=== PATIENT | female | born 1955 | race Caucasian/White ===

== ENCOUNTER 2021-02-09 13:36 | Outpatient (REF) | payer MEDICARE, SELFPAY ==
[2021-02-09 14:06] LABS: Blood Urea Nitrogen 21 mg/dL (9-16); Estimated Glomerular Filt Rate 45
== END 2021-02-09 13:37 | disposition home or self-care (01) ==
LOC: HO.LNP 13:36
PROVIDERS: Visit Provider Internal Medicine
DX: R79.9 Abnormal finding of blood chemistry, unspecified (principal)
CPT/HCPCS: 82565; 84520

== ENCOUNTER 2021-06-23 09:00 | Outpatient (REF) | payer MEDICARE, SELFPAY ==
--- NOTE | ~2021-06-23 | MM_ITS ---
EXAMINATION: MM SCREENING DIGITAL BREAST TOMOSYNTHESIS, BILATERAL CLINICAL INFORMATION: Screening. Asymptomatic. The lifetime risk of breast cancer based on the Tyrer-Cuzick Model is 2.8%. COMPARISON: Mammography: August 08, 2013 TECHNIQUE: Digital breast tomosynthesis is performed in both the craniocaudal and mediolateral oblique views along with computer-aided detection (CAD). Synthesized 2D images are generated from the tomosynthesis. FINDINGS: The breasts are almost entirely fatty (ACR BI-RADS breast composition Category a). There are no significant masses, abnormal calcifications, or other abnormalities. MM/MM tomosynthesis screening BI IMPRESSION: There are no significant changes from prior study. ASSESSMENT: BI-RADS 1: Negative RECOMMENDATION: Routine annual mammography screening. This patient's information was entered into a reminder system with a target due date for their next mammogram.
--- NOTE | ~2021-06-23 | MM_ITS ---
EXAMINATION: BONE DENSITOMETRY CLINICAL INDICATION: Screening for osteoporosis. COMPARISON: None (current study represents initial baseline exam). TECHNIQUE: Using a Web and Rank DXA System (software version: 13.1) manufactured by [employer], dual-energy x-ray absorptiometry was performed of the lumbar spine and left hip. The images are of good technical quality. Summary results are attached. FINDINGS: AP SPINE L1-L4: BMD 1.116 g/cm2, Z-score 0.9, T-score -0.5, normal. LEFT FEMUR, NECK: BMD 0.739 g/cm2, Z-score -0.7, T-score -2.2, osteopenia. LEFT FEMUR, TOTAL: BMD 0.819 g/cm2, Z-score -0.3, T-score -1.5, osteopenia. IDENTIFIED RISK FACTORS: Osteoporosis, tobacco use (current smoker). Early menopause, secondary osteoporosis, thiazide. HISTORY OF FRACTURE: None listed. MEDICATIONS: Vitamin D. MM/XR DEXA axial skeleton IMPRESSION: 1. DIAGNOSIS: Osteopenia based on the lowest T-score value of -2.2 in the femoral neck applying World Health Organization criteria. 2. 10-YEAR FRACTURE RISK PREDICTION, FRAX: Major osteoporotic fracture (clinical spine, forearm, hip or shoulder) 12.6%. Hip fracture 3.7%. 3. Treatment Recommendations: NOF guidelines recommend consideration for treatment in postmenopausal women and men age 50 and older presenting with the following: -A hip or vertebral (clinical or morphometric) fracture. -T-score less than or equal to -2.5 at the femoral neck or spine after appropriate evaluation to exclude secondary causes. -Low bone mass at the hip or spine and a 10-year fracture probability by FRAX of greater than or equal to 3% for hip fracture or greater than or equal to 20% for major osteoporotic fracture based on the [place] adapted WHO algorithm. 4. Other Recommendations: All treatment decisions require clinical judgment and consideration of individual patient factors, including patient preferences, comorbidities, previous drug use, risk factors not captured in the FRAX model (e.g. frailty, falls, vitamin D deficiency, increased bone turnover, interval significant decline in bone density) and possible under or overestimation of fracture risk by FRAX. Additional medical evaluation for secondary cause of low bone mineral density may be appropriate. FUTURE SCAN RECOMMENDATION: People with diagnosed cases of osteoporosis or at high risk for fracture should have regular bone mineral density tests. For patients eligible for Medicare, routine testing is allowed once every 2 years. The testing frequency can be increased to one year for patients who have rapidly progressing disease, those who are receiving or discontinuing medical therapy to restore bone mass, or have additional risk factors.
== END 2021-06-23 09:01 | disposition home or self-care (01) ==
LOC: HO.MAMMO 09:00
PROVIDERS: Visit Provider Internal Medicine
DX: Z12.31 Encounter for screening mammogram for malignant neoplasm of breast (principal); Z13.820 Encounter for screening for osteoporosis; N95.8 Other specified menopausal and perimenopausal disorders; M85.80 Other specified disorders of bone density and structure, unspecified site; F17.200 Nicotine dependence, unspecified, uncomplicated; Z78.0 Asymptomatic menopausal state; Z79.899 Other long term (current) drug therapy
CPT/HCPCS: 77063; 77067; 77080

== ENCOUNTER 2021-08-04 10:20 | Outpatient (REF) | payer MEDICARE, SELFPAY ==
[2021-08-04 10:24] LABS: MANUAL DIFF FLAG NO
[2021-08-04 11:20] LABS: Basophils Absolute Auto 0.1 X10*3/uL (0.0-0.2); Eosinophils Absolute Auto 0.6 X10*3/uL (0.0-0.4); Eosinophils Percent Auto 6.9 % (0-4); Hematocrit 33.1 % (37-47); Hemoglobin 11.2 g/dl (12.0-16.0); Imm Gran Abs Auto 0.01 X10*3/uL (0.00-0.03); Imm Gran Pct Auto 0.1 % (0.0-0.4); Lymphocytes Absolute Auto 2.8 X10*3/uL (1.2-4.9); Lymphocytes Percent Auto 31.7 % (20-40); Mean Corpuscular HGB Conc 33.8 g/dl (31.0-35.0); Mean Corpuscular Hemoglobin 31.4 pg (27.0-33.0); Mean Corpuscular Volume 92.7 fL (80-98); Mean Platelet Volume 10.3 fL (9.4-12.3); Monocytes Absolute Auto 0.6 X10*3/uL (0.1-1.2); Neutrophils Absolute Auto 4.6 X10*3/uL (2.0-8.3); Neutrophils Percent Auto 53.3 % (45-73); Platelet Count 301 X10*3/uL (160-400); Red Blood Count 3.57 X10*6/uL (4.20-5.50); Red Cell Distribution Width 12.6 % (11.0-16.0); White Blood Count 8.7 X10*3/uL (4.8-10.8)
[2021-08-04 11:57] LABS: Alanine Aminotransferase 20 U/L (0-31); Albumin Level 4.4 g/dL (3.5-5.0); Alkaline Phosphatase 69 U/L (39-117); Anion Gap 11 (12-20); Aspartate Amino Transferase 18 U/L (5-31); Bilirubin Total 0.5 mg/dL (0.0-1.0); Blood Urea Nitrogen 23 mg/dL (9-16); Calcium 9.8 mg/dL (8.4-10.2); Carbon Dioxide 25 mmol/L (22-29); Chloride 106 mmol/L (96-108); Cholesterol 175 mg/dL; Estimated Glomerular Filt Rate 46; Glucose Fasting 99 mg/dL (60-99); HDL Cholesterol 42 mg/dL; LDL Cholesterol Calculated 105 mg/dl; Sodium 138 mmol/L (135-145); Total Protein 7.4 g/dL (6.5-8.0); Triglycerides 144 mg/dL
[2021-08-04 12:22] LABS: Vitamin D 25-OH Total 40.1 ng/mL (>30)
[2021-08-04 12:42] LABS: Appearance Urine CLEAR; Color Urine YELLOW; Glucose Urine UA NEG (NEG); Leukocyte Esterase Urine NEG (NEG); Nitrite Urine NEG (NEG); Urine Blood TRACE (NEG); Urine Ketones NEG (NEG); Urine Protein NEG (NEG-TRACE)
[2021-08-04 12:45] LABS: Reflex LDLD? No
[2021-08-04 13:03] LABS: RBC Urine 0-2 /HPF (0); Squamous Epithelial Cell Urine TRACE /LPF; WBC Urine 0 /HPF (0-4)
== END 2021-08-04 10:21 | disposition home or self-care (01) ==
LOC: HO.LNP 10:20
PROVIDERS: Visit Provider Internal Medicine
DX: I10 Essential (primary) hypertension (principal); D64.9 Anemia, unspecified; R79.9 Abnormal finding of blood chemistry, unspecified; E78.00 Pure hypercholesterolemia, unspecified
CPT/HCPCS: 80053; 80061; 81001; 81003; 82306; 85025

== ENCOUNTER 2024-03-16 14:43 | Outpatient (REF) | payer MEDICARE, SELFPAY | END 2024-03-16 14:44 | disposition home or self-care (01) | LOC: HO.MAMMO 14:43 | PROVIDERS: PCP Physician Assistant Medical; Visit Provider Physician Assistant Medical | DX: Z12.31 Encounter for screening mammogram for malignant neoplasm of breast (principal) | CPT/HCPCS: 77063; 77067 ==

== ENCOUNTER → 2024-03-16 14:45 | Outpatient (BNV) | payer MEDICARE, SELFPAY | PROVIDERS: PCP Physician Assistant Medical; Visit Provider Radiology Diagnostic Radiology | DX: Z12.31 Encounter for screening mammogram for malignant neoplasm of breast (principal) | CPT/HCPCS: 77063; 77067 ==

== ENCOUNTER 2024-05-29 10:03 | Outpatient (AMB) | payer MEDICARE, SELFPAY ==
--- NOTE | 2024-05-29 10:09 | MHC.PC.OV ---
Vital Signs 05/29/24 10:18 05/29/24 10:21 Height 5 ft 0.43 in Weight 172 lb BMI 33.1 BP 168/80 H 156/76 H Blood Pressure Location Lt brachial Lt brachial Position Sitting Sitting Respiration 14 Pulse 66 Pulse Source Pulse Oximeter Temp 98.2 F Temp Source Oral Pulse Oximetry (%) 98 Oxygen Delivery Method Room Air Intake Visit Reasons: [facility] from [facility] Allergies iodine Allergy (Intermediate, Verified 05/28/24 14:04) Rash sulfadiazine Allergy (Intermediate, Verified 05/28/24 14:04) Rash rosuvastatin Adverse Reaction (Mild, Verified 05/28/24 14:04) Nausea doxazosin Allergy (Unknown, Uncoded 05/28/24 14:04) Unknown zetia Allergy (Unknown, Uncoded 05/28/24 14:04) Unknown amlodipine Adverse Reaction (Mild, Uncoded 05/28/24 14:04) Abdominal Pain chlorthalidone Adverse Reaction (Mild, Uncoded 05/28/24 14:04) Abdominal Pain Tobacco use date assessed: 05/29/24 Fall risk assessment: No Falls in past year Last assessed Fall Risk: 05/29/24 Dental Screening Dental Screen Date: 05/29/24 Did you have a dental visit in the last 12 months?: Yes Did you have a dental problem in the last 6 months where you did not have access to dental care?: No Was dental information given to patient?: No HPI HPI Comments History of Present Illness Details This is a 69-year-old female with a past medical history of severe aortoiliac occlusive disease, renovascular hypertension, episode of kidney failure, iron deficiency anemia, aortic stenosis, coronary artery stenosis, IBS and GERD presenting to transfer from my practice at [facility] primary care. She underwent aortic endarterectomy and aortobifemoral bypass with reimplantation of her left renal artery 04/06/2023. Her postoperative course was complicated by an infected seroma of her thoracoabdominal incision which was evacuated on 04/29/2023. She is followed by Dr. Jenkins. She is followed by Dr. Lund. She had a negative nuclear stress test prior to her surgery last year. She did not tolerate rosuvastatin and atorvastatin. She takes 40 mg of simvastatin. We discussed starting a PCSK9 inhibitor, but she deferred it due to the cost. It was 400 dollars despite insurance coverage. She continues on oral iron supplementation for anemia. She is followed by Dr. Martinez for hypertension and CKD stage IIIA. Since increasing hydralazine to 25 mg 3 times a day her blood pressure is much better. She has a component of office hypertension. This is well documented. She brought a list of recent home readings: 05/29/2024 125/60, 103/53 05/26/2024 128/53, 142/65 05/17/2024 129/62, 140/68 05/07/2024 154/72, 126/63 04/24/2024 112/57, 138/64, 137/59 04/20/2024 139/65 04/13/2024 137/63 04/09/2024 135/58 She endorses worsening arthritis in her hands and knees. She takes Tylenol. It is not very helpful. She does not want to take prescription pain medications, and she can not take NSAIDs. She admits to dietary indiscretion. She eats a lot of sweets. She has ice cream every night. She wants to lose weight. ROS: Constitutional: No unexplained weight loss, fever, chills, fatigue or night sweats. Respiratory: No shortness of breath Cardiovascular: No chest pain Gastrointestinal: No abdominal pain, nausea, vomiting or diarrhea. Neurologic: No headache, dizziness, syncope Constitutional: Alert, in no distress. Head: Normocephalic. Neck: Supple, Full range of motion. No lymphadenopathy Respiratory: Clear to auscultation. Cardiovascular: S1 S2 regular. + systolic murmur. Neurologic: No focal neurological deficits. Extremities: Warm and well perfused. 1+ bilateral ankle edema. Psychiatric: Normal mood and affect [facility] Medical History (Updated 05/29/24 @ 14:05 by JACOB Alex) Obesity with serious comorbidity Bilateral knee pain Bilateral hand pain History of acute renal failure IBS (irritable bowel syndrome) Aortic stenosis IDALMIS (iron deficiency anemia) Hyperlipidemia LDL goal <70 History of Helicobacter pylori infection CKD stage 3a, GFR 45-59 ml/min GERD (gastroesophageal reflux disease) Carotid artery stenosis Renovascular hypertension PAD (peripheral artery disease) Acute blood loss anemia Abdominal aortic aneurysm (AAA) Surgical History (Updated 05/28/24 @ 13:54 by JACOB Alex) H/O vascular surgery H/O section H/O sinus surgery History of appendectomy History of cholecystectomy Family History (Updated 05/29/24 @ 10:18 by Marie Jim CMA) Mother Cancer Heart disease Hyperlipidemia Hypertension Father Hypertension TIA (transient ischemic attack) Sister Heart disease Hypertension Maternal Grandmother Diabetes mellitus Maternal Grandfather Diabetes mellitus Paternal Grandmother Diabetes mellitus Paternal Grandfather Diabetes mellitus Social History (Updated 05/29/24 @ 10:17 by Marie Jim CMA) Housing: [facility] Patient Tobacco Use Status: Former Tobacco user Tobacco use type: Cigarette Cigarette Packs Per Day: 0.5 Years Smoked: 30 e-Cigarette/Vaping Use: Never Used Second Hand Smoke Exposure: No service: No Current occupational status: retired Cognitive needs: No Hearing needs: No Vision needs: No Questionnaire PHQ-9 Over the last 2 weeks, how often have you been bothered by any of the following problems? 1. Little interest or pleasure in doing things: not at all 2. Feeling down, depressed, or hopeless: not at all 3. Trouble falling or staying asleep, or sleeping too much: not at all 4. Feeling tired or having little energy: not at all 5. Poor appetite or overeating: not at all 6. Feeling bad about yourself - or that you are a failure or have let yourself or your family down: not at all 7. Trouble concentrating on things, such as reading the newspaper or watching television: not at all 8. Moving or speaking so slowly that other people could have noticed. Or the opposite - being so fidgety or restless that you have been moving around a lot more than usual: not at all 9. Thoughts that you would be better off or of hurting yourself in some way: not at all Total score: 0 Depression Screening Interpretation: Negative Depression Screening Done: Yes 29268 - PHQ-9 Billing: Yes Source: Developed by Drs. Kane Carreon, Stephanie Shea, Jarrett Glover and colleagues, with an educational laurel from [employer]. Thrive Questionnaire Date Thrive assessed: 05/29/24 I am a: Patient What is your living situation today?: I have a steady place to live Within the past 12 months, did the food you bought not last and you didn't have the money to get more?: Never true Within the past 12 months, did you worry whether your food would run out before you got money to buy more?: Never true Do you have trouble paying for medicines?: No Do you have trouble getting transportation to medical appointments?: No Do you have trouble paying your heating and electricity bill?: No Do you have trouble taking care of your child, family member or friend?: No Do you have trouble with day-to-day activities such as bathing, preparing meals, shopping, managing finances, etc.?: No Are you currently unemployed and looking for a job?: No Are you interested in more education?: No Please select the resources that you would like help with: None Currently or been in a relationship where the following occur: No concerns reported THRIVE Score: 0 AUDIT C Alcohol Use Questionnaire (AUDIT-C) 1. How often do you have a drink containing alcohol?: Never 3. How often do you have six or more drinks on one occasion?: Never Total Score: 0 SAPPHIRE-7 AMB Questionnaire SAPPHIRE-7 Date SAPPHIRE - 7 assessed: 05/29/24 Feeling nervous, anxious, or on edge: 0 = Not at all Not being able to stop or control worryin = Not at all Worrying too much about different things: 0 = Not at all Trouble relaxin = Not at all Being so restless that it is hard to sit still: 0 = Not at all Becoming easily annoyed or irritable: 0 = Not at all Feeling afraid as if something awful might happen: 0 = Not at all Total SAPPHIRE-7 score (0-4 normal; 5-9 mild; 10-14 moderate; 15-21 severe): 0 Source: Developed by Drs. Kane Carreon, Stephanie Shea, Jarrett Glover and colleagues, with an educational laurel from [employer]. SAPPHIRE-7 Assessment Billing SAPPHIRE-7 Assessment Tool: SAPPHIRE-7 Assessment 88949 Physical exam (Primary Care) Vital Signs: Last Vital Signs Temp 98.2 F 05/29/24 10:18 Pulse 66 05/29/24 10:18 Resp 14 05/29/24 10:18 BP 156/76 H 05/29/24 10:21 Pulse Ox 98 05/29/24 10:18 Oxygen Delivery Method Room Air 05/29/24 10:18 BMI result Body Mass Index 33.1 Tobacco/Smoking Status: Tobacco use Status Tobacco use date assessed 05/29/24 05/29/24 10:25 Patient Tobacco Use Status Former Tobacco user 05/29/24 10:25 Tobacco use type Cigarette 05/29/24 10:25 e-Cigarette/Vaping Use Never Used 05/29/24 10:25 PHQ-9: PHQ-9 Score PHQ-9: Total score 0 05/29/24 11:01 Depression Screening Interpretation: Negative Thrive Assessment: Date of Thrive Assessment Date Thrive assessed 05/29/24 05/29/24 11:01 Currently or been in a relationship where the following occur: No concerns reported Assessment and Plan Assessment & Plan (1) Bilateral hand pain: Code(s): M79.641 - Pain in right hand; M79.642 - Pain in left hand Plan: Continue Tylenol as needed up to 3000 mg in a day. Ordered x-rays. To consider referral to hand surgeon or PT. (2) Bilateral knee pain: Code(s): M25.561 - Pain in right knee; M25.562 - Pain in left knee Qualifiers: Chronicity: chronic Qualified Code(s): M25.561 - Pain in right knee; M25.562 - Pain in left knee; G89.29 - Other chronic pain Plan: Ordered x-rays. She can use lidocaine patches and Tylenol. To consider referral to PT and Orthopedics. (3) Obesity with serious comorbidity: Code(s): E66.9 - Obesity, unspecified Qualifiers: Obesity type: due to excess calories Obesity classification: adult class 1 (BMI 30 - 34.9) Body mass index: BMI 33.0-33.9 Qualified Code(s): E66.09 - Other obesity due to excess calories; Z68.33 - Body mass index [BMI] 33.0-33.9, adult Plan: Lifestyle modifications reviewed with the patient. Refer to dietitian. (4) PAD (peripheral artery disease): Code(s): I73.9 - Peripheral vascular disease, unspecified Plan: Followed closely by vascular surgery. Continue modification of risk factors. Former smoker. Patient did not tolerate atorvastatin, rosuvastatin. Currently on simvastatin with LDL not at goal. Repatha covered by insurance, but her co-pay was very high. Given number to contact manufacture to see if she can obtain a discount. (5) Renovascular hypertension: Code(s): I15.0 - Renovascular hypertension Plan: Interval improvement. Continue hydralazine 25 mg 3 times daily. We discussed adding back a low-dose of hydrochlorothiazide. 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 (6) CKD stage 3a, GFR 45-59 ml/min: Code(s): N18.31 - Chronic kidney disease, stage 3a Plan: Follow up with Nephrology as planned. Continue avoidance of nephrotoxic medications. (7) Hyperlipidemia LDL goal <70: Code(s): E78.5 - Hyperlipidemia, unspecified Plan: See notes above regarding PAD. Continue statin at this time. Orders: Orders XR hand RT 2V Today M25.561 - Pain in right knee, M25.562 - Pain in left knee, M79.641 - Pain in right hand, M79.642 - Pain in left hand Complete Blood Count no Diff Today D50.9 - Iron deficiency anemia, unspecified, E66.09 - Other obesity due to excess calories, E78.5 - Hyperlipidemia, unspecified, I15.0 - Renovascular hypertension, N18.31 - Chronic kidney disease, stage 3a, Z68.33 - Body mass index [BMI] 33.0-33.9, adult TSH reflex Free T4 Today D50.9 - Iron deficiency anemia, unspecified, E66.09 - Other obesity due to excess calories, E66.9 - Obesity, unspecified, E78.5 - Hyperlipidemia, unspecified, I15.0 - Renovascular hypertension, N18.31 - Chronic kidney disease, stage 3a, Z68.33 - Body mass index [BMI] 33.0-33.9, adult IRON PROFILE Today D50.9 - Iron deficiency anemia, unspecified, E66.09 - Other obesity due to excess calories, E78.5 - Hyperlipidemia, unspecified, I15.0 - Renovascular hypertension, N18.31 - Chronic kidney disease, stage 3a, Z68.33 - Body mass index [BMI] 33.0-33.9, adult XR hand LT 2V Today M25.561 - Pain in right knee, M25.562 - Pain in left knee, M79.641 - Pain in right hand, M79.642 - Pain in left hand XR knee LT 2V Today M25.561 - Pain in right knee, M25.562 - Pain in left knee, M79.641 - Pain in right hand, M79.642 - Pain in left hand XR knee RT 2V Today M25.561 - Pain in right knee, M25.562 - Pain in left knee, M79.641 - Pain in right hand, M79.642 - Pain in left hand Lipid Panel Today D50.9 - Iron deficiency anemia, unspecified, E66.09 - Other obesity due to excess calories, E78.5 - Hyperlipidemia, unspecified, I15.0 - Renovascular hypertension, N18.31 - Chronic kidney disease, stage 3a, Z68.33 - Body mass index [BMI] 33.0-33.9, adult Comprehensive Met. 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 Nutrition Referral E66.9 - Obesity, unspecified, E78.5 - Hyperlipidemia, unspecified, I73.9 - Peripheral vascular disease, unspecified Coding Level of Care Code Est Pt Level 4 (74302) Complex EM visit Add On G2211 Diagnoses Bilateral hand pain M79.641; M79.642 Chronic pain of both knees M25.561; M25.562; G89.29 Chronicity: chronic Class 1 obesity due to excess calories with serious comorbidity and body mass index (BMI) of 33.0 to 33.9 in adult E66.09; Z68.33 Obesity type: due to excess calories Obesity classification: adult class 1 (BMI 30 - 34.9) Body mass index: BMI 33.0-33.9 PAD (peripheral artery disease) I73.9 Renovascular hypertension I15.0 CKD stage 3a, GFR 45-59 ml/min N18.31 Hyperlipidemia LDL goal <70 E78.5 Additional Codes SAPPHIRE-7 Assessment Billing - SAPPHIRE-7 Assessment Tool: SAPPHIRE-7 Assessment 14695 ([id number])
[2024-05-29 10:18] VITALS: BP 168/80; PULSE 66; RESP 14; TEMP 36.8; O2SAT 98; BMI 33.1
[2024-05-29 10:21] VITALS: BP 156/76
== END 2024-05-29 11:02 | disposition home or self-care (01) ==
PROVIDERS: PCP Physician Assistant Medical; Visit Provider Physician Assistant Medical
DX: M79.641 Pain in right hand (principal); I73.9 Peripheral vascular disease, unspecified; N18.31 Chronic kidney disease, stage 3a; M79.642 Pain in left hand; M25.561 Pain in right knee; M25.562 Pain in left knee; G89.29 Other chronic pain; E66.09 Other obesity due to excess calories; Z68.33 Body mass index [BMI] 33.0-33.9, adult; I15.0 Renovascular hypertension; E78.5 Hyperlipidemia, unspecified
CPT/HCPCS: 99214; G2211

== ENCOUNTER 2024-06-18 09:22 | Outpatient (AMB) | payer MEDICARE, SELFPAY ==
[2024-06-18 09:40] VITALS: BMI 33.2
--- NOTE | 2024-06-18 09:40 | A.OFFVIS_ITS ---
VS Expanded 06/18/24 09:40 06/21/24 11:07 Height 5 ft 0.4 in 5 ft 4 in Weight 172 lb 2.896 oz 172 lb BMI 33.2 29.5 Intake Visit Reasons: Hyperlipidemia, Obesity/CONFIRMED Allergies iodine Allergy (Intermediate, Verified 05/28/24 14:04) Rash sulfadiazine Allergy (Intermediate, Verified 05/28/24 14:04) Rash rosuvastatin Adverse Reaction (Mild, Verified 05/28/24 14:04) Nausea doxazosin Allergy (Unknown, Uncoded 05/28/24 14:04) Unknown zetia Allergy (Unknown, Uncoded 05/28/24 14:04) Unknown amlodipine Adverse Reaction (Mild, Uncoded 05/28/24 14:04) Abdominal Pain chlorthalidone Adverse Reaction (Mild, Uncoded 05/28/24 14:04) Abdominal Pain Nutrition Presentation Details: Pt presents for MNT for PAD, hyperlipidemia, obesity. Pt was referred by PCP, Terese Bolanos Pt reports working on meal planning, typical meal intake: B: 3/4 cup of oatmeal and fat free milk/water and nuts, tea /2 tsp sugar l: 1/2 sand on oatbread with turkey or chicken /marcos, cranberry sauce, coffee /sugar/creamer flavored dinner: chicken, rice/green beans, ice cream cone physical activity: walking 10 + min daily activities etoh: denies smoking: denies BS Monitoring Most Recent Diabetes Results: 2 Cholesterol 175 mg/dL 08/04/21 HDL Cholesterol 42 mg/dL 08/04/21 Triglycerides 144 mg/dL 08/04/21 Creatinine 1.18 mg/dL (0.5-1.4) 08/04/21 Blood Urea Nitrogen 23 mg/dL (9-16) H 08/04/21 Sodium 138 mmol/L (135-145) 08/04/21 Potassium 4.0 mmol/L (3.3-5.1) 08/04/21 Chloride 106 mmol/L (96-108) 08/04/21 Carbon Dioxide 25 mmol/L (22-29) 08/04/21 Calcium 9.8 mg/dL (8.4-10.2) 08/04/21 AST 18 U/L (5-31) 08/04/21 ALT 20 U/L (0-31) 08/04/21 Total Protein 7.4 g/dL (6.5-8.0) 08/04/21 Albumin 4.4 g/dL (3.5-5.0) 08/04/21 QVG-Kyhdytu-Ef.Jenifer Equation Height: 5 ft 4 in Weight: 172 lb Resting Metabolic Rate: 1290.00 Calculated Activity Level: Mild Activity Calories Needed to Maintain Weight: 1773.75 Diagnosis Nutrition problem #1: food nutri know defi As related to (etiology) #1: diagnosis As evidenced by (sign/symptom) #1: knowledge deficit of diet [facility] Medical History (Updated 06/21/24 @ 12:11 by Ju Khan, RD, LDN) Obesity with serious comorbidity Bilateral knee pain Bilateral hand pain History of acute renal failure IBS (irritable bowel syndrome) Aortic stenosis IDALMIS (iron deficiency anemia) Hyperlipidemia LDL goal <70 History of Helicobacter pylori infection CKD stage 3a, GFR 45-59 ml/min GERD (gastroesophageal reflux disease) Carotid artery stenosis Renovascular hypertension PAD (peripheral artery disease) Acute blood loss anemia Abdominal aortic aneurysm (AAA) Surgical History (Updated 05/28/24 @ 13:54 by JACOB Alex) H/O vascular surgery H/O section H/O sinus surgery History of appendectomy History of cholecystectomy Family History (Updated 05/29/24 @ 10:18 by Marie Jim CMA) Mother Cancer Heart disease Hyperlipidemia Hypertension Father Hypertension TIA (transient ischemic attack) Sister Heart disease Hypertension Maternal Grandmother Diabetes mellitus Maternal Grandfather Diabetes mellitus Paternal Grandmother Diabetes mellitus Paternal Grandfather Diabetes mellitus Social History (Updated 05/29/24 @ 10:17 by Marie Jim CMA) Housing: Condominium Patient Tobacco Use Status: Former Tobacco user Tobacco use type: Cigarette Cigarette Packs Per Day: 0.5 Years Smoked: 30 e-Cigarette/Vaping Use: Never Used Second Hand Smoke Exposure: No service: No Current occupational status: retired Cognitive needs: No Hearing needs: No Vision needs: No Assessment & Plan Assessment & Plan (1) Hyperlipidemia LDL goal <70: Comment: Pt also with PAD, obesity Code(s): E78.5 - Hyperlipidemia, unspecified Category: Medical Plan: Wt: 78 Kg ( 06/20 ) Est kcal needs as per MSJ: 1800 (40% carb, 30% protein/fat) Est fluid needs as per 25-30 ml/d: 2300 Est prot per day as per 1 g/kg bw: 78 Recommend fiber intake : 8-10 g per day and gradually increase to 25-28 g per day for women and 35-38 g for men or as tolerated Recommend sodium intake per day : less than 2000 mg Educated patient on: ( R = reviewed V = verbalizes understanding N/R = needs review N/A = not applicable * Food sources of carbohydrate, adequate serving sizes and its role in various health conditions: R V N/R * Differences between complex carbohydrates a simple carbohydrates, role of fiber in diet: R V N/R * Lean protein sources of foods: R * Differences between types of fats and role in diet (mono on saturated fat fatty acids, saturated fatty acids, trans fats): R * Food sources of sodium in salt and healthy modifications for heart health in kidney health: R V R/V * Vitamins and minerals: R V N/R * Healthy plate method concept: R * Physical activity: Benefits a precaution: R V N/R Patient Instructions: Include food sources of omega 3 (nuts/seeds/fish/avocado) Have a yogurt or glucerna shake or apple/peanut butter as bedtime snack ,replacing pastries Coding Level of Care Code Nutr Indiv Intake (98167) Diagnoses Hyperlipidemia LDL goal <70 E78.5 Time Spent (min) 30
[2024-06-21 11:07] VITALS: BMI 29.5
== END 2024-06-18 10:16 | disposition home or self-care (01) ==
PROVIDERS: PCP Physician Assistant Medical; Visit Provider Dietitian, Registered
DX: E78.5 Hyperlipidemia, unspecified (principal)

== ENCOUNTER → 2024-06-18 09:22 | Outpatient (BNVA) | payer MEDICARE, SELFPAY | PROVIDERS: PCP Physician Assistant Medical; Visit Provider Dietitian, Registered | DX: E78.5 Hyperlipidemia, unspecified (principal); E66.9 Obesity, unspecified; N18.31 Chronic kidney disease, stage 3a; Z71.3 Dietary counseling and surveillance; Z68.33 Body mass index [BMI] 33.0-33.9, adult | CPT/HCPCS: 97802 ==

== ENCOUNTER 2024-08-02 10:50 | Outpatient (AMB) | payer MEDICARE, SELFPAY ==
--- NOTE | 2024-08-02 11:01 | A.OFFVIS_ITS ---
VS Expanded 08/02/24 11:01 Height 5 ft 4 in Weight 174 lb 9.698 oz BMI 30.0 Intake Visit Reasons: Hyperlipidemia, Obesity/LVM Allergies iodine Allergy (Intermediate, Verified 05/28/24 14:04) Rash sulfadiazine Allergy (Intermediate, Verified 05/28/24 14:04) Rash rosuvastatin Adverse Reaction (Mild, Verified 05/28/24 14:04) Nausea doxazosin Allergy (Unknown, Uncoded 05/28/24 14:04) Unknown zetia Allergy (Unknown, Uncoded 05/28/24 14:04) Unknown amlodipine Adverse Reaction (Mild, Uncoded 05/28/24 14:04) Abdominal Pain chlorthalidone Adverse Reaction (Mild, Uncoded 05/28/24 14:04) Abdominal Pain Nutrition Presentation Details: Pt presents for MNT f/u for hyperlipidemia BS Monitoring Most Recent Diabetes Results: Cholesterol 175 mg/dL 08/04/21 HDL Cholesterol 42 mg/dL 08/04/21 Triglycerides 144 mg/dL 08/04/21 Creatinine 1.18 mg/dL (0.5-1.4) 08/04/21 Blood Urea Nitrogen 23 mg/dL (9-16) H 08/04/21 Sodium 138 mmol/L (135-145) 08/04/21 Potassium 4.0 mmol/L (3.3-5.1) 08/04/21 Chloride 106 mmol/L (96-108) 08/04/21 Carbon Dioxide 25 mmol/L (22-29) 08/04/21 Calcium 9.8 mg/dL (8.4-10.2) 08/04/21 AST 18 U/L (5-31) 08/04/21 ALT 20 U/L (0-31) 08/04/21 Total Protein 7.4 g/dL (6.5-8.0) 08/04/21 Albumin 4.4 g/dL (3.5-5.0) 08/04/21 [facility] Medical History (Updated 06/21/24 @ 12:11 by Ju Khan, RD, LDN) Obesity with serious comorbidity Bilateral knee pain Bilateral hand pain History of acute renal failure IBS (irritable bowel syndrome) Aortic stenosis IDALMIS (iron deficiency anemia) Hyperlipidemia LDL goal <70 History of Helicobacter pylori infection CKD stage 3a, GFR 45-59 ml/min GERD (gastroesophageal reflux disease) Carotid artery stenosis Renovascular hypertension PAD (peripheral artery disease) Acute blood loss anemia Abdominal aortic aneurysm (AAA) Surgical History (Updated 05/28/24 @ 13:54 by JACOB Alex) H/O vascular surgery H/O section H/O sinus surgery History of appendectomy History of cholecystectomy Family History (Updated 05/29/24 @ 10:18 by Marie Jim CMA) Mother Cancer Heart disease Hyperlipidemia Hypertension Father Hypertension TIA (transient ischemic attack) Sister Heart disease Hypertension Maternal Grandmother Diabetes mellitus Maternal Grandfather Diabetes mellitus Paternal Grandmother Diabetes mellitus Paternal Grandfather Diabetes mellitus Social History (Updated 05/29/24 @ 10:17 by Marie Jim CMA) Housing: Condominium Patient Tobacco Use Status: Former Tobacco user Tobacco use type: Cigarette Cigarette Packs Per Day: 0.5 Years Smoked: 30 e-Cigarette/Vaping Use: Never Used Second Hand Smoke Exposure: No service: No Current occupational status: retired Cognitive needs: No Hearing needs: No Vision needs: No Assessment & Plan Assessment & Plan (1) Hyperlipidemia LDL goal <70: Comment: Pt also with PAD, obesity Code(s): E78.5 - Hyperlipidemia, unspecified Category: Medical Plan: Wt: 78 Kg ( 06/20 ), 78 kg (08/21) Est kcal needs as per MSJ: 1800 (40% carb, 30% protein/fat) Est fluid needs as per 25-30 ml/d: 2300 Est prot per day as per 1 g/kg bw: 78 Recommend fiber intake : 8-10 g per day and gradually increase to 25-28 g per day for women and 35-38 g for men or as tolerated Recommend sodium intake per day : less than 2000 mg Educated patient on: ( R = reviewed V = verbalizes understanding N/R = needs review N/A = not applicable * Food sources of carbohydrate, adequate serving sizes and its role in various health conditions: R V N/R * Differences between complex carbohydrates a simple carbohydrates, role of fiber in diet: R V N/R * Lean protein sources of foods: R * Differences between types of fats and role in diet (mono on saturated fat fatty acids, saturated fatty acids, trans fats): R * Food sources of sodium in salt and healthy modifications for heart health in kidney health: R V R/V * Vitamins and minerals: R V N/R * Healthy plate method concept: R * Physical activity: Benefits a precaution: R Patient Instructions: Modify recipes by choosing ingredients lower in fat and high in fiber - see list of options Coding Level of Care Code Nutr Indiv Subseq (65326) Diagnoses Hyperlipidemia LDL goal <70 E78.5 Time Spent (min) 25
== END 2024-08-02 11:21 | disposition home or self-care (01) ==
PROVIDERS: PCP Physician Assistant Medical; Visit Provider Dietitian, Registered
DX: E78.5 Hyperlipidemia, unspecified (principal)

== ENCOUNTER → 2024-08-02 10:50 | Outpatient (BNVA) | payer MEDICARE, SELFPAY | PROVIDERS: PCP Physician Assistant Medical; Visit Provider Dietitian, Registered | DX: E66.9 Obesity, unspecified (principal); E78.5 Hyperlipidemia, unspecified; N18.31 Chronic kidney disease, stage 3a; Z71.3 Dietary counseling and surveillance; Z68.30 Body mass index [BMI] 30.0-30.9, adult | CPT/HCPCS: 97803 ==

== ENCOUNTER 2024-08-06 10:00 | Outpatient (AMB) | payer MEDICARE, SELFPAY ==
--- NOTE | 2024-08-06 10:03 | AM.OFFWIN_ITS ---
Intake Vital Signs 08/06/24 10:13 Height 5 ft 4 in Weight 173 lb 6 oz BMI 29.8 BP 142/72 H Blood Pressure Location Lt brachial Position Sitting Respiration 15 Pulse 87 Pulse Source Pulse Oximeter Pulse Oximetry (%) 98 Oxygen Delivery Method Room Air Intake Visit Reasons: est/ uti Intake Note: patient is complaining of burning, itching and pain when urinating. patient also complaining of lower back pain Patient Tobacco Use Status: Former Tobacco user Allergies iodine Allergy (Intermediate, Verified 08/06/24 10:32) Rash sulfadiazine Allergy (Intermediate, Verified 08/06/24 10:32) Rash rosuvastatin Adverse Reaction (Mild, Verified 08/06/24 10:32) Nausea doxazosin Allergy (Unknown, Uncoded 08/06/24 10:32) Unknown zetia Allergy (Unknown, Uncoded 08/06/24 10:32) Unknown amlodipine Adverse Reaction (Mild, Uncoded 08/06/24 10:32) Abdominal Pain chlorthalidone Adverse Reaction (Mild, Uncoded 08/06/24 10:32) Abdominal Pain HPI HPI Comments History of Present Illness Details 69 y/o F with CKD 3A here today for conc karla for UTI. She reports that a few weeks ago she was having external vaginal itching which she treated with vaginal with positive relief. On Tuesday she felt like she had to urinate but could not. She felt pain in her lower abdomen and pressure in her bladder. She then developed frequency and dysuria. She liberally hydrated with water and cranberry juice and did feel some improvement in her symptoms. However her symptoms are still present today. She also continues with vaginal itch. She admits vaginal dryness without discharge. She denies any fever chills nausea vomiting Exam Awake alert oriented, no acute distress Mucous membranes moist Regular rate and rhythm, positive murmur which patient states is chronic No CVAT bilat Positive suprapubic tenderness Plan Urine dip + in the office today. Her last GFR was in the 40s. The plan will be to treat her with cephalexin twi ce per day. Liberally hydrate. We will also treat her external vaginal itch with Monistat. Return to office education provided today. This note is constructed using voice recognition software. While every effort has been made to ensure accuracy in delicatessen department manager, still errors may have been included Sometimes, these errors may affect the content or meaning of the given sentence . Total time spent caring for the patient today was 30 minutes. This includes time spent before the visit reviewing the chart, time spent during the visit, and time spent after the visit on documentation [facility] Medical History (Updated 08/06/24 @ 15:12 by Germaine Matthew [facility]) Obesity with serious comorbidity Bilateral knee pain Bilateral hand pain History of acute renal failure IBS (irritable bowel syndrome) Aortic stenosis IDALMIS (iron deficiency anemia) Hyperlipidemia LDL goal <70 History of Helicobacter pylori infection CKD stage 3a, GFR 45-59 ml/min GERD (gastroesophageal reflux disease) Carotid artery stenosis Renovascular hypertension PAD (peripheral artery disease) Acute blood loss anemia Abdominal aortic aneurysm (AAA) Surgical History (Updated 05/28/24 @ 13:54 by JACOB Alex) H/O vascular surgery H/O section H/O sinus surgery History of appendectomy History of cholecystectomy Family History (Updated 05/29/24 @ 10:18 by Marie Jim CMA) Mother Cancer Heart disease Hyperlipidemia Hypertension Father Hypertension TIA (transient ischemic attack) Sister Heart disease Hypertension Maternal Grandmother Diabetes mellitus Maternal Grandfather Diabetes mellitus Paternal Grandmother Diabetes mellitus Paternal Grandfather Diabetes mellitus Social History (Updated 05/29/24 @ 10:17 by Marie Jim CMA) [facility] Patient Tobacco Use Status: Former Tobacco user Tobacco use type: Cigarette Cigarette Packs Per Day: 0.5 Years Smoked: 30 e-Cigarette/Vaping Use: Never Used Second Hand Smoke Exposure: No service: No Current occupational status: retired Cognitive needs: No Hearing needs: No Vision needs: No Physical Exam Vital Signs: Last Vital Signs Pulse 87 08/06/24 10:13 Resp 15 08/06/24 10:13 BP 142/72 H 08/06/24 10:13 Pulse Ox 98 08/06/24 10:13 Oxygen Delivery Method Room Air 08/06/24 10:13 BMI result Body Mass Index 29.8 Results AMB Urinalysis Dipstick UR Leukocytes Small Last Edit by Keya Ortega MA on 08/06/24 14:47 UR Nitrite Positive Last Edit by Keya Ortega MA on 08/06/24 14:47 UR Urobilinogen Normal Last Edit by Keya Ortega MA on 08/06/24 14:47 UR Protein Trace Last Edit by Keya Ortega MA on 08/06/24 14:47 UR Ph 5.0 Last Edit by Keya Ortega MA on 08/06/24 14:47 UR Blood Negative Last Edit by Keya Ortega MA on 08/06/24 14:47 UR Specific [place] 1.025 Last Edit by Keya Ortega MA on 08/06/24 14:4 7 UR Ketone Negative Last Edit by Keya Ortega MA on 08/06/24 14:47 UR Bilirubin Small Last Edit by Keya Ortega MA on 08/06/24 14:47 UR Glucose Negative Last Edit by Keya Ortega MA on 08/06/24 14:47 Results Reviewed Results Reviewed: Laboratory Last Values Urine pH (Clinic) 5.0 08/06/24 14:44 Specific [place] (Clinic) 1.025 08/06/24 14:44 Ur Protein (Clinic) Trace 08/06/24 14:44 Ur Ketones (Clinic) Negative 08/06/24 14:44 Urine Blood (Clinic) Negative 08/06/24 14:44 Urine Nitrite Positive 08/06/24 14:44 Urine Bilirubin (Clinic) Small 08/06/24 14:44 Urobilinogen (Clinic) Normal 08/06/24 14:44 Leukocyte Esterase (Clinic) Small 08/06/24 14:44 Urine Glucose (Clinic) Negative 08/06/24 14:44 Assessment & Plan Assessment & Plan (1) UTI (urinary tract infection): Code(s): N39.0 - Urinary tract infection, site not specified Qualifiers: Urinary tract infection type: acute cystitis Hematuria presence: without hematuria Qualified Code(s): N30.00 - Acute cystitis without hematuria Plan: . (2) CKD stage 3a, GFR 45-59 ml/min: Code(s): N18.31 - Chronic kidney disease, stage 3a Plan: . (3) Vaginal pruritus: Code(s): N89.8 - Other specified noninflammatory disorders of vagina Plan . Orders: Orders AMB Urinalysis Dipstick Today R30.0 - Dysuria Medications: New cephalexin 500 mg PO Q12H 10 caps 0RF 5 days miconazole nitrate 2% (Monistat 7) 1 appful vaginal BEDTIME 45 grams 0RF 7 days Coding Level of Care Code Est Pt Level 4 (46407) Diagnoses Acute cystitis without hematuria N30.00 Urinary tract infection type: acute cystitis Hematuria presence: without hematuria CKD stage 3a, GFR 45-59 ml/min N18.31 Vaginal pruritus N89.8
[2024-08-06 10:13] VITALS: BP 142/72; PULSE 87; RESP 15; O2SAT 98; BMI 29.8
== END 2024-08-06 10:41 | disposition home or self-care (01) ==
PROVIDERS: PCP Physician Assistant Medical; Visit Provider Nurse Practitioner Family
DX: N30.00 Acute cystitis without hematuria (principal); N18.31 Chronic kidney disease, stage 3a; N89.8 Other specified noninflammatory disorders of vagina; R30.0 Dysuria
CPT/HCPCS: 81002; 99214

== ENCOUNTER 2024-08-08 08:04 | Outpatient (REF) | payer MEDICARE, SELFPAY ==
[2024-08-08 11:35] LABS: Hematocrit 29.7 % (37.0-47.0); Hemoglobin 9.5 g/dl (12.0-16.0); Mean Corpuscular Hemoglobin 29.6 pg (27.0-33.0); Mean Corpuscular Volume 92.5 fL (80.0-98.0); Mean Platelet Volume 9.8 fL (9.4-12.3); Platelet Count 283 X10*3/uL (160-400); Red Blood Count 3.21 X10*6/uL (4.20-5.50); Red Cell Distribution Width 13.9 % (11.0-16.0); White Blood Count 5.4 X10*3/uL (4.8-10.8)
[2024-08-08 12:15] LABS: Alanine Aminotransferase 18 U/L (0-31); Albumin Level 4.3 g/dL (3.5-5.0); Alkaline Phosphatase 71 U/L (39-117); Anion Gap 13 (12-20); Aspartate Amino Transferase 19 U/L (5-31); Bilirubin Total 0.3 mg/dL (0.0-1.0); Blood Urea Nitrogen 26 mg/dL (9-16); Calcium 9.9 mg/dL (8.4-10.2); Carbon Dioxide 23 mmol/L (22-29); Chloride 109 mmol/L (96-108); Cholesterol 163 mg/dL (<200); Estimated Glomerular Filt Rate 42; Glucose Random 86 mg/dL (60-115); HDL Cholesterol 44 mg/dL (>40); Iron 42 mcg/dL (30-160); Percent Iron Saturation 13 % (15-50); Potassium 4.8 mmol/L (3.3-5.1); Sodium 140 mmol/L (135-145); TSH reflex Free T4 2.03 uIU/mL (0.32-4.0); Total Iron Binding Capacity 319 mcg/dL (228-428); Total Protein 7.6 g/dL (6.5-8.0); Unsaturated Iron Binding 277 ug/dL
[2024-08-08 12:55] LABS: LDL Cholesterol Calculated 77 mg/dL (<100); Triglycerides 212 mg/dL (<150)
== END 2024-08-08 08:05 | disposition home or self-care (01) ==
LOC: HO.WFDLDS 08:04
PROVIDERS: Visit Provider Physician Assistant Medical
DX: E66.09 Other obesity due to excess calories (principal); Z68.33 Body mass index [BMI] 33.0-33.9, adult; D50.9 Iron deficiency anemia, unspecified; E78.5 Hyperlipidemia, unspecified; N18.31 Chronic kidney disease, stage 3a; I15.0 Renovascular hypertension; E66.9 Obesity, unspecified
CPT/HCPCS: 36415; 80053; 80061; 83540; 84443; 85027

== ENCOUNTER 2024-08-23 09:06 | Outpatient (AMB) | payer MEDICARE, SELFPAY ==
[2024-08-23 09:09] VITALS: BP 160/60; PULSE 84; RESP 12; O2SAT 98; BMI 29.7
--- NOTE | 2024-08-23 09:09 | MHC.PC.OV ---
Vital Signs 08/23/24 09:09 08/23/24 09:15 Height 5 ft 4 in Weight 173 lb BMI 29.7 BP 160/60 H 191/81 H Blood Pressure Location Lt brachial Lt brachial Position Sitting Sitting Respiration 12 Pulse 84 84 Pulse Source Pulse Oximeter Pulse Oximeter Pulse Oximetry (%) 98 Oxygen Delivery Method Room Air Intake Visit Reasons: review labs/med follow up Intake Note: Patient would like to discuss her blood pressures at home vs in the medical office. Patient's second BP today was with her own monitor. Sloop Captain Required: No Accompanied by: Self / Same As Patient Allergies iodine Allergy (Intermediate, Verified 08/23/24 09:17) Rash sulfadiazine Allergy (Intermediate, Verified 08/23/24 09:17) Rash rosuvastatin Adverse Reaction (Mild, Verified 08/23/24 09:17) Nausea doxazosin Allergy (Unknown, Uncoded 08/23/24 09:17) Unknown zetia Allergy (Unknown, Uncoded 08/23/24 09:17) Unknown amlodipine Adverse Reaction (Mild, Uncoded 08/23/24 09:17) Abdominal Pain chlorthalidone Adverse Reaction (Mild, Uncoded 08/23/24 09:17) Abdominal Pain Tobacco use date assessed: 05/29/24 Dental Screening Dental Screen Date: 05/29/24 HPI HPI Comments History of Present Illness Details This is a 69-year-old female with a past medical history of severe aortoiliac occlusive disease, renovascular hypertension, episode of kidney failure, iron deficiency anemia, aortic stenosis, coronary artery stenosis, IBS and GERD presenting for follow up. She underwent aortic endarterectomy and aortobifemoral bypass with reimplantation of her left renal artery 04/06/2023. Her postoperative course was complicated by an infected seroma of her thoracoabdominal incision which was evacuated on 04/29/2023. She is followed by Dr. Jenkins. She will see Alma Fajardo NP next week to review her ultrasounds that she will have done tomorrow. She is followed by Dr. Lund. She had a negative nuclear stress test prior to her surgery last year. She did not tolerate rosuvastatin and atorvastatin. She takes 40 mg of simvastatin. We discussed starting a PCSK9 inhibitor, but she deferred it due to the cost. It was 400 dollars despite insurance coverage. Patient saw the dietitian since our last visit. She stopped eating ice cream every night. She eats out bread now and oatmeal every morning. LDL decreased to 77 with a goal of less than 70. She continues on oral iron supplementation for anemia. H&H 02/18 10 and 32 per external labs, H&H relatively stable now at 9.5 and 29.7. Patient was referred to Heme[facility]Onc at [facility], and they told her she does not need to be seen unless she is not tolerating oral iron or it is ineffective. She is followed by Dr. Martinez for hypertension and CKD stage IIIA. She takes hydralazine to 25 mg 3 times a day her blood pressure is much better. She has a component of office hypertension. This is well documented. She brought her cuff from home today which is accurate against our cuff. She brought a list of recent home readings: This morning at 08:30 her blood pressure was 111/60. Despite elevated blood pressure in the office she has no symptoms today. 07/02/2024 125/55 07/16/2024 99/49, 115/60 07/23/2024 136/61 07/27/2024 126/64 08/04/2024 128/58 08/10/2024 139/60 08/13/2024 122/53, 150/56 08/19/2024 127/56 ROS: Constitutional: No unexplained weight loss, fever, chills, fatigue or night sweats. Respiratory: No shortness of breath Cardiovascular: No chest pain Gastrointestinal: No abdominal pain, nausea, vomiting or diarrhea. Neurologic: No headache, dizziness, syncope Constitutional: Alert, in no distress. Head: Normocephalic. Neck: Supple, Full range of motion. No lymphadenopathy Respiratory: Clear to auscultation. Cardiovascular: S1 S2 regular. + systolic murmur. Abdomen: Soft, nontender. No palpable masses. Neurologic: No focal neurological deficits. Extremities: Warm and well perfused. 1+ bilateral ankle edema. Psychiatric: Normal mood and affect [facility] Medical History (Updated 08/23/24 @ 13:54 by JACOB Alex) Obesity with serious comorbidity Bilateral knee pain Bilateral hand pain History of acute renal failure IBS (irritable bowel syndrome) Aortic stenosis IDALMIS (iron deficiency anemia) Hyperlipidemia LDL goal <70 History of Helicobacter pylori infection CKD stage 3a, GFR 45-59 ml/min GERD (gastroesophageal reflux disease) Carotid artery stenosis Renovascular hypertension PAD (peripheral artery disease) Acute blood loss anemia Abdominal aortic aneurysm (AAA) Surgical History (Updated 05/28/24 @ 13:54 by JACOB Alex) H/O vascular surgery H/O section H/O sinus surgery History of appendectomy History of cholecystectomy Family History (Updated 05/29/24 @ 10:18 by Marie Jim CMA) Mother Cancer Heart disease Hyperlipidemia Hypertension Father Hypertension TIA (transient ischemic attack) Sister Heart disease Hypertension Maternal Grandmother Diabetes mellitus Maternal Grandfather Diabetes mellitus Paternal Grandmother Diabetes mellitus Paternal Grandfather Diabetes mellitus Social History (Updated 05/29/24 @ 10:17 by Marie Jim CMA) [facility] Tobacco Use Status: Former Tobacco user Tobacco use type: Cigarette Cigarette Packs Per Day: 0.5 Years Smoked: 30 e-Cigarette/Vaping Use: Never Used Second Hand Smoke Exposure: No service: No Current occupational status: retired Cognitive needs: No Hearing needs: No Vision needs: No Questionnaire Thrive Questionnaire Date Thrive assessed: 05/29/24 SAPPHIRE-7 AMB Questionnaire SAPPHIRE-7 Date SAPPHIRE - 7 assessed: 05/29/24 Source: Developed by Drs. Kane Carreon, Stephanie Shea, Jarrett Glover and colleagues, with an educational laurel from [employer]. Physical exam (Primary Care) Vital Signs: Last Vital Signs Pulse 84 08/23/24 09:15 Resp 12 08/23/24 09:09 BP 191/81 H 08/23/24 09:15 Pulse Ox 98 08/23/24 09:09 Oxygen Delivery Method Room Air 08/23/24 09:09 BMI result Body Mass Index 29.7 Tobacco/Smoking Status: Tobacco use Status Tobacco use date assessed 05/29/24 08/23/24 09:18 Patient Tobacco Use Status Former Tobacco user 08/23/24 09:18 Tobacco use type Cigarette 08/23/24 09:18 e-Cigarette/Vaping Use Never Used 08/23/24 09:18 Thrive Assessment: Date of Thrive Assessment Date Thrive assessed 05/29/24 08/23/24 09:18 Assessment and Plan Assessment & Plan (1) PAD (peripheral artery disease): Code(s): I73.9 - Peripheral vascular disease, unspecified Plan: Followed closely by vascular surgery. Continue modification of risk factors. Former smoker. Patient did not tolerate atorvastatin, rosuvastatin. Currently on simvastatin and LDL is near goal after she implemented lifestyle modifications. Repatha covered by insurance, but her co-pay was very high. Continue simvastatin. We will repeat lipid profile prior to next appointment. (2) Renovascular hypertension: Code(s): I15.0 - Renovascular hypertension Plan: Interval improvement. Continue hydralazine 25 mg 3 times daily. We discussed adding back a low-dose of hydrochlorothiazide if home readings increase. Continue follow up with Nephrology. (3) CKD stage 3a, GFR 45-59 ml/min: Code(s): N18.31 - Chronic kidney disease, stage 3a Plan: Follow up with Nephrology as planned. Continue avoidance of nephrotoxic medications. (4) Hyperlipidemia LDL goal <70: Code(s): E78.5 - Hyperlipidemia, unspecified Plan: Congratulated patient in reduction of LDL cholesterol. Continue lifestyle modifications. We discussed her diet a bit further and some other changes she can make to help lower her cholesterol. See notes above regarding PAD. Continue statin at this time. Plan Follow up in 6 months. Orders: Orders Basic Metabolic Panel 6 Months D50.9 - Iron deficiency anemia, unspecified, E78.5 - Hyperlipidemia, unspecified, N18.31 - Chronic kidney disease, stage 3a Complete Blood Count Auto Diff 6 Months D50.9 - Iron deficiency anemia, unspecified, E78.5 - Hyperlipidemia, unspecified, N18.31 - Chronic kidney disease, stage 3a IRON PROFILE 6 Months D50.9 - Iron deficiency anemia, unspecified, E78.5 - Hyperlipidemia, unspecified, N18.31 - Chronic kidney disease, stage 3a Lipid Panel 6 Months D50.9 - Iron deficiency anemia, unspecified, E78.5 - Hyperlipidemia, unspecified, N18.31 - Chronic kidney disease, stage 3a Medications: New simvastatin 40 mg PO BEDTIME 90 tabs 3RF Changed From hydralazine 25 mg PO TID To hydralazine 25 mg PO TID 90 days 270 tabs 3RF From ferrous gluconate 324 mg PO DAILY To ferrous gluconate 324 mg PO DAILY 90 days 90 tabs 3RF Coding Level of Care Code Est Pt Level 4 (55029) Complex EM visit Add On G2211 Diagnoses PAD (peripheral artery disease) I73.9 Renovascular hypertension I15.0 CKD stage 3a, GFR 45-59 ml/min N18.31 Hyperlipidemia LDL goal <70 E78.5
[2024-08-23 09:15] VITALS: BP 191/81; PULSE 84
== END 2024-08-23 09:52 | disposition home or self-care (01) ==
PROVIDERS: PCP Physician Assistant Medical; Visit Provider Physician Assistant Medical
DX: I73.9 Peripheral vascular disease, unspecified (principal); I15.0 Renovascular hypertension; N18.31 Chronic kidney disease, stage 3a; E78.5 Hyperlipidemia, unspecified

== ENCOUNTER → 2024-08-23 09:06 | Outpatient (BNVA) | payer MEDICARE, SELFPAY | PROVIDERS: PCP Physician Assistant Medical; Visit Provider Physician Assistant Medical | DX: I73.9 Peripheral vascular disease, unspecified (principal); I15.0 Renovascular hypertension; N18.31 Chronic kidney disease, stage 3a; E78.5 Hyperlipidemia, unspecified; D50.9 Iron deficiency anemia, unspecified; Z79.899 Other long term (current) drug therapy | CPT/HCPCS: 99212 ==

== ENCOUNTER 2025-02-12 08:09 | Outpatient (REF) | payer MEDICARE, SELFPAY ==
[2025-02-12 11:20] LABS: MANUAL DIFF FLAG NO
[2025-02-12 11:28] LABS: Basophils Absolute Auto 0.1 X10*3/uL (0.0-0.2); Basophils Percent Auto 1.3 % (0-2); Eosinophils Absolute Auto 0.3 X10*3/uL (0.0-0.4); Hematocrit 26.2 % (37.0-47.0); Hemoglobin 8.1 g/dl (12.0-16.0); Imm Gran Abs Auto 0.01 X10*3/uL (0.00-0.03); Imm Gran Pct Auto 0.2 % (0.0-0.4); Lymphocytes Absolute Auto 1.4 X10*3/uL (1.2-4.9); Mean Corpuscular HGB Conc 30.9 g/dl (31.0-35.0); Mean Corpuscular Hemoglobin 27.8 pg (27.0-33.0); Mean Platelet Volume 9.8 fL (9.4-12.3); Monocytes Absolute Auto 0.5 X10*3/uL (0.1-1.2); Monocytes Percent Auto 9.3 % (2-11); Neutrophils Absolute Auto 3.1 x10*3/uL (2.0-8.3); Neutrophils Percent Auto 58.2 % (45-73); Platelet Count 268 X10*3/uL (160-400); Red Blood Count 2.91 X10*6/uL (4.20-5.50); Red Cell Distribution Width 13.9 % (11.0-16.0); White Blood Count 5.4 X10*3/uL (4.8-10.8)
[2025-02-12 11:35] LABS: Anion Gap 12 (12-20); Blood Urea Nitrogen 28 mg/dL (9-16); Calcium 9.2 mg/dL (8.4-10.2); Carbon Dioxide 23 mmol/L (22-29); Chloride 110 mmol/L (96-108); Cholesterol 158 mg/dL (<200); Estimated Glomerular Filt Rate 55; Glucose Random 89 mg/dL (60-115); HDL Cholesterol 43 mg/dL (>40); Iron 36 mcg/dL (30-160); LDL Cholesterol Calculated 84 mg/dL (<100); Percent Iron Saturation 10 % (15-50); Potassium 4.5 mmol/L (3.3-5.1); Sodium 140 mmol/L (135-145); Total Iron Binding Capacity 343 mcg/dL (228-428); Triglycerides 155 mg/dL (<150); Unsaturated Iron Binding 307 ug/dL
== END 2025-02-12 08:10 | disposition home or self-care (01) ==
LOC: HO.WFDLDS 08:09
PROVIDERS: Visit Provider Physician Assistant Medical
DX: D50.9 Iron deficiency anemia, unspecified (principal); E78.5 Hyperlipidemia, unspecified; N18.31 Chronic kidney disease, stage 3a
CPT/HCPCS: 36415; 80048; 80061; 83540; 85025

== ENCOUNTER 2025-02-18 08:54 | Outpatient (AMB) | payer MEDICARE, SELFPAY ==
--- NOTE | 2025-02-18 09:03 | A.OFFPC_ITS ---
Vital Signs 02/18/25 09:09 Height 5 ft 4 in BP 138/62 Blood Pressure Location Lt brachial Position Sitting Respiration 14 Pulse 73 Pulse Source Pulse Oximeter Pulse Oximetry (%) 100 Oxygen Delivery Method Room Air Intake Visit Reasons: med review/follow up Intake Note: Medication follow up. Battery Container Tester Required: No Allergies iodine Allergy (Intermediate, Verified 02/18/25 09:05) Rash sulfadiazine Allergy (Intermediate, Verified 02/18/25 09:05) Rash rosuvastatin Adverse Reaction (Mild, Verified 02/18/25 09:05) Nausea doxazosin Allergy (Unknown, Uncoded 02/18/25 09:05) Unknown zetia Allergy (Unknown, Uncoded 02/18/25 09:05) Unknown amlodipine Adverse Reaction (Mild, Uncoded 02/18/25 09:05) Abdominal Pain chlorthalidone Adverse Reaction (Mild, Uncoded 02/18/25 09:05) Abdominal Pain Tobacco use date assessed: 02/18/25 Fall risk assessment: No Falls in past year Last assessed Fall Risk: 02/18/25 Dental Screening Dental Screen Date: 05/29/24 HPI HPI Comments History of Present Illness Details This is a 70-year-old female with a past medical history of severe aortoiliac occlusive disease, renovascular hypertension, iron deficiency anemia, aortic stenosis, coronary artery stenosis, IBS and GERD presenting for follow up. She underwent aortic endarterectomy and aortobifemoral bypass with reimplantation of her left renal artery 04/06/2023. Her postoperative course was complicated by an infected seroma of her thoracoabdominal incision which was evacuated on 04/29/2023. She is followed by Dr. Jenkins. She has a follow up scheduled in February and has ultrasounds scheduled. They are monitoring left JUNG, but patient says there is no plan for surgical intervention at this time. She is followed by Dr. Lund. She had a negative nuclear stress test prior to her surgery. She did not tolerate rosuvastatin and atorvastatin. She takes 40 mg of simvastatin. We discussed starting a PCSK9 inhibitor, but she deferred it due to the cost. It was 400 dollars despite insurance coverage. Patient saw a dietitian recently. She stopped eating ice cream every night. She eats out bread now and oatmeal every morning. LDL is 84 with a goal of less than 70. She is having an echo in June for her fatback trimmer. She continues on oral iron supplementation for anemia, and she has been taking it every other day. RBC 2.91, hemoglobin 8.1, hematocrit 26.2 down from 3.21, 9.5 and 29.7 in 08/17/2024. Patient said she had blood work done for her mandrel press hand in November, and she recalls that her numbers were a little bit higher at that time compared to today. Denies shortness of breath, dizziness, unexplained bruising or blood loss. Patient was referred to Heme-Onc at [facility], and they told us she does not need to be seen unless she is not tolerating oral iron or it is ineffective. She is on Nexium daily which can decrease iron absorption. She is followed by Dr. Martinez for hypertension and CKD stage IIIA. She takes hydralazine to 25 mg 3 times a day her blood pressure is much better. She has a component of office hypertension. This is well documented. She brought a list of recent home readings: 12/17/2024 115/58 01/08/2025 154/67 01/18/2025 127/55 01/24/2025 127/59 01/30/2025 127/58 02/10/2025 132/52 02/18/2025 113/54 She had the flu vaccine in August, and she will request pneumonia vaccine from the pharmacy. ROS: Constitutional: No unexplained weight loss, fever, chills, fatigue or night sweats. Respiratory: No shortness of breath Cardiovascular: No chest pain Gastrointestinal: No abdominal pain, nausea, vomiting or diarrhea. Denies blood in stools. Neurologic: No headache, dizziness, syncope Constitutional: Alert, in no distress. Head: Normocephalic. Neck: Supple, Full range of motion. No lymphadenopathy Respiratory: Clear to auscultation. Cardiovascular: S1 S2 regular. III/ systolic murmur. Abdomen: Soft, nontender. No palpable masses. Neurologic: No focal neurological deficits. Extremities: Warm and well perfused. 1+ bilateral ankle edema. Psychiatric: Normal mood and affect [facility] Medical History (Updated 08/23/24 @ 13:54 by JACOB Alex) Obesity with serious comorbidity Bilateral knee pain Bilateral hand pain History of acute renal failure IBS (irritable bowel syndrome) Aortic stenosis IDALMIS (iron deficiency anemia) Hyperlipidemia LDL goal <70 History of Helicobacter pylori infection CKD stage 3a, GFR 45-59 ml/min GERD (gastroesophageal reflux disease) Carotid artery stenosis Renovascular hypertension PAD (peripheral artery disease) Acute blood loss anemia Abdominal aortic aneurysm (AAA) Surgical History (Updated 05/28/24 @ 13:54 by JACOB Alex) H/O vascular surgery H/O section H/O sinus surgery History of appendectomy History of cholecystectomy Family History (Updated 05/29/24 @ 10:18 by Marie Jim CMA) Mother Cancer Heart disease Hyperlipidemia Hypertension Father Hypertension TIA (transient ischemic attack) Sister Heart disease Hypertension Maternal Grandmother Diabetes mellitus Maternal Grandfather Diabetes mellitus Paternal Grandmother Diabetes mellitus Paternal Grandfather Diabetes mellitus Social History (Updated 05/29/24 @ 10:17 by Marie Jim CMA) [facility] Patient Tobacco Use Status: Former Tobacco user Tobacco use type: Cigarette Cigarette Packs Per Day: 0.5 Years Smoked: 30 e-Cigarette/Vaping Use: Never Used Second Hand Smoke Exposure: No service: No Current occupational status: retired Cognitive needs: No Hearing needs: No Vision needs: No Questionnaire PHQ-9 Over the last 2 weeks, how often have you been bothered by any of the following problems? 1. Little interest or pleasure in doing things: not at all 2. Feeling down, depressed, or hopeless: not at all 3. Trouble falling or staying asleep, or sleeping too much: not at all 4. Feeling tired or having little energy: not at all 5. Poor appetite or overeating: not at all 6. Feeling bad about yourself - or that you are a failure or have let yourself or your family down: not at all 7. Trouble concentrating on things, such as reading the newspaper or watching television: not at all 8. Moving or speaking so slowly that other people could have noticed. Or the opposite - being so fidgety or restless that you have been moving around a lot more than usual: not at all 9. Thoughts that you would be better off or of hurting yourself in some way: not at all Total score: 0 Depression Screening Interpretation: Negative Depression Screening Done: Yes Source: Developed by Drs. Kane Carreon, Stephanie B.WJarrett Samson and colleagues, with an educational laurel from [employer] Thrive Questionnaire Date Thrive assessed: 02/15/25 I am a: Patient What is your living situation today?: I have a steady place to live Within the past 12 months, did the food you bought not last and you didn't have the money to get more?: Never true Within the past 12 months, did you worry whether your food would run out before you got money to buy more?: Never true Do you have trouble paying for medicines?: No Do you have trouble getting transportation to medical appointments?: No Do you have trouble paying your heating and electricity bill?: No Do you have trouble taking care of your child, family member or friend?: No Do you have trouble with day-to-day activities such as bathing, preparing meals, shopping, managing finances, etc.?: No Are you currently unemployed and looking for a job?: No Are you interested in more education?: No Please select the resources that you would like help with: None Currently or been in a relationship where the following occur: No concerns reported THRIVE Score: 0 AUDIT C Alcohol Use Questionnaire (AUDIT-C) 1. How often do you have a drink containing alcohol?: Never Total Score: 0 SAPPHIRE-7 AMB Questionnaire SAPPHIRE-7 Date SAPPHIRE - 7 assessed: 05/29/24 Feeling nervous, anxious, or on edge: 0 = Not at all Not being able to stop or control worryin = Not at all Worrying too much about different things: 0 = Not at all Trouble relaxin = Not at all Being so restless that it is hard to sit still: 0 = Not at all Becoming easily annoyed or irritable: 0 = Not at all Feeling afraid as if something awful might happen: 0 = Not at all Total SAPPHIRE-7 score (0-4 normal; 5-9 mild; 10-14 moderate; 15-21 severe): 0 Source: Developed by Drs. Kane Carreon, Jarrett Daley and colleagues, with an educational laurel from [employer] Physical exam (Primary Care) Vital Signs: Last Vital Signs Pulse 73 02/18/25 09:09 Resp 14 02/18/25 09:09 BP 138/62 02/18/25 09:09 Pulse Ox 100 02/18/25 09:09 Oxygen Delivery Method Room Air 02/18/25 09:09 Tobacco/Smoking Status: Tobacco use Status Tobacco use date assessed 02/18/25 02/18/25 09:10 Patient Tobacco Use Status Former Tobacco user 02/18/25 09:04 Tobacco use type Cigarette 02/18/25 09:04 e-Cigarette/Vaping Use Never Used 02/18/25 09:04 PHQ-9: PHQ-9 Score PHQ-9: Total score 0 02/18/25 09:12 Depression Screening Interpretation: Negative Thrive Assessment: Date of Thrive Assessment Date Thrive assessed 02/15/25 02/18/25 09:04 Currently or been in a relationship where the following occur: No concerns reported Coding Level of Care Code Est Pt Level 4 (24342) Complex EM visit Add On G2211 Diagnoses PAD (peripheral artery disease) I73.9 Renovascular hypertension I15.0 GERD (gastroesophageal reflux disease) K21.9 CKD stage 3a, GFR 45-59 ml/min N18.31 Hyperlipidemia LDL goal <70 E78.5 IDALMIS (iron deficiency anemia) D50.9 Aortic stenosis I35.0 Assessment & Plan Assessment & Plan (1) PAD (peripheral artery disease): Code(s): I73.9 - Peripheral vascular disease, unspecified Category: Medical (2) Renovascular hypertension: Code(s): I15.0 - Renovascular hypertension Category: Medical (3) GERD (gastroesophageal reflux disease): Code(s): K21.9 - Gastro-esophageal reflux disease without esophagitis Category: Medical (4) CKD stage 3a, GFR 45-59 ml/min: Code(s): N18.31 - Chronic kidney disease, stage 3a Category: Medical (5) Hyperlipidemia LDL goal <70: Code(s): E78.5 - Hyperlipidemia, unspecified Category: Medical (6) IDALMIS (iron deficiency anemia): Code(s): D50.9 - Iron deficiency anemia, unspecified Category: Medical (7) Aortic stenosis: Code(s): I35.0 - Nonrheumatic aortic (valve) stenosis Category: Medical Plan The patient will continue her current medications. She has blood pressure that has been difficult to manage, but recently it has been reasonably well- controlled. Office hypertension is well documented. She is followed by Nephrology. Recent renal function tests have improved. She will continue routine follow up with Cardiology. She has an echocardiogram scheduled this summer for surveillance of aortic stenosis. She denies symptoms associated with this. Her LDL cholesterol remains above goal given peripheral arterial disease. See above notes regarding medications. At this time patient is electing to continue simvastatin 40 mg. I would like her to consider addition of Zetia. Recommended low-cholesterol diet. She has seen the dietitian. She denies symptoms associated with the anemia which is worsened. Patient and I reviewed symptoms warranting ER evaluation. Increase ferrous gluconate 324 mg to 1 pill daily. She is going to try taking it 1-2 hours after she eats and I recommended having something with vitamin-C to increase absorption. If this does not improve I will refer her back to hematology. She is on Nexium 20 mg a day which could impair iron absorption. She does have to stay on this however due to GERD. She will return for blood work in 1 month for anemia. She will schedule her routine follow up for 6 months and declined appointment in a month after labs are done. I will call her with the results. Orders: Orders Complete Blood Count Auto Diff 4 Weeks D50.9 - Iron deficiency anemia, unspecified IRON PROFILE 4 Weeks D50.9 - Iron deficiency anemia, unspecified Ferritin 4 Weeks D50.9 - Iron deficiency anemia, unspecified Vitamin B12 4 Weeks D50.9 - Iron deficiency anemia, unspecified, Z91.89 - Other specified personal risk factors, not elsewhere classified Medications: New fluticasone furoate 27.5 mcg/actuation (Flonase Sensimist) into each nostril 2 sprays intranasal DAILY 6.6 mL 5RF
[2025-02-18 09:09] VITALS: BP 138/62; PULSE 73; RESP 14; O2SAT 100
== END 2025-02-18 09:40 | disposition home or self-care (01) ==
LOC: HO.HMCFM 08:55
PROVIDERS: PCP Physician Assistant Medical; Visit Provider Physician Assistant Medical
DX: I12.9 Hypertensive chronic kidney disease with stage 1 through stage 4 chronic kidney disease, or unspecified chronic kidney disease (principal); I73.9 Peripheral vascular disease, unspecified; N18.31 Chronic kidney disease, stage 3a; K21.9 Gastro-esophageal reflux disease without esophagitis; E78.5 Hyperlipidemia, unspecified; D50.9 Iron deficiency anemia, unspecified; I35.0 Nonrheumatic aortic (valve) stenosis

== ENCOUNTER → 2025-02-18 08:54 | Outpatient (BNVA) | payer MEDICARE, SELFPAY | PROVIDERS: PCP Physician Assistant Medical; Visit Provider Physician Assistant Medical | DX: K21.9 Gastro-esophageal reflux disease without esophagitis (principal); D50.9 Iron deficiency anemia, unspecified; I15.0 Renovascular hypertension; I73.9 Peripheral vascular disease, unspecified; I35.0 Nonrheumatic aortic (valve) stenosis; N18.31 Chronic kidney disease, stage 3a; E78.5 Hyperlipidemia, unspecified; Z91.89 Other specified personal risk factors, not elsewhere classified | CPT/HCPCS: 96127; 99212 ==

== ENCOUNTER 2025-03-04 13:30 | Outpatient (AMB) | payer MEDICARE, SELFPAY ==
--- NOTE | 2025-03-04 13:38 | A.OFFPC_ITS ---
Vital Signs 03/04/25 13:46 Height 5 ft 4 in Weight 179 lb 6 oz BMI 30.8 BP 138/68 Blood Pressure Location Rt brachial Position Sitting Respiration 14 Pulse 71 Pulse Source Pulse Oximeter Temp 98.5 F Temp Source Oral Pulse Oximetry (%) 98 Oxygen Delivery Method Room Air Intake Visit Reasons: F/u [facility] /Urinary tract infection Intake Note: Anna presents in the office today for a follow up to seeing [facility] for a Urinary Tract Infection. Test came back negative for both the dip and culture. Patient is still having symptoms. Pressure prior to urinating. Does not feel as though she is finishing. Has been drinking cranberry juice regularly. Beauty Specialist Required: No Allergies iodine Allergy (Intermediate, Verified 03/04/25 13:43) Rash sulfadiazine Allergy (Intermediate, Verified 03/04/25 13:43) Rash rosuvastatin Adverse Reaction (Mild, Verified 03/04/25 13:43) Nausea doxazosin Allergy (Unknown, Uncoded 03/04/25 13:43) Unknown zetia Allergy (Unknown, Uncoded 03/04/25 13:43) Unknown amlodipine Adverse Reaction (Mild, Uncoded 03/04/25 13:43) Abdominal Pain chlorthalidone Adverse Reaction (Mild, Uncoded 03/04/25 13:43) Abdominal Pain Tobacco use date assessed: 03/04/25 Fall risk assessment: No Falls in past year Last assessed Fall Risk: 03/04/25 Dental Screening Dental Screen Date: 03/04/25 Did you have a dental visit in the last 12 months?: No Did you have a dental problem in the last 6 months where you did not have access to dental care?: Yes Was dental information given to patient?: Patient has dentist HPI HPI Comments History of Present Illness Details This is a 70-year-old female with a past medical history of severe aortoiliac occlusive disease, renovascular hypertension, iron deficiency anemia, aortic stenosis, coronary artery stenosis, IBS and GERD presenting for urinary issues. February 20 she woke up around 11pm with bladder pressure and urinary urgency and frequency. She went to the bathroom, but it still feel like she had to urinate. She thought she had a UTI. She drank a lot of cranberry juice and water. Symptoms improved but did not resolve. She was not able to get into the office so she went to [facility] urgent care. Patient says they did a urine dip and sent out the urine for culture, and she did not have a UTI. She then contacted the office for follow up. She continues to have intermittent, mild bladder discomfort described as pressure and urinary frequency/urgency and a feeling like she still has to urinate after she is done. She denies blood in her urine, flank pain, nausea, vomiting, abdominal pain, fevers, chills. No diarrhea or constipation. She has been drinking a lot more fluids, and she noticed that her lower legs and feet looked more swollen. Usually she just has swelling of her ankles which is chronic. No redness, shortness of breath , cough, chest pain or dizziness. Patient said she feels more bladder pressure when she is sitting and leaning forward. It resolves when she leans back or lays down on her back. No recent med changes other than dosing iron daily instead of every other day. She underwent aortic endarterectomy and aortobifemoral bypass with reimplantation of her left renal artery 04/06/2023. Her postoperative course was complicated by an infected seroma of her thoracoabdominal incision which was evacuated on 04/29/2023. She is followed by Dr. Jenkins. She has a follow up scheduled in February and has ultrasounds scheduled. They are monitoring left JUNG, but patient says there is no plan for surgical intervention at this time. She is followed by Dr. Lund. She had a negative nuclear stress test prior to her surgery. She did not tolerate rosuvastatin and atorvastatin. She takes 40 mg of simvastatin. We discussed starting a PCSK9 inhibitor, but she deferred it due to the cost. It was 400 dollars despite insurance coverage. Patient saw a dietitian recently. She stopped eating ice cream every night. She eats out bread now and oatmeal every morning. LDL is 84 with a goal of less than 70. 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 Patient is taking her iron tablet every day now since her last visit. RBC 2.91, hemoglobin 8.1, hematocrit 26.2 down from 3.21, 9.5 and 29.7 in 08/17/2024. Denies shortness of breath, dizziness, unexplained bruising or blood loss. Patient was referred to Heme-Onc at [facility], and they told us she does not need to be seen unless she is not tolerating oral iron or it is ineffective. She is on Nexium daily which can decrease iron absorption. She is followed by Dr. Martinez for hypertension and CKD stage IIIA. She takes hydralazine to 25 mg 3 times a day her blood pressure is much better. She has a component of office hypertension. This is well documented. ROS: Constitutional: No unexplained weight loss, fever, chills, fatigue or night sweats. Respiratory: No shortness of breath, cough or sputum production. Cardiovascular: No chest pain or palpitations. Gastrointestinal: No anorexia, nausea, vomiting or diarrhea. No abdominal pain or blood in stool. Genitourinary: No burning with urination or hematuria. No vaginal discharge or vaginal bleeding. See HPI. Neurologic: No headache, dizziness, syncope Hematologic/Lymphatics: No bleeding or bruising. No painful lymph nodes. Skin: No rash Constitutional: Alert, in no distress. Head: Normocephalic. Neck: Supple, Full range of motion. No lymphadenopathy Respiratory: Clear to auscultation in all rosenthal Cardiovascular: S1 S2 regular. III/ systolic murmur. Abdomen: Soft, nontender. No palpable masses. Bowel sounds normoactive in 4 quadrants. Genitourinary: No CVA tenderness Neurologic: No focal neurological deficits. Extremities: Warm and well perfused. 2+ bilateral edema of lower legs and feet. No erythema or tenderness. Symmetric peripheral pulses. Psychiatric: Normal mood and affect [facility] Medical History (Updated 03/04/25 @ 14:15 by JACOB Alex) Sensation of pressure in bladder area Urinary urgency Obesity with serious comorbidity Bilateral knee pain Bilateral hand pain History of acute renal failure IBS (irritable bowel syndrome) Aortic stenosis IDALMIS (iron deficiency anemia) Hyperlipidemia LDL goal <70 History of Helicobacter pylori infection CKD stage 3a, GFR 45-59 ml/min GERD (gastroesophageal reflux disease) Carotid artery stenosis Renovascular hypertension PAD (peripheral artery disease) Acute blood loss anemia Abdominal aortic aneurysm (AAA) Surgical History (Updated 05/28/24 @ 13:54 by JACOB Alex) H/O vascular surgery H/O section H/O sinus surgery History of appendectomy History of cholecystectomy Family History Mother Cancer Heart disease Hyperlipidemia Hypertension Father Hypertension TIA (transient ischemic attack) Sister Heart disease Hypertension Maternal Grandmother Diabetes mellitus Maternal Grandfather Diabetes mellitus Paternal Grandmother Diabetes mellitus Paternal Grandfather Diabetes mellitus Social History (Updated 03/04/25 @ 13:44 by Dania Child MA) Housing: Condominium Alcohol intake: former Patient Tobacco Use Status: Former Tobacco user Tobacco use type: Cigarette Cigarette Packs Per Day: 0.5 Years Smoked: 30 e-Cigarette/Vaping Use: Never Used Second Hand Smoke Exposure: No service: No Current occupational status: retired Current occupational exposures/hazards: No Cognitive needs: No Hearing needs: No Vision needs: No Questionnaire PHQ-9 Over the last 2 weeks, how often have you been bothered by any of the following problems? 1. Little interest or pleasure in doing things: not at all 2. Feeling down, depressed, or hopeless: not at all 3. Trouble falling or staying asleep, or sleeping too much: not at all 4. Feeling tired or having little energy: not at all 5. Poor appetite or overeating: not at all 6. Feeling bad about yourself - or that you are a failure or have let yourself or your family down: not at all 7. Trouble concentrating on things, such as reading the newspaper or watching television: not at all 8. Moving or speaking so slowly that other people could have noticed. Or the opposite - being so fidgety or restless that you have been moving around a lot more than usual: not at all 9. Thoughts that you would be better off or of hurting yourself in some way: not at all Total score: 0 Depression Screening Interpretation: Negative Depression Screening Done: Yes 23859 - PHQ-9 Billing: Patient declined-do not bill Source: Developed by Drs. Kane Carreon, Stephanie Shea, Jarrett Glover and colleagues, with an educational laurel from [employer]. Thrive Questionnaire Date Thrive assessed: 03/04/25 I am a: Patient What is your living situation today?: I have a steady place to live Within the past 12 months, did the food you bought not last and you didn't have the money to get more?: Never true Within the past 12 months, did you worry whether your food would run out before you got money to buy more?: Never true Do you have trouble paying for medicines?: No Do you have trouble getting transportation to medical appointments?: No Do you have trouble paying your heating and electricity bill?: No Do you have trouble taking care of your child, family member or friend?: No Do you have trouble with day-to-day activities such as bathing, preparing meals, shopping, managing finances, etc.?: No Are you currently unemployed and looking for a job?: No Are you interested in more education?: No Please select the resources that you would like help with: None Currently or been in a relationship where the following occur: No concerns reported THRIVE Score: 0 SAPPHIRE-7 AMB Questionnaire SAPPHIRE-7 Date SAPPHIRE - 7 assessed: 03/04/25 Feeling nervous, anxious, or on edge: 0 = Not at all Not being able to stop or control worryin = Not at all Worrying too much about different things: 0 = Not at all Trouble relaxin = Not at all Being so restless that it is hard to sit still: 0 = Not at all Becoming easily annoyed or irritable: 0 = Not at all Feeling afraid as if something awful might happen: 0 = Not at all Total SAPPHIRE-7 score (0-4 normal; 5-9 mild; 10-14 moderate; 15-21 severe): 0 Source: Developed by Drs. Kane Carreon, Stephanie Shea, Jarrett Glover and colleagues, with an educational laurel from [employer]. SAPPHIRE-7 Assessment Billing SAPPHIRE-7 Assessment Tool: SAPPHIRE-7 Assessment 95283 Physical exam (Primary Care) Vital Signs: Last Vital Signs Pulse 71 03/04/25 13:46 Resp 14 03/04/25 13:46 BP 138/68 03/04/25 13:46 Pulse Ox 98 03/04/25 13:46 Oxygen Delivery Method Room Air 03/04/25 13:46 BMI result Body Mass Index 30.8 Tobacco/Smoking Status: Tobacco use Status Tobacco use date assessed 03/04/25 03/04/25 13:45 Patient Tobacco Use Status Former Tobacco user 03/04/25 13:45 Tobacco use type Cigarette 03/04/25 13:45 e-Cigarette/Vaping Use Never Used 03/04/25 13:45 PHQ-9: PHQ-9 Score PHQ-9: Total score 0 03/04/25 13:51 Depression Screening Interpretation: Negative Thrive Assessment: Date of Thrive Assessment Date Thrive assessed 03/04/25 03/04/25 13:51 Currently or been in a relationship where the following occur: No concerns reported Coding Level of Care Code Est Pt Level 4 (78801) Complex EM visit Add On G2211 Diagnoses CKD stage 3a, GFR 45-59 ml/min N18.31 Urinary urgency R39.15 Sensation of pressure in bladder area R39.89 Additional Codes SAPPHIRE-7 Assessment Billing - SAPPHIRE-7 Assessment Tool: SAPPHIRE-7 Assessment 70223 ([id number]) Assessment & Plan Assessment & Plan (1) CKD stage 3a, GFR 45-59 ml/min: Code(s): N18.31 - Chronic kidney disease, stage 3a Category: Medical (2) Urinary urgency: Code(s): R39.15 - Urgency of urination Category: Medical (3) Sensation of pressure in bladder area: Code(s): R39.89 - Other symptoms and signs involving the genitourinary system Category: Medical Plan I am concerned she may be having some urinary retention though the reason for this is unclear. Urine dip is negative today. I will send it out for UA and culture to be cautious. She has had some increased lower extremity edema from baseline but no signs or symptoms of CHF. This is likely related to her increased fluid intake because of her bladder symptoms, but we also need to rule out YUNG. No protein on urine dip today. Patient advised to limit fluids for now to 2 L daily. Check renal function and CBC and hepatic function. We will order stat retroperitoneal ultrasound to rule out stones/obstruction and check postvoid residual volume of the bladder. May need urology consult. Patient advised to go to the ER if she is not able to urinate or if she develops worsening symptoms including worsening pain, fevers, chills, shortness of breath, chest pain, lethargy, confusion. She understands and agrees with the plan. Follow up based on results. Orders: Orders AMB Urinalysis Dipstick Today Z13.9 - Encounter for screening, unspecified UA w Microscopic Today R39.9 - Unspecified symptoms and signs involving the genitourinary system Complete Blood Count Auto Diff Today N18.31 - Chronic kidney disease, stage 3a US retroperitoneal comp Today R39.15 - Urgency of urination, R39.89 - Other symptoms and signs involving the genitourinary system Comprehensive Met. Panel Today R39.89 - Other symptoms and signs involving the genitourinary system Urine Culture Today R39.9 - Unspecified symptoms and signs involving the genitourinary system
[2025-03-04 13:46] VITALS: BP 138/68; PULSE 71; RESP 14; TEMP 36.9; O2SAT 98; BMI 30.8
--- OUTSIDE RECORDS SUMMARY | 2025-03-04 16:03 | XMS_ITS | Encounter Summary ---
Author Organization [facility], Address [address] [place] [address] Phone Care Team Providers Care Client Support Analyst Name Role Phone Cierra Rae PA-C Primary Care Provider [phone] Encounter Details Date Type Department Care Team (Late st Contact Info) Description 12/07/2022 Documentation Only [facility], [address] [place] [address] Damion Dalton [place] [address] [place] [address] Social History Tobacco Use Types Packs/Day Years Used Date Smoking Tobacco: Former Cigarettes Q uit: 10/30/2019 Comments:Smoking History Inf o:Every day Alcohol Use Standard Drinks/Week Comments Yes 0 (1 standard drink = 0.6 oz pure alcohol) Alcoholic Drinks/day: Occasional social drink Comments Unknown Sex and Gender Information Value Date Recorded Sex Assigned at Not on file Legal Sex Female 4:56 PM EST Gender Identity Not on file Sexual Orientation Not on file documented as of this encounter Plan of Treatment Upcoming Encounters Date Type Department Care Team (Late st Contact Info) Description 08/05/2025 9:40 AM EDT Office Visit [facility] [address] [address] Edenilson Dyer MD [address] [address] documented as of this encounter Visit Diagnoses Not on filedocumented in this encounter Care Teams Client Support Analyst Relationship Specialty Start Date End Date Cierra Rae PA-C [address] [place] [id number] PCP - General Internal Medicine 12/07/22 documented as of this encounter
--- OUTSIDE RECORDS SUMMARY | 2025-03-04 16:03 | XMS_ITS | Encounter Summary ---
Author Organization [facility], Address [address] [place] [address] Phone Care Team Providers Care Documentation Manager Name Role Phone Cierra Rae PA-C Primary Care Provider [phone] Encounter Details Date Type Department Care Team (Late st Contact Info) Description 12/07/2022 Documentation Only [facility], [address] [place] [address] Damion Dalton [place] [address] [place] [address] Social History Tobacco Use Types [...] Visit [facility] [address] [address] Edenilson Dyer MD [address] [address] documented as of this encounter Visit Diagnoses Not on filedocumented in this encounter Care Teams Documentation Manager Relationship Specialty Start Date End Date Cierra Rae PA-C [address] [place] [id number] PCP - General Internal Medicine 12/07/22 documented as of this encounter
--- OUTSIDE RECORDS SUMMARY | 2025-03-04 16:03 | XMS_ITS | Encounter Summary ---
Author Organization [facility], Address [address] [place] [address] Phone Care Team Providers Care Otr Truck Driver Name Role Phone Cierra Rae PA-C Primary Care Provider [phone] Encounter Details Date Type Department Care Team (Late st Contact Info) Description 12/07/2022 Documentation Only [facility], [address] [place] [address] Damion Dalton [place] [address] [place] [address] Social History Tobacco Use Types [...] Visit [facility] [address] [address] Edenilson Dyer MD [address] [address] documented as of this encounter Visit Diagnoses Not on filedocumented in this encounter Care Teams Otr Truck Driver Relationship Specialty Start Date End Date Cierra Rae PA-C [address] [place] [id number] PCP - General Internal Medicine 12/07/22 documented as of this encounter
--- OUTSIDE RECORDS SUMMARY | 2025-03-04 16:03 | XMS_ITS | Clinical Summary ---
Author Organization [facility] Address [address] [place] [address] Phone Care Team Providers Care Land Examiner Name Role Phone Cierra Rae PA-C Primary Care Provider [phone] Allergies Active Allergy Reactions Criticality Noted Date Comments Amlodipine 01/06/2023 Chlorthalidone 01/06/2023 Doxazosin Other (see comments) 03/15/2023 Incontinence, stomach cramps and headache Ezetimibe-Simvastatin Other (see comments) 01/10/2023 Iodinated Contrast Media Other (see comments) 01/10/2023 Iodine 01/06/2023 Rosuvastatin Other (see comments),Nausea 03/15/2023 Cramps and loss of appetite Sulfa Antibiotics 01/10/2023 Sulfadiazine 01/06/2023 Medications simvastatin (ZOCOR) 40 MG tablet Take 40 mg by mouth every night Active esomeprazole (NexIUM) [address] capsule Take 20 mg by mouth every morning Active cholecalciferol (VITAMIN D-3) 25 MCG (1000 UT) tablet Take 1 tablet by mouth every night Active IRON CR PO Take 234 mg by mouth every other day Active hydrALAZINE 25 MG tablet Take 1 tablet (25 mg total) by mouth in the morning and 1 tablet (25 mg total) in the evening. 180 tablet 3 4 Active Additional Information Patient taking differently:25 mg Oral3 times daily, Reported on 01/31/2025 aspirin (ST EVERARDO) 81 MG EC tablet Take 81 mg by mouth 1 (one) time each day Active cetirizine (ZyrTEC) 10 MG chewable tablet Chew 10 mg 1 (one) time each day Active Active Problems Problem Noted Date Diagnosed Date Hyperkalemia 06/14/2023 Abdominal aortic aneurysm 05/10/2023 Atrophy of right kidney 05/10/2023 Carotid artery stenosis 05/10/2023 Mild aortic valve stenosis 05/10/2023 Hypertension 01/09/2023 Dyslipidemia 01/09/2023 Hypokalemia 01/09/2023 Acute nontraumatic kidney injury 01/09/2023 Stage 3a chronic kidney disease 01/09/2023 Encounters Date Type Department Care Team Description 01/31/2025 10:20 AM EST Office Visit [facility] [address] [place] [phone] Edenilson Dyer MD Stage 3a chronic kidney disease (HCC) (Primary Dx); Hypokalemia; Hypertension; Hyperkalemia; Dyslipidemia; Atrophy of right kidney; Other acute kidney failure (HCC); Abdominal aortic aneurysm (HCC) 12/15/2024 Orders Only [facility] [address] [place] [id number] Edenilson Dyer MD Stage 3a chronic kidney disease (HCC); Hypokalemia; Hypertension; Hyperkalemia; Dyslipidemia; Atrophy of right kidney; Other acute kidney failure (HCC) from Last 3 Months Family History Medical History Relation Comments Hypertension Father Stroke Father Heart disease Mother Hypertension Mother Relation Status Comments Father Mother Social History Tobacco Use Types Packs/Day Years Used Date Smoking Tobacco: Former Cigarettes 0.5 16 1 12/31/2002 - 10/30/2019 Comments:Smoking History Inf o:Every day Alcohol Use Standard Drinks/Week Comments Yes 0 (1 standard drink = 0.6 oz pure alcohol) Alcoholic Drinks/day: Occasional social drink Comments Unknown Sex and Gender Information Value Date Recorded Sex Assigned at Not on file Legal Sex Female 4:56 PM EST Gender Identity Not on file Sexual Orientation Not on file Last Filed Vital Signs Vital Sign Reading Time Taken Comments Blood Pressure 134/88 01/31/2025 10:15 AM EST Pulse 74 01/31/2025 10:15 AM EST Temperature - - Respiratory Rate - - Oxygen Saturation 99% 01/31/2025 10:15 AM EST Inhaled Oxygen Concentration - - Weight 82.1 kg (181 lb) 01/31/2025 10:15 AM EST Height 154.9 cm (5' 1 ) 06/14/2024 10:10 AM EDT Body Mass Index 34.2 06/14/2024 10:10 AM EDT Plan of Treatment Upcoming Encounters Date Type Department Care Team (Late st Contact Info) Description 08/05/2025 9:40 AM EDT Office Visit [facility] [address] [address] Edenilson Dyer MD [address] [phone] Health Maintenance Due Date Last Done Comments Breast Cancer Screening 1955 Colorectal Cancer Screening: Annual FOBT 2003 Colorectal Cancer Screening: Colonoscopy 2003 Colorectal Cancer Screening: Sigmoidoscopy 2003 Pneumococcal Vaccine: 65+ Ye ars (2 of 2 - PCV) 01/08/2021 01/08/2020 Influenza Vaccine (Season Ended) 2025 Hepatitis B Vaccine Aged Out No longe r eligible based on patient's age to complete this topic Procedures Procedure Name Priority Date/Time Associated Diagnosis Comments PTH, INTACT Routine 12/11/2024 7:50 AM EST MAGNESIUM Routine 12/11/2024 7:50 AM EST PHOSPHATE ( PHOSPHORUS) Routine 12/11/2024 7:50 AM EST URIC ACID Routine 12/11/2024 7:50 AM EST VITAMIN D 25 HYDROXY Routine 12/11/2024 7:50 AM EST PROTEIN / CREATININE RATIO, URINE Routine 12/11/2024 7:50 AM EST LIPID PANEL Routine 12/11/2024 7:50 AM EST COMPREHENSIVE METABOLIC PANEL Routine 12/11/2024 7:50 AM EST CBC AND DIFFERENTIAL Routine 12/11/2024 7:50 AM EST from Last 3 Months Results * (ABNORMAL) Protein, Total, Random Urine w/Creatinine (Protein/Creat Ratio) (12/11/2024 7:50 AM EST) Creatinine, Ur 95.9 Not Estab. mg/dL [facility] Protein, Ur 23.2 Not Estab. mg/dL [facility] Urine Protein/Creati nine Ratio 242(H) 0 - 200 mg/g creat [facility] 12/11/2024 7:50 AM EST 12/11/2024 us Edenilson Dyer MD LAB URINE ORDERABLES Final Re sult [facility] [address] [place] [address] * Vitamin D 25 Hydroxy (12/11/2024 7:50 AM EST) Vitamin D, 25-OH, Total 34.8 30.0 - 100.0 ng/mL [facility] Comment: Vitamin D deficiency has been defined by the [place] of Medicine and an Endocrine Society practice guideline as a level of serum 25-OH vitamin D less than 20 ng/mL (1,2). The Endocrine Society went on to further define vitamin D insufficiency as a level between 21 and 29 ng/mL (2). 1. IOM ([place] of Medicine). 2010. Dietary reference ?? intakes for calcium and D. Kang [place]: The ?? National Academies Press. 2. Tameka MF, Corazon NC, Jonathan OLSON, et al. ?? Evaluation, treatment, and prevention of vitamin D ?? deficiency: an Endocrine Society clinical practice ?? guideline. JCEM. 2010; 96(7):1911-30. 12/11/2024 7:50 AM EST 12/11/2024 us Edenilson Dyer MD LAB BLOOD ORDERABLES Final Re sult [facility] [address] [place] [address] * (ABNORMAL) CBC and Differential (12/11/2024 7:50 AM EST) WBC 6.8 3.4 - 10.8 x10E3/uL [facility] RBC 3.09(L) 3.77 - 5.28 x10E6/uL [facility] Hemoglobin 9.1(L) 11.1 - 15.9 g/dL [facility] Hematocrit 28.2(L) 34.0 - 46.6 % [facility] MCV 91 79 - 97 fL [facility] MCH 29.4 26.6 - 33.0 pg [facility] MCHC 32.3 31.5 - 35.7 g/dL [facility] RDW 13.5 11.7 - 15.4 % [facility] Platelets 324 150 - 450 x10E3/uL [facility] Neutrophils Relative 60 Not Estab. % [facility] Lymphocytes Relative 24 Not Estab. % [facility] Monocytes 9 Not Estab. % [facility] Eosinophils Relative 5 Not Estab. % [facility] Basophils Relative 2 Not Estab. % [facility] Neutrophils Absolute 4.1 1.4 - 7.0 x10E3/uL [facility] Lymphocytes Absolute 1.6 0.7 - 3.1 x10E3/uL [facility] Monocytes Absolute 0.6 0.1 - 0.9 x10E3/uL [facility] Eosinophils Absolute 0.4 0.0 - 0.4 x10E3/uL [facility] Basophils Absolute 0.1 0.0 - 0.2 x10E3/uL [facility] Immature Granulocytes 0 Not Estab. % [facility] Immature Grans (Absolute) 0.0 0.0 - 0.1 x10E3/uL [facility] 12/11/2024 7:50 AM EST 12/11/2024 Edenilson Dyer MD LAB BLOOD ORDERABLES Final Re sult Performing Organization Address City/[facility]/ZIP Co de Phone Number [facility] [address] [place] [address] * (ABNORMAL) Uric Acid (12/11/2024 7:50 AM EST) Uric Acid 7.8(H) 3.0 - 7.2 mg/dL [facility] Comment:Therapeutic target f or gout patients: <6.0 12/11/2024 7:50 AM EST 12/11/2024 Edenilson Dyer MD LAB BLOOD ORDERABLES Final Re sult [facility] [address] [place] [address] * Phosphorus (12/11/2024 7:50 AM EST) Phosphorus 4.0 3.0 - 4.3 mg/dL [facility] 12/11/2024 7:50 AM EST 12/11/2024 Edenilson Dyer MD LAB BLOOD ORDERABLES Final Re sult Performing Organization Address City/[facility]/ZIP Co de Phone Number [facility] [address] [place] [address] * PTH, Intact (12/11/2024 7:50 AM EST) PTH 46 15 - 65 pg/mL [facility] 12/11/2024 7:50 AM EST 12/11/2024 Edenilson Dyer MD LAB BLOOD ORDERABLES Final Re sult Performing Organization Address City/[facility]/ZIP Co de Phone Number [facility] [address] [place] [address] * Magnesium (12/11/2024 7:50 AM EST) Pathologist [facility] Magnesium 2.1 1.6 - 2.3 mg/dL [facility] 12/11/2024 7:50 AM EST 12/11/2024 Edenilson Dyer MD LAB BLOOD ORDERABLES Final Re sult Performing Organization Address City/[facility]/ZIP Co de Phone Number [facility] [address] [place] [address] * (ABNORMAL) Lipid panel (12/11/2024 7:50 AM EST) Cholesterol 169 100 - 199 mg/dL [facility] Triglycerides 151(H) 0 - 149 mg/dL [facility] HDL 48 >39 mg/dL [facility] VLDL Cholesterol Audi 26 5 - 40 mg/dL [facility] LDL Calculated 95 0 - 99 mg/dL [facility] 12/11/2024 7:50 AM EST 12/11/2024 us Edenilson Dyer MD LAB BLOOD ORDERABLES Final Re sult [facility] [address] [place] [address] * (ABNORMAL) Comprehensive Metabolic Panel (12/11/2024 7:50 AM EST) Pathologist [facility] Glucose 92 70 - 99 mg/dL [facility] Bicarbonate (CO2) 21 20 - 29 mmol/L [facility] Calcium 9.7 8.7 - 10.3 mg/dL [facility] Total Bilirubin <0.2 0.0 - 1.2 mg/dL [facility] AST (SGOT) 19 0 - 40 IU/L [facility] BUN 25 8 - 27 mg/dL [facility] Creatinine 1.08(H) 0.57 - 1.00 mg/dL [facility] eGFR CKD-EPI CR 2020 55(L) >59 mL/min/1.7 3 [facility] BUN/Creatinine Ratio 23 12 - 28 [facility] Sodium 139 134 - 144 mmol/L [facility] Potassium 4.9 3.5 - 5.2 mmol/L [facility] Chloride 103 96 - 106 mmol/L [facility] Total Protein 7.2 6.0 - 8.5 g/dL [facility] Albumin 4.4 3.9 - 4.9 g/dL [facility] Globulin 2.8 1.5 - 4.5 g/dL [facility] Alkaline Phosphatase 80 44 - 121 IU/L [facility] ALT (SGPT) 18 0 - 32 IU/L [facility] 12/11/2024 7:50 AM EST 12/11/2024 us Edenilson Dyer MD LAB BLOOD ORDERABLES Final Re sult [facility] [address] [place] [address] from Last 3 Months Insurance MEDICARE [facility] MEDICARE [facility] Care Teams Land Examiner Relationship Specialty Start Date End Date Cierra Rae PA-C [address] [place] [phone] PCP - General Internal Medicine 12/07/22
--- OUTSIDE RECORDS SUMMARY | 2025-03-04 16:03 | XMS_ITS | Clinical Summary ---
Author Organization [facility] Address [address] [place] [address] Care Team Providers Care Retention Representative Name Role Phone Milagros Mcdonald MD Primary Care Provider [phone] Allergies Active Allergy Reactions Criticality Noted Date Comments Ezetimibe-Simvastatin 02/26/2016 Myalgia Iodinated Contrast Media 02/01/2025 Contrast Dye [Iv Contrast Dye] Rash Iodine 02/12/2016 Other Reaction(s): Rash/Dermatitis Sulfa (Sulfonamide Antibiotics) 02/12/2016 Other Reaction(s): Hives/Urticaria Medications hydrALAZINE (APRESOLINE) 25 mg tablet Take 1 Tablet by mouth 3 times daily. 08/07/2024 Active aspirin 81 mg EC tablet Take 1 Tablet by mouth daily. Active ferrous gluconate (FERGON) 324 mg (37.5 mg iron) tablet Take 1 Tablet by mouth daily. Active esomeprazole (NexIUM) [address] capsule Take 1 Capsule by mouth every morning (before breakfast). Active simvastatin (ZOCOR) 40 mg tablet TAKE 1 TABLET BY MOUTH AT BEDTIME 07/17/2019 Active loratadine (CLARITIN) 10 mg tablet Take 1 Tab by mouth daily. 02/12/2016 Active cholecalciferol (VITAMIN D-3) 25 mcg (1,000 unit) capsule Take 1 Cap by mouth daily. 02/12/2016 Active Active Problems Problem Noted Date Diagnosed Date Allergic rhinitis 02/01/2025 Aortic stenosis 02/01/2025 Overview (02/01/2025): Last Assessment & Plan: Patient with a history of mild aortic stenosis. Will plan on repeating echocardiogram in 1 year to reassess. Generalized osteoarthritis 02/01/2025 Overview (02/01/2025): Dr. Negro GERD (gastroesophageal reflux disease) HTN (hypertension) 02/01/2025 Overview (02/01/2025): Last Assessment & Plan: Patient's blood pressure is elevated she states that she has a component of whitecoat syndrome. I discussed possibly adding additional medical therapy for hypertension she is scheduled to be seen by primary care the beginning of the week if her pressure still high would recommend increasing hydralazine to 50 mg 3 times daily. Patient has had side effects from amlodipine in the past and with her renal insufficiency JEAN CLAUDE ARB and Entresto are not options Hypercholesteremia 02/01/2025 Overview (02/01/2025): Last Assessment & Plan: Patient with significant hyperlipidemia and known peripheral vascular disease. LDL cholesterol is gone up. She states that she has been seen by primary care who would recommend decreasing dose of statin Microscopic hematuria 02/01/2025 Overview (02/01/2025): Worked up by Dr. Michel Bilateral carotid bruits 01/24/2023 Overview (02/01/2025): Last Assessment & Plan: Patient with bilateral carotid bruits may attribute the radiated aortic murmur but [facility] for carotid duplex scan Dyspnea 01/24/2023 Overview (02/01/2025): Last Assessment & Plan: Patient has significant dyspnea most likely due to anemia which may be secondary to renal insufficiency patient is also recently quit smoking LVH (left ventricular hypertrophy) 11/13/2019 Overview (02/01/2025): Last Assessment & Plan: Significant LV hypertrophy due to poorly controlled blood pressure Diastolic dysfunction 06/15/2016 Overview (02/01/2025): Last Assessment & Plan: Mild diastolic dysfunction no evidence of volume overload on exam Iron deficiency anemia 02/26/2016 Osteopenia 02/26/2016 Peptic ulcer 02/26/2016 Vitamin D deficiency 02/26/2016 IFG (impaired fasting glucose) 02/13/2016 Immunizations Name Administration Dates Next Due Influenza trivalent, 0.5mL, preservative free (Fluarix; FluLaval; Fluzone) ages 6mo and older (Afluria) 3 years and older 08/28/2017,11/29/2016 Pneumococcal polysaccharide 23 valent (Pneumovax 23) 2yo and older 05/15/2013 Tdap Tetanus diptheria acell ular pertussis (Boostrix; Adacel) 7yo and older 03/22/2012 Surgical History Surgery Date Site/Laterality Comments SECTION 1975,1977 PROCEDURE: HISTORICAL DELIVERY; COMMENT: x 2 CHOLECYSTECTOMY 1982 PROCEDURE: [place] CHOLECYSTECTOMY APPENDECTOMY 1982 PROCEDURE: HISTORICAL APPENDECTOMY TONSILLECTOMY ? PROCEDURE: HISTORICAL TONSILLECTOMY OTHER SURGICAL HISTORY ? PROCEDURE: [place] SINUSOT SPHENOID W/MUCOSAL STRIPPING/RMVL POLYP Medical History Medical History Date Comments HTN (hypertension) DX:HTN (hyper tension) Hypercholesteremia DX:Hyperchole steremia GERD (gastroesophageal reflux disease) DX:GERD (gastroesophageal reflux disease) Allergic rhinitis DX:Allergic rh initis; COMMENT: Dr. Crawford Microscopic hematuria DX:Microsc opic hematuria; COMMENT: Worked up by Dr. Michel 2002 negative per pt Heart murmur DX:Heart murmur Acute H. pylori gastric ulcer DX :Acute H. pylori gastric ulcer Generalized osteoarthritis DX:Ge neralized osteoarthritis; COMMENT: Dr. Negro Tobacco use DX:Tobacco use IFG (impaired fasting glucose) 02/13/2016 D X:IFG (impaired fasting glucose) Osteopenia 02/26/2016 DX:Osteopenia Iron deficiency anemia 02/26/2016 DX:Iron d eficiency anemia Vitamin D deficiency 02/26/2016 DX:Vitamin D deficiency Peptic ulcer 02/26/2016 DX:Peptic ulcer Superficial midline glossitis 03/17/2016 DX :Superficial midline glossitis Family History Medical History Relation Name Comments Hypertension Brother 1 Stroke Father suicide complet ion Arthritis Mother hx RA Coronary artery disease Mother HTN Heart attack Mother Lung cancer Mother Arthritis Paternal Grandmother Hypertension Sister 1 Relation Name Status Comments Brother 1 Brother 2 Alive Daughter Alive healthy Father htn, arthritis, alcoholism Maternal Grandfather Maternal Grandmother Mother Alive htn, [place], arthir itis Paternal Grandfather Paternal Grandmother Sister 1 Sister 2 Alive htn Son 1 Alive healthy Son 2 Alive healthy Social History Tobacco Use Types Packs/Day Years Used Date Smoking Tobacco: Former Cigarettes Q uit: 10/30/2019 Smokeless Tobacco: Never Alcohol Use Standard Drinks/Week Comments Not Currently 0 (1 standard drink = 0.6 oz pur e alcohol) Comments Unknown Sex and Gender Information Value Date Recorded Sex Assigned at Not on file Legal Sex Female 2:44 PM EST Gender Identity Not on file Sexual Orientation Not on file Obstetrics History Last Filed Vital Signs Vital Sign Reading Time Taken Comments Blood Pressure 170/68 08/07/2024 11:30 AM EDT Si tting L Arm Pulse 70 08/07/2024 10:49 AM EDT Temperature - - Respiratory Rate - - Oxygen Saturation - - Inhaled Oxygen Concentration - - Weight 78.5 kg (173 lb) 08/07/2024 10:49 AM EDT Height 149.9 cm (4' 11 ) 08/07/2024 10:49 AM EDT Body Mass Index 34.94 08/07/2024 10:49 AM EDT Plan of Treatment Upcoming Encounters Date Type Department Care Team (Late st Contact Info) Description 07/30/2025 8:00 AM EDT Ancillary Procedure [facility] [address] [place] [address] Health Maintenance Due Date Last Done Comments Breast Cancer Screening 1955 Zoster Vaccines (1 of 2) 2004 Pneumococcal Vaccine: 50+ Years (2 of 2 - PCV) 05/15/2014 05/15/2013 DTaP,Tdap,and Td Vaccines (2 - Td or Tdap) 03/22/2022 03/22/2012 Colorectal Cancer Screening: Colonoscopy 10/27/2022 Depression Screening 10/27/2022 Falls Risk Assessment 10/27/2022 Medicare Annual Wellness Visit 10/27/2022 Osteoporosis Screening (Bone Density Screening) 10/27/2022 Social Influencers of Health Screening 10/27/2022 COVID-19 Vaccine ( - season) 2024 Influenza Vaccine (#1) 2024 2, 09/07/2021, 08/25/2020, Additional history exists Hypertension/CHF/CAD Annual BMP Blood Test 12/11/2025 12/11/2024, 12/11/2024, 11/15/2019 RSV Immunization Adult Patients (1 - 1-dose 75+ series) 2029 Cholesterol Screening (Lipid Panel) 12/11/2029 12/11/2024, 10/15/2019 Hepatitis C Screening Completed 02/12/2016 HIB Vaccines Aged Out No longer eligi ble based on patient's age to complete this topic HPV Vaccines Aged Out No longer eligi ble based on patient's age to complete this topic Hepatitis A Vaccines Aged Out No long er eligible based on patient's age to complete this topic Hepatitis B Vaccines Aged Out No long er eligible based on patient's age to complete this topic IPV Vaccines Aged Out No longer eligi ble based on patient's age to complete this topic MMR Vaccines Aged Out No longer eligi ble based on patient's age to complete this topic Meningococcal ACWY Vaccine Aged Out N o longer eligible based on patient's age to complete this topic Meningococcal B Vaccine Aged Out No l onger eligible based on patient's age to complete this topic RSV Immunization Patients Under 20 months Aged Out No longer eligible based on patient's age to complete this topic Varicella Vaccines Aged Out No longer eligible based on patient's age to complete this topic Procedures Procedure Name Priority Date/Time Associated Diagnosis Comments ANNUAL BMP BLOOD TEST Routine 11/15/2019 LIPID PANEL Routine 10/15/2019 HEPATITIS C SCREENING Routine 02/12/2016 from Last 3 Months or Most Recently Relevant to Health Maintenance Results * (ABNORMAL) Lipid panel (10/15/2019) LDL/HDL Ratio 4 0 - 4 Triglycerides 193(A) 0 - 150 mg/dL Cholesterol 185 0 - 200 mg/dL HDL 44 >=40 mg/dL LDL Cholesterol 103(A) 0 - 100 mg/dL Blood Venous blood specimen / Unknown us Historical Provider LAB BLOOD ORDERABLES Kanwal l Result * Hepatitis C Screening (02/12/2016) Pathologist [facility] Hepatitis C Screening Abstracted us Historical Provider HEALTH MAINTENANCE Final Result from Last 3 Months or Most Recently Relevant to Health Maintenance Insurance [facility] Care Teams Retention Representative Relationship Specialty Start Date End Date Milagros Mcdonald MD PCP - General Internal Medicine 03/12/22
== END 2025-03-04 14:25 | disposition home or self-care (01) ==
LOC: HO.HMCFM 13:31
PROVIDERS: PCP Physician Assistant Medical; Visit Provider Physician Assistant Medical
DX: N18.31 Chronic kidney disease, stage 3a (principal); R39.15 Urgency of urination; R39.89 Other symptoms and signs involving the genitourinary system

== ENCOUNTER 2025-03-04 13:30 | Outpatient (REF) | payer MEDICARE, SELFPAY ==
--- OUTSIDE RECORDS SUMMARY | 2025-03-04 16:37 | XMS_ITS | Encounter Summary ---
Author Organization [facility], Address [address] [place] [address] Phone Care Team Providers Care Brass Instrument Repair Technician Name Role Phone Cierra Rae PA-C Primary Care Provider [phone] Encounter Details Date Type Department Care Team (Late st Contact Info) Description 12/07/2022 Documentation Only [facility], [address] [place] [address] Damion [place] [address] [place] [address] Social History Tobacco Use Types [...] Visit [facility] [address] [address] Edenilson Dyer MD [address] [address] documented as of this encounter Visit Diagnoses Not on filedocumented in this encounter Care Teams Brass Instrument Repair Technician Relationship Specialty Start Date End Date Cierra Rae PA-C [address] [place] [phone] PCP - General Internal Medicine 12/07/22 documented as of this encounter
--- OUTSIDE RECORDS SUMMARY | 2025-03-04 16:37 | XMS_ITS | Encounter Summary ---
Author Organization [facility], Address [address] [place] [address] Phone Care Team Providers Care Analytics Manager Name Role Phone Cierra Rae PA-C Primary Care Provider [phone] Encounter Details Date Type Department Care Team (Late st Contact Info) Description 12/07/2022 Documentation Only [facility], [address] [place] [address] Damion [place] [address] [place] [address] Social History Tobacco Use Types [...] Visit [facility] [address] [address] Edenilson Dyer MD [address] [address] documented as of this encounter Visit Diagnoses Not on filedocumented in this encounter Care Teams Analytics Manager Relationship Specialty Start Date End Date Cierra Rae PA-C [address] [place] [phone] PCP - General Internal Medicine 12/07/22 documented as of this encounter
--- OUTSIDE RECORDS SUMMARY | 2025-03-04 16:37 | XMS_ITS | Encounter Summary ---
Author Organization [facility], Address [address] [place] [address] Phone Care Team Providers Care Veterinary Physiologist Name Role Phone Cierra Rae PA-C Primary Care Provider [phone] Encounter Details Date Type Department Care Team (Late st Contact Info) Description 12/07/2022 Documentation Only [facility], [address] [place] [address] Damion [place] [address] [place] [address] Social History Tobacco Use Types [...] Visit [facility] [address] [address] Edenilson Dyer MD [address] [address] documented as of this encounter Visit Diagnoses Not on filedocumented in this encounter Care Teams Veterinary Physiologist Relationship Specialty Start Date End Date Cierra Rae PA-C [address] [place] [phone] PCP - General Internal Medicine 12/07/22 documented as of this encounter
--- OUTSIDE RECORDS SUMMARY | 2025-03-04 16:37 | XMS_ITS | Clinical Summary ---
Author Organization [facility] Address [address] [place] [address] Care Team Providers Care Sammying Machine Operator Name Role Phone Milagros Mcdonald MD Primary Care Provider [phone] Allergies Active Allergy Reactions Criticality Noted Date [...] DELIVERY; COMMENT: x 2 CHOLECYSTECTOMY 1982 PROCEDURE: IN CHOLECYSTECTOMY APPENDECTOMY 1982 PROCEDURE: HISTORICAL APPENDECTOMY TONSILLECTOMY ? PROCEDURE: HISTORICAL TONSILLECTOMY OTHER SURGICAL HISTORY ? PROCEDURE: IN SINUSOT SPHENOID W/MUCOSAL STRIPPING/RMVL POLYP Medical History [...] Maternal Grandfather Maternal Grandmother Mother Alive htn, [place], arthir itis Paternal Grandfather Paternal Grandmother Sister [...] Description 07/30/2025 8:00 AM EDT Ancillary Procedure [facility] [address] [place] [address] Health Maintenance Due Date Last [...] Result * Hepatitis C Screening (02/12/2016) Pathologist [facility] Hepatitis C Screening Abstracted us Historical Provider HEALTH MAINTENANCE Final Result from Last 3 Months or Most Recently Relevant to Health Maintenance Insurance [facility] Care Teams Sammying Machine Operator Relationship Specialty Start Date End Date Milagros Mcdonald MD PCP - General Internal Medicine 03/12/22
--- OUTSIDE RECORDS SUMMARY | 2025-03-04 16:37 | XMS_ITS | Clinical Summary ---
Author Organization [facility] Address [address] [facility] [address] [place] [address] Phone Care Team Providers Care Global Project Manager Name Role Phone Cierra Rae PA-C Primary Care Provider [phone] Allergies Active Allergy Reactions Criticality Noted Date [...] Office Visit [facility] [address] [place] [phone] Edenilson Dyer MD Stage 3a chronic kidney disease (HCC) (Primary Dx); Hypokalemia; Hypertension; Hyperkalemia; Dyslipidemia; Atrophy of right kidney; Other acute kidney failure (HCC); Abdominal aortic aneurysm (HCC) 12/15/2024 Orders Only [facility] [place] [address] [place] [phone] Edenilson Dyre MD Stage 3a chronic kidney disease (HCC); [...] Office Visit [facility] [address] [address] Edenilson Dyer MD [address] [phone] Health Maintenance Due Date Last Done Comments [...] Creatinine, Ur 95.9 Not Estab. mg/dL [facility] Protein, Ur 23.2 Not Estab. mg/dL [facility] Urine Protein/Creati nine Ratio 242(H) 0 - 200 mg/g creat [facility] 12/11/2024 7:50 AM EST 12/11/2024 us Edenilson Dyer MD LAB URINE ORDERABLES Final Re sult [facility] [address] [place] [address] * Vitamin D 25 Hydroxy (12/11/2024 7:50 AM EST) Vitamin D, 25-OH, Total 34.8 30.0 - 100.0 ng/mL [facility] Comment: Vitamin D deficiency has been defined by the [place] of Medicine and an Endocrine Society practice guideline as a level of serum 25-OH vitamin D less than 20 ng/mL (1,2). The Endocrine Society went on to further define vitamin D insufficiency as a level between 21 and 29 ng/mL (2). 1. IOM ([place] of Medicine). 2010. Dietary reference ?? intakes [...] BLOOD ORDERABLES Final Re sult [facility] [address] [place] [address] * (ABNORMAL) CBC and Differential (12/11/2024 7:50 AM EST) WBC 6.8 3.4 - 10.8 x10E3/uL [facility] RBC 3.09(L) 3.77 - 5.28 x10E6/uL [facility] Hemoglobin 9.1(L) 11.1 - 15.9 g/dL [facility] Hematocrit 28.2(L) 34.0 - 46.6 % [facility] MCV 91 79 - 97 fL [facility] MCH 29.4 26.6 - 33.0 pg [facility] MCHC 32.3 31.5 - 35.7 g/dL [facility] RDW 13.5 11.7 - 15.4 % [facility] Platelets 324 150 - 450 x10E3/uL [facility] Neutrophils Relative 60 Not Estab. % [facility] Lymphocytes Relative 24 Not Estab. % [facility] Monocytes 9 Not Estab. % [facility] Eosinophils Relative 5 Not Estab. % [facility] Basophils Relative 2 Not Estab. % [facility] Neutrophils Absolute 4.1 1.4 - 7.0 x10E3/uL [facility] Lymphocytes Absolute 1.6 0.7 - 3.1 x10E3/uL [facility] Monocytes Absolute 0.6 0.1 - 0.9 x10E3/uL [facility] Eosinophils Absolute 0.4 0.0 - 0.4 x10E3/uL [facility] Basophils Absolute 0.1 0.0 - 0.2 x10E3/uL [facility] Immature Granulocytes 0 Not Estab. % [facility] Immature Grans (Absolute) 0.0 0.0 - 0.1 x10E3/uL [facility] 12/11/2024 7:50 AM EST 12/11/2024 Edenilson Dyer MD LAB BLOOD ORDERABLES Final Re sult Performing Organization Address City/[facility]/ZIP Co de Phone Number [facility] [address] [place] [address] * (ABNORMAL) Uric Acid (12/11/2024 7:50 AM EST) Uric Acid 7.8(H) 3.0 - 7.2 mg/dL [facility] Comment:Therapeutic target f or gout patients: <6.0 12/11/2024 7:50 AM EST 12/11/2024 Edenilson Dyer MD LAB BLOOD ORDERABLES Final Re sult [facility] [address] [place] [address] * Phosphorus (12/11/2024 7:50 AM EST) Phosphorus 4.0 3.0 - 4.3 mg/dL [facility] 12/11/2024 7:50 AM EST 12/11/2024 Edenilson Dyer MD LAB BLOOD ORDERABLES Final Re sult Performing Organization Address City/[facility]/ZIP Co de Phone Number [facility] [address] [place] [address] * PTH, Intact (12/11/2024 7:50 AM EST) PTH 46 15 - 65 pg/mL [facility] 12/11/2024 7:50 AM EST 12/11/2024 Edenilson Dyer MD LAB BLOOD ORDERABLES Final Re sult Performing Organization Address City/[facility]/ZIP Co de Phone Number [facility] [address] [place] [address] * Magnesium (12/11/2024 7:50 AM EST) Pathologist [facility] Magnesium 2.1 1.6 - 2.3 mg/dL [facility] 12/11/2024 7:50 AM EST 12/11/2024 Edenilson Dyer MD LAB BLOOD ORDERABLES Final Re sult Performing Organization Address City/[facility]/ZIP Co de Phone Number [facility] [address] [place] [address] * (ABNORMAL) Lipid panel (12/11/2024 7:50 AM EST) Cholesterol 169 100 - 199 mg/dL [facility] Triglycerides 151(H) 0 - 149 mg/dL [facility] HDL 48 >39 mg/dL [facility] VLDL Cholesterol Audi 26 5 - 40 mg/dL [facility] LDL Calculated 95 0 - 99 mg/dL [facility] 12/11/2024 7:50 AM EST 12/11/2024 us Edenilson Dyer MD LAB BLOOD ORDERABLES Final Re sult [facility] [address] [place] [address] * (ABNORMAL) Comprehensive Metabolic Panel (12/11/2024 7:50 AM EST) Pathologist [facility] Glucose 92 70 - 99 mg/dL [facility] Bicarbonate (CO2) 21 20 - 29 mmol/L [facility] Calcium 9.7 8.7 - 10.3 mg/dL [facility] Total Bilirubin <0.2 0.0 - 1.2 mg/dL [facility] AST (SGOT) 19 0 - 40 IU/L [facility] BUN 25 8 - 27 mg/dL [facility] Creatinine 1.08(H) 0.57 - 1.00 mg/dL [facility] eGFR CKD-EPI CR 2020 55(L) >59 mL/min/1.7 3 [facility] BUN/Creatinine Ratio 23 12 - 28 [facility] Sodium 139 134 - 144 mmol/L [facility] Potassium 4.9 3.5 - 5.2 mmol/L [facility] Chloride 103 96 - 106 mmol/L [facility] Total Protein 7.2 6.0 - 8.5 g/dL [facility] Albumin 4.4 3.9 - 4.9 g/dL [facility] Globulin 2.8 1.5 - 4.5 g/dL [facility] Alkaline Phosphatase 80 44 - 121 IU/L [facility] ALT (SGPT) 18 0 - 32 IU/L [facility] 12/11/2024 7:50 AM EST 12/11/2024 us Edenilson Dyer MD LAB BLOOD ORDERABLES Final Re sult [facility] [address] [place] [address] from Last 3 Months Insurance MEDICARE [facility] MEDICARE [facility] Care Teams Global Project Manager Relationship Specialty Start Date End Date Cierra Rae PA-C [address] [place] [id number] PCP - General Internal Medicine 12/07/22
== END 2025-03-04 13:31 | disposition home or self-care (01) ==
LOC: HO.LAB 13:30
PROVIDERS: PCP Physician Assistant Medical; Visit Provider Physician Assistant Medical
DX: R39.15 Urgency of urination (principal); R39.89 Other symptoms and signs involving the genitourinary system; I15.0 Renovascular hypertension; N18.31 Chronic kidney disease, stage 3a; D50.9 Iron deficiency anemia, unspecified; Z79.899 Other long term (current) drug therapy
CPT/HCPCS: 96127; 99212

== ENCOUNTER 2025-03-04 14:26 | Outpatient (REF) | payer MEDICARE, SELFPAY ==
--- OUTSIDE RECORDS SUMMARY | 2025-03-04 17:15 | XMS_ITS | Encounter Summary ---
Author Organization [facility], Address [address] [place] [address] Phone Care Team Providers Care Pourer Metal Name Role Phone Cierra Rae PA-C Primary Care Provider [phone] Encounter Details Date Type Department Care Team (Late st Contact Info) Description 12/07/2022 Documentation Only [facility], [address] [place] [address] Damion [place] [address] [place] [address] Social History Tobacco Use Types [...] Visit [facility] [address] [address] Edenilson Dyer MD [address] [address] documented as of this encounter Visit Diagnoses Not on filedocumented in this encounter Care Teams Pourer Metal Relationship Specialty Start Date End Date Cierra Rae PA-C [address] [place] [address] PCP - General Internal Medicine 12/07/22 documented as of this encounter
--- OUTSIDE RECORDS SUMMARY | 2025-03-04 17:15 | XMS_ITS | Encounter Summary ---
Author Organization [facility], Address [address] [place] [address] Phone Care Team Providers Care Arc Trimmer Name Role Phone Cierra Rae PA-C Primary Care Provider [phone] Encounter Details Date Type Department Care Team (Late st Contact Info) Description 12/07/2022 Documentation Only [facility], [address] [place] [address] Damion [place] [address] [place] [address] Social History Tobacco Use Types [...] Visit [facility] [address] [address] Edenilson Dyer MD [address] [address] documented as of this encounter Visit Diagnoses Not on filedocumented in this encounter Care Teams Arc Trimmer Relationship Specialty Start Date End Date Cierra Rae PA-C [address] [place] [address] PCP - General Internal Medicine 12/07/22 documented as of this encounter
--- OUTSIDE RECORDS SUMMARY | 2025-03-04 17:15 | XMS_ITS | Clinical Summary ---
Author Organization [facility] Address [address] [facility] [place] [address] Phone Care Team Providers Care Supreme Court Judge Name Role Phone Cierra Rae PA-C Primary Care Provider [phone] Allergies Active Allergy Reactions Criticality Noted Date [...] Office Visit [facility] [address] [place] [phone] Edenilson Dyer MD Stage 3a chronic kidney disease (HCC) (Primary Dx); Hypokalemia; Hypertension; Hyperkalemia; Dyslipidemia; Atrophy of right kidney; Other acute kidney failure (HCC); Abdominal aortic aneurysm (HCC) 12/15/2024 Orders Only [facility] [address] [place] [phone] Edenilson Dyer MD Stage 3a chronic kidney [...] Office Visit [facility] [address] [address] Edenilson Dyer MD [address] [phone] Health Maintenance Due Date Last Done Comments [...] Creatinine, Ur 95.9 Not Estab. mg/dL [facility] Protein, Ur 23.2 Not Estab. mg/dL [facility] Urine Protein/Creati nine Ratio 242(H) 0 - 200 mg/g creat [facility] 12/11/2024 7:50 AM EST 12/11/2024 us Edenilson Dyer MD LAB URINE ORDERABLES Final Re sult [facility] [address] [place] [address] * Vitamin D 25 Hydroxy (12/11/2024 7:50 AM EST) Vitamin D, 25-OH, Total 34.8 30.0 - 100.0 ng/mL [facility] Comment: Vitamin D deficiency has been defined by the [place] of Medicine and an Endocrine Society practice guideline as a level of serum 25-OH vitamin D less than 20 ng/mL (1,2). The Endocrine Society went on to further define vitamin D insufficiency as a level between 21 and 29 ng/mL (2). 1. IOM ([place] of [employer]). 2010. Dietary reference ?? intakes [...] BLOOD ORDERABLES Final Re sult [facility] [address] [place] [address] * (ABNORMAL) CBC and Differential (12/11/2024 7:50 AM EST) WBC 6.8 3.4 - 10.8 x10E3/uL [facility] RBC 3.09(L) 3.77 - 5.28 x10E6/uL [facility] Hemoglobin 9.1(L) 11.1 - 15.9 g/dL [facility] Hematocrit 28.2(L) 34.0 - 46.6 % [facility] MCV 91 79 - 97 fL [facility] MCH 29.4 26.6 - 33.0 pg [facility] MCHC 32.3 31.5 - 35.7 g/dL [facility] RDW 13.5 11.7 - 15.4 % [facility] Platelets 324 150 - 450 x10E3/uL [facility] Neutrophils Relative 60 Not Estab. % [facility] Lymphocytes Relative 24 Not Estab. % [facility] Monocytes 9 Not Estab. % [facility] Eosinophils Relative 5 Not Estab. % [facility] Basophils Relative 2 Not Estab. % [facility] Neutrophils Absolute 4.1 1.4 - 7.0 x10E3/uL [facility] Lymphocytes Absolute 1.6 0.7 - 3.1 x10E3/uL [facility] Monocytes Absolute 0.6 0.1 - 0.9 x10E3/uL [facility] Eosinophils Absolute 0.4 0.0 - 0.4 x10E3/uL [facility] Basophils Absolute 0.1 0.0 - 0.2 x10E3/uL [facility] Immature Granulocytes 0 Not Estab. % [facility] Immature Grans (Absolute) 0.0 0.0 - 0.1 x10E3/uL [facility] 12/11/2024 7:50 AM EST 12/11/2024 Edenislon Dyer MD LAB BLOOD ORDERABLES Final Re sult Performing Organization Address City/[facility]/ZIP Co de Phone Number [facility] [address] [place] [address] * (ABNORMAL) Uric Acid (12/11/2024 7:50 AM EST) Uric Acid 7.8(H) 3.0 - 7.2 mg/dL [facility] Comment:Therapeutic target f or gout patients: <6.0 12/11/2024 7:50 AM EST 12/11/2024 Edenilson Dyer MD LAB BLOOD ORDERABLES Final Re sult [facility] [address] [place] [address] * Phosphorus (12/11/2024 7:50 AM EST) Phosphorus 4.0 3.0 - 4.3 mg/dL [facility] 12/11/2024 7:50 AM EST 12/11/2024 Edenilson Dyer MD LAB BLOOD ORDERABLES Final Re sult Performing Organization Address City/[facility]/ZIP Co de Phone Number [facility] [address] [place] [address] * PTH, Intact (12/11/2024 7:50 AM EST) PTH 46 15 - 65 pg/mL [facility] 12/11/2024 7:50 AM EST 12/11/2024 Edenilson Dyer MD LAB BLOOD ORDERABLES Final Re sult Performing Organization Address City/[facility]/ZIP Co de Phone Number [facility] [address] [place] [address] * Magnesium (12/11/2024 7:50 AM EST) Pathologist [facility] Magnesium 2.1 1.6 - 2.3 mg/dL [facility] 12/11/2024 7:50 AM EST 12/11/2024 Edenilson Dyer MD LAB BLOOD ORDERABLES Final Re sult Performing Organization Address City/[facility]/ZIP Co de Phone Number [facility] [address] [place] [address] * (ABNORMAL) Lipid panel (12/11/2024 7:50 AM EST) Cholesterol 169 100 - 199 mg/dL [facility] Triglycerides 151(H) 0 - 149 mg/dL [facility] HDL 48 >39 mg/dL [facility] VLDL Cholesterol Audi 26 5 - 40 mg/dL [facility] LDL Calculated 95 0 - 99 mg/dL [facility] 12/11/2024 7:50 AM EST 12/11/2024 us Edenilson Dyer MD LAB BLOOD ORDERABLES Final Re sult [facility] [address] [place] [address] * (ABNORMAL) Comprehensive Metabolic Panel (12/11/2024 7:50 AM EST) Pathologist [facility] Glucose 92 70 - 99 mg/dL [facility] Bicarbonate (CO2) 21 20 - 29 mmol/L [facility] Calcium 9.7 8.7 - 10.3 mg/dL [facility] Total Bilirubin <0.2 0.0 - 1.2 mg/dL [facility] AST (SGOT) 19 0 - 40 IU/L [facility] BUN 25 8 - 27 mg/dL [facility] Creatinine 1.08(H) 0.57 - 1.00 mg/dL [facility] eGFR CKD-EPI CR 2020 55(L) >59 mL/min/1.7 3 [facility] BUN/Creatinine Ratio 23 12 - 28 [facility] Sodium 139 134 - 144 mmol/L [facility] Potassium 4.9 3.5 - 5.2 mmol/L [facility] Chloride 103 96 - 106 mmol/L [facility] Total Protein 7.2 6.0 - 8.5 g/dL [facility] Albumin 4.4 3.9 - 4.9 g/dL [facility] Globulin 2.8 1.5 - 4.5 g/dL [facility] Alkaline Phosphatase 80 44 - 121 IU/L [facility] ALT (SGPT) 18 0 - 32 IU/L [facility] 12/11/2024 7:50 AM EST 12/11/2024 us Edenilson Dyer MD LAB BLOOD ORDERABLES Final Re sult [facility] [address] [place] [address] from Last 3 Months Insurance MEDICARE [facility] MEDICARE [facility] Care Teams Supreme Court Judge Relationship Specialty Start Date End Date Cierra Rae PA-C [address] [place] [phone] PCP - General Internal Medicine 12/07/22
--- OUTSIDE RECORDS SUMMARY | 2025-03-04 17:15 | XMS_ITS | Encounter Summary ---
Author Organization [facility], Address [address] [place] [address] Phone Care Team Providers Care Cycle Consultant Name Role Phone Cierra Rae PA-C Primary Care Provider [phone] Encounter Details Date Type Department Care Team (Late st Contact Info) Description 12/07/2022 Documentation Only [facility], [address] [place] [address] Damion [place] [address] [place] [address] Social History Tobacco Use Types [...] Visit [facility] [address] [address] Edenilson Dyer MD [address] [address] documented as of this encounter Visit Diagnoses Not on filedocumented in this encounter Care Teams Cycle Consultant Relationship Specialty Start Date End Date Cierra Rae PA-C [address] [place] [address] PCP - General Internal Medicine 12/07/22 documented as of this encounter
--- OUTSIDE RECORDS SUMMARY | 2025-03-04 17:15 | XMS_ITS | Clinical Summary ---
Author Organization [facility] Address [address] [place] [address] Care Team Providers Care Ground Operations Supervisor Name Role Phone Milagros Mcdonald MD Primary Care Provider [phone] Allergies Active Allergy Reactions Criticality Noted Date [...] DELIVERY; COMMENT: x 2 CHOLECYSTECTOMY 1982 PROCEDURE: NE CHOLECYSTECTOMY APPENDECTOMY 1982 PROCEDURE: HISTORICAL APPENDECTOMY TONSILLECTOMY ? PROCEDURE: HISTORICAL TONSILLECTOMY OTHER SURGICAL HISTORY ? PROCEDURE: NE SINUSOT SPHENOID W/MUCOSAL STRIPPING/RMVL POLYP Medical History [...] Maternal Grandfather Maternal Grandmother Mother Alive htn, [place], arthir itis Paternal Grandfather Paternal Grandmother Sister [...] Description 07/30/2025 8:00 AM EDT Ancillary Procedure [facility] [address] [place] [address] Health Maintenance Due Date Last [...] Result * Hepatitis C Screening (02/12/2016) Pathologist [facility] Hepatitis C Screening Abstracted us Historical Provider HEALTH MAINTENANCE Final Result from Last 3 Months or Most Recently Relevant to Health Maintenance Insurance [facility] Care Teams Ground Operations Supervisor Relationship Specialty Start Date End Date Milagros Mcdonald MD PCP - General Internal Medicine 03/12/22
[2025-03-04 17:44] LABS: MANUAL DIFF FLAG NO
[2025-03-04 17:49] LABS: Basophils Absolute Auto 0.1 X10*3/uL (0.0-0.2); Basophils Percent Auto 1.4 % (0-2); Eosinophils Absolute Auto 0.2 X10*3/uL (0.0-0.4); Eosinophils Percent Auto 3.3 % (0-4); Hematocrit 24.7 % (37.0-47.0); Hemoglobin 7.8 g/dl (12.0-16.0); Imm Gran Abs Auto 0.02 X10*3/uL (0.00-0.03); Imm Gran Pct Auto 0.3 % (0.0-0.4); Lymphocytes Absolute Auto 1.7 X10*3/uL (1.2-4.9); Lymphocytes Percent Auto 25.5 % (20-40); Mean Corpuscular HGB Conc 31.6 g/dl (31.0-35.0); Mean Corpuscular Hemoglobin 28.2 pg (27.0-33.0); Mean Corpuscular Volume 89.2 fL (80.0-98.0); Mean Platelet Volume 9.7 fL (9.4-12.3); Monocytes Absolute Auto 0.6 X10*3/uL (0.1-1.2); Monocytes Percent Auto 8.3 % (2-11); Neutrophils Percent Auto 61.2 % (45-73); Platelet Count 345 X10*3/uL (160-400); Red Blood Count 2.77 X10*6/uL (4.20-5.50); Red Cell Distribution Width 14.4 % (11.0-16.0); White Blood Count 6.6 X10*3/uL (4.8-10.8)
[2025-03-04 17:50] LABS: Appearance Urine Clear; Color Urine Yellow; Glucose Urine UA Negative (Negative); Leukocyte Esterase Urine Negative (Negative); Nitrite Urine Negative (Negative); PH 5.5 (5.0-9.0); Urine Blood Negative (Negative); Urine Ketones Negative (Negative); Urine Protein Negative (Neg-Trace)
[2025-03-04 17:53] LABS: Bacteria Urine None Seen (None Seen); Hyaline Casts Urine 0-2 /LPF (0-2); RBC Urine 0-2 /HPF (0-2); Squamous Epithelial Cell Urine 0-2 /HPF (0-2); WBC Urine 0-5 /HPF (0-5)
[2025-03-04 18:25] LABS: Vitamin B12 299 pg/mL (200-900)
[2025-03-04 19:11] LABS: Alanine Aminotransferase 20 U/L (0-31); Albumin Level 4.2 g/dL (3.5-5.0); Alkaline Phosphatase 68 U/L (39-117); Anion Gap 11 (12-20); Aspartate Amino Transferase 23 U/L (5-31); Bilirubin Total 0.3 mg/dL (0.0-1.0); Blood Urea Nitrogen 21 mg/dL (9-16); Calcium 9.4 mg/dL (8.4-10.2); Carbon Dioxide 23 mmol/L (22-29); Chloride 109 mmol/L (96-108); Estimated Glomerular Filt Rate 56; Glucose Random 88 mg/dL (60-115); Iron 28 mcg/dL (30-160); Percent Iron Saturation 8 % (15-50); Sodium 139 mmol/L (135-145); Total Iron Binding Capacity 340 mcg/dL (228-428); Total Protein 7.4 g/dL (6.5-8.0); Unsaturated Iron Binding 312 ug/dL
[2025-03-04 19:17] LABS: Ferritin 17 ng/mL (10-250)
== END 2025-03-04 14:27 | disposition home or self-care (01) ==
LOC: HO.WFDLDS 14:26
PROVIDERS: Visit Provider Physician Assistant Medical
DX: N18.31 Chronic kidney disease, stage 3a (principal); R39.89 Other symptoms and signs involving the genitourinary system; D50.9 Iron deficiency anemia, unspecified; R39.9 Unspecified symptoms and signs involving the genitourinary system
CPT/HCPCS: 36415; 80053; 81001; 82607; 82728; 83540; 85025; 87086; 96127; 99212

== ENCOUNTER 2025-03-04 15:22 | Outpatient (REF) | payer MEDICARE, SELFPAY ==
--- NOTE | ~2025-03-04 | US_ITS ---
EXAMINATION: US RETROPERITONEAL COMPLETE (RENAL) CLINICAL INFORMATION: Urgency of urination. History of atrophic right kidney. COMPARISON: None available. TECHNIQUE: Real-time imaging of the kidneys and bladder. FINDINGS: RIGHT KIDNEY: 6.6 x 2.3 x 3.1 cm (SAG x AP x TRV). The kidney is atrophic in size, with diffuse cortical thinning and increased cortical echogenicity. No calculi or focal parenchymal lesions. Mild hydronephrosis. LEFT KIDNEY: 9.1 x 5.5 x 6.0 cm (SAG x AP x TRV). The kidney is normal in size, contour, and echogenicity. Renal cortical thickness is normal. No calculi or focal parenchymal lesions. Mild hydronephrosis. BLADDER: Well distended and normal. A left ureteral jet was present. The right was not seen. Prevoid bladder volume is 276 mL. Postvoid bladder volume is 15 mL. US/US retroperitoneal comp IMPRESSION: 1. Bilateral mild hydronephrosis. Etiology is not clear. 2. Right renal atrophy. 3. Normal urinary bladder with postvoid residual of 15 mL. Electronically signed by: Topher Keating MD 03/04/2025 04:45 PM EDT
--- OUTSIDE RECORDS SUMMARY | 2025-03-04 18:12 | XMS_ITS | Encounter Summary ---
Author Organization [facility], Address [address] [place] [address] Phone Care Team Providers Care Electric Distribution Engineer Name Role Phone Cierra Rae PA-C Primary Care Provider [phone] Encounter Details Date Type Department Care Team (Late st Contact Info) Description 12/07/2022 Documentation Only [facility], [address] [place] [address] Damion [place] [address] [place] [address] Social History Tobacco Use Types [...] Visit [facility] [address] [address] Edenilson Dyer MD [address] [address] documented as of this encounter Visit Diagnoses Not on filedocumented in this encounter Care Teams Electric Distribution Engineer Relationship Specialty Start Date End Date Cierra Rae PA-C [address] [place] [address] PCP - General Internal Medicine 12/07/22 documented as of this encounter
--- OUTSIDE RECORDS SUMMARY | 2025-03-04 18:12 | XMS_ITS | Clinical Summary ---
Author Organization [facility] Address [address] [facility] [address] [place] [address] Phone Care Team Providers Care Public Address System Installer Name Role Phone Cierra Rae PA-C Primary Care Provider [phone] Allergies Active Allergy Reactions Criticality Noted Date [...] Office Visit [facility] [address] [place] [phone] Edenilson Dyer MD Stage 3a chronic kidney disease (HCC) (Primary Dx); Hypokalemia; Hypertension; Hyperkalemia; Dyslipidemia; Atrophy of right kidney; Other acute kidney failure (HCC); Abdominal aortic aneurysm (HCC) 12/15/2024 Orders Only [facility] [address] [place] [phone] Edenilson Dyer MD Stage 3a chronic kidney [...] Office Visit [facility] [address] [address] Edenilson Dyer MD [address] [phone] Health Maintenance Due Date Last Done Comments [...] Creatinine, Ur 95.9 Not Estab. mg/dL [facility] Protein, Ur 23.2 Not Estab. mg/dL [facility] Urine Protein/Creati nine Ratio 242(H) 0 - 200 mg/g creat [facility] 12/11/2024 7:50 AM EST 12/11/2024 us Edenilson Dyer MD LAB URINE ORDERABLES Final Re sult [facility] [address] [place] [address] * Vitamin D 25 Hydroxy (12/11/2024 7:50 AM EST) Vitamin D, 25-OH, Total 34.8 30.0 - 100.0 ng/mL [facility] Comment: Vitamin D deficiency has been defined by the [place] of [employer] and an Endocrine Society practice guideline as a level of serum 25-OH vitamin D less than 20 ng/mL (1,2). The Endocrine Society went on to further define vitamin D insufficiency as a level between 21 and 29 ng/mL (2). 1. IOM ([place] of Medicine). 2010. Dietary reference ?? intakes [...] BLOOD ORDERABLES Final Re sult [facility] [address] [place] [address] * (ABNORMAL) CBC and Differential (12/11/2024 7:50 AM EST) WBC 6.8 3.4 - 10.8 x10E3/uL [facility] RBC 3.09(L) 3.77 - 5.28 x10E6/uL [facility] Hemoglobin 9.1(L) 11.1 - 15.9 g/dL [facility] Hematocrit 28.2(L) 34.0 - 46.6 % [facility] MCV 91 79 - 97 fL [facility] MCH 29.4 26.6 - 33.0 pg [facility] MCHC 32.3 31.5 - 35.7 g/dL [facility] RDW 13.5 11.7 - 15.4 % [facility] Platelets 324 150 - 450 x10E3/uL [facility] Neutrophils Relative 60 Not Estab. % [facility] Lymphocytes Relative 24 Not Estab. % [facility] Monocytes 9 Not Estab. % [facility] Eosinophils Relative 5 Not Estab. % [facility] Basophils Relative 2 Not Estab. % [facility] Neutrophils Absolute 4.1 1.4 - 7.0 x10E3/uL [facility] Lymphocytes Absolute 1.6 0.7 - 3.1 x10E3/uL [facility] Monocytes Absolute 0.6 0.1 - 0.9 x10E3/uL [facility] Eosinophils Absolute 0.4 0.0 - 0.4 x10E3/uL [facility] Basophils Absolute 0.1 0.0 - 0.2 x10E3/uL [facility] Immature Granulocytes 0 Not Estab. % [facility] Immature Grans (Absolute) 0.0 0.0 - 0.1 x10E3/uL [facility] 12/11/2024 7:50 AM EST 12/11/2024 Edenilson Dyer MD LAB BLOOD ORDERABLES Final Re sult Performing Organization Address City/[facility]/ZIP Co de Phone Number [facility] [address] [place] [address] * (ABNORMAL) Uric Acid (12/11/2024 7:50 AM EST) Uric Acid 7.8(H) 3.0 - 7.2 mg/dL [facility] Comment:Therapeutic target f or gout patients: <6.0 12/11/2024 7:50 AM EST 12/11/2024 Edenilson Dyer MD LAB BLOOD ORDERABLES Final Re sult [facility] [address] [place] [address] * Phosphorus (12/11/2024 7:50 AM EST) Phosphorus 4.0 3.0 - 4.3 mg/dL [facility] 12/11/2024 7:50 AM EST 12/11/2024 Edenilson Dyer MD LAB BLOOD ORDERABLES Final Re sult Performing Organization Address City/[facility]/ZIP Co de Phone Number [facility] [address] [place] [address] * PTH, Intact (12/11/2024 7:50 AM EST) PTH 46 15 - 65 pg/mL [facility] 12/11/2024 7:50 AM EST 12/11/2024 Edenilson Dyer MD LAB BLOOD ORDERABLES Final Re sult Performing Organization Address City/[facility]/ZIP Co de Phone Number [facility] [address] [place] [address] * Magnesium (12/11/2024 7:50 AM EST) Pathologist [facility] Magnesium 2.1 1.6 - 2.3 mg/dL [facility] 12/11/2024 7:50 AM EST 12/11/2024 Edenilson Dyer MD LAB BLOOD ORDERABLES Final Re sult Performing Organization Address City/[facility]/ZIP Co de Phone Number [facility] [address] [place] [address] * (ABNORMAL) Lipid panel (12/11/2024 7:50 AM EST) Cholesterol 169 100 - 199 mg/dL [facility] Triglycerides 151(H) 0 - 149 mg/dL [facility] HDL 48 >39 mg/dL [facility] VLDL Cholesterol Audi 26 5 - 40 mg/dL [facility] LDL Calculated 95 0 - 99 mg/dL [facility] 12/11/2024 7:50 AM EST 12/11/2024 us Edenilson Dyer MD LAB BLOOD ORDERABLES Final Re sult [facility] [address] [place] [address] * (ABNORMAL) Comprehensive Metabolic Panel (12/11/2024 7:50 AM EST) Pathologist [facility] Glucose 92 70 - 99 mg/dL [facility] Bicarbonate (CO2) 21 20 - 29 mmol/L [facility] Calcium 9.7 8.7 - 10.3 mg/dL [facility] Total Bilirubin <0.2 0.0 - 1.2 mg/dL [facility] AST (SGOT) 19 0 - 40 IU/L [facility] BUN 25 8 - 27 mg/dL [facility] Creatinine 1.08(H) 0.57 - 1.00 mg/dL [facility] eGFR CKD-EPI CR 2020 55(L) >59 mL/min/1.7 3 [facility] BUN/Creatinine Ratio 23 12 - 28 [facility] Sodium 139 134 - 144 mmol/L [facility] Potassium 4.9 3.5 - 5.2 mmol/L [facility] Chloride 103 96 - 106 mmol/L [facility] Total Protein 7.2 6.0 - 8.5 g/dL [facility] Albumin 4.4 3.9 - 4.9 g/dL [facility] Globulin 2.8 1.5 - 4.5 g/dL [facility] Alkaline Phosphatase 80 44 - 121 IU/L [facility] ALT (SGPT) 18 0 - 32 IU/L [facility] 12/11/2024 7:50 AM EST 12/11/2024 us Edenilson Dyer MD LAB BLOOD ORDERABLES Final Re sult [facility] [address] [place] [address] from Last 3 Months Insurance MEDICARE [facility] MEDICARE [facility] MEDICARE Care Teams Public Address System Installer Relationship Specialty Start Date End Date Cierra Rae PA-C [address] [place] [id number] PCP - General Internal Medicine 12/07/22
--- OUTSIDE RECORDS SUMMARY | 2025-03-04 18:12 | XMS_ITS | Encounter Summary ---
Author Organization [facility], Address [address] [place] [address] Phone Care Team Providers Care Xm1 Tank Driver Name Role Phone Cierra Rae PA-C Primary Care Provider [phone] Encounter Details Date Type Department Care Team (Late st Contact Info) Description 12/07/2022 Documentation Only [facility], [address] [place] [address] Damion Dalton MD [address] [place] [address] Social History Tobacco Use Types [...] Visit [facility] [address] [address] Edenilson Dyer MD [address] [address] documented as of this encounter Visit Diagnoses Not on filedocumented in this encounter Care Teams Xm1 Tank Driver Relationship Specialty Start Date End Date Cierra Rae PA-C [address] [place] [id number] PCP - General Internal Medicine 12/07/22 documented as of this encounter
--- OUTSIDE RECORDS SUMMARY | 2025-03-04 18:12 | XMS_ITS | Clinical Summary ---
Author Organization [facility] Address [address] [place] [address] Care Team Providers Care Manufacturing Storeperson Name Role Phone Milagros Mcdonald MD Primary Care Provider [phone] Allergies Active Allergy Reactions Criticality Noted Date [...] DELIVERY; COMMENT: x 2 CHOLECYSTECTOMY 1982 PROCEDURE: GA CHOLECYSTECTOMY APPENDECTOMY 1982 PROCEDURE: HISTORICAL APPENDECTOMY TONSILLECTOMY ? PROCEDURE: HISTORICAL TONSILLECTOMY OTHER SURGICAL HISTORY ? PROCEDURE: GA SINUSOT SPHENOID W/MUCOSAL STRIPPING/RMVL POLYP Medical History [...] Maternal Grandfather Maternal Grandmother Mother Alive htn, [place], arthir itis Paternal Grandfather Paternal Grandmother Sister [...] Description 07/30/2025 8:00 AM EDT Ancillary Procedure [facility] [address] [place] [address] Health Maintenance Due Date Last [...] Hepatitis C Screening (02/12/2016) Pathologist [facility] Hepatitis C Screening Abstracted us Historical Provider HEALTH MAINTENANCE Final Result from Last 3 Months or Most Recently Relevant to Health Maintenance Insurance [facility] Care Teams Manufacturing Storeperson Relationship Specialty Start Date End Date Milagros Mcdonald MD PCP - General Internal Medicine 03/12/22
--- OUTSIDE RECORDS SUMMARY | 2025-03-04 18:12 | XMS_ITS | Encounter Summary ---
Author Organization [facility], Address [address] [place] [address] Phone Care Team Providers Care Satellite Instruction Facilitator Name Role Phone Cierra Rae PA-C Primary Care Provider [phone] Encounter Details Date Type Department Care Team (Late st Contact Info) Description 12/07/2022 Documentation Only [facility], [address] [place] [address] Damion Dalton [place] [address] [place] [address] Social History Tobacco Use Types [...] Visit [facility] [address] [address] Edenilson Dyer MD [address] [address] documented as of this encounter Visit Diagnoses Not on filedocumented in this encounter Care Teams Satellite Instruction Facilitator Relationship Specialty Start Date End Date Cierra Rae PA-C [address] [place] [address] PCP - General Internal Medicine 12/07/22 documented as of this encounter
== END 2025-03-04 15:23 | disposition home or self-care (01) ==
LOC: HO.US 15:22
PROVIDERS: PCP Physician Assistant Medical; Visit Provider Physician Assistant Medical
DX: R39.15 Urgency of urination (principal); R39.89 Other symptoms and signs involving the genitourinary system; I15.0 Renovascular hypertension; N18.31 Chronic kidney disease, stage 3a; D50.9 Iron deficiency anemia, unspecified; Z79.899 Other long term (current) drug therapy
CPT/HCPCS: 36415; 76770; 80053; 81001; 82607; 82728; 83540; 85025; 87086; 96127; 99212

== ENCOUNTER → 2025-03-04 15:34 | Outpatient (BNV) | payer MEDICARE, SELFPAY | PROVIDERS: PCP Physician Assistant Medical; Visit Provider Radiology Diagnostic Radiology | DX: N26.1 Atrophy of kidney (terminal) (principal); R39.14 Feeling of incomplete bladder emptying | CPT/HCPCS: 76770 ==

== ENCOUNTER → 2025-03-08 13:47 | Outpatient (REF) | payer MEDICARE, SELFPAY ==
--- NOTE | 2025-03-08 13:51 | CA_ITS ---
Transthoracic Echocardiogram Patient (Last, First, Middle): Anna Gonzalez, Gender: Female Date of : 1955 Age: 70 Procedure Date: 03/08/2025 Procedure Type: Transthoracic Echocardiogram Location: OP Height: 152.4 cm Weight: 77.11 kg BSA: 1.74 m2 Heart Rate: bpm BP: 116 / 60 mmHg Vessel Manager: Referring MD: Cierra JAMES Symptoms: I35.0 - Nonrheumatic aortic (valve) stenosis Study Quality: Good ECG Rhythm: Sinus Conclusions: - Normal left ventricular cavity size. There is moderately increased left ventricular wall thickness. The left ventricular systolic function is hyperdynamic. The visually estimated ejection fraction is >70%. - Normal right ventricular cavity size and systolic function. - There is mild aortic valve stenosis. Findings Left Ventricle Normal left ventricular cavity size. There is moderately increased left ventricular wall thickness. The left ventricular systolic function is hyperdynamic. The visually estimated ejection fraction is >70%. Abnormal diastolic function is noted. Spectral Doppler is indicative of an impaired relaxation filling pattern. E/E prime ratio is between 8 and 15 consistent with indeterminate filling pressures. Right Ventricle Normal right ventricular cavity size and systolic function. Atria The left atrium is severely dilated. The right atrium was not well visualized. Aortic Valve There is moderate calcification of the aortic valve. There is mild aortic valve stenosis. The peak aortic velocity is 2.48 m/s. The aortic valve area is 1.48 cm2. There is no aortic valve regurgitation. Mitral Valve The mitral valve appears normal. There is no mitral valve regurgitation. There is no mitral valve stenosis. Pulmonic Valve The pulmonic valve is likely normal. There is trace pulmonic valve regurgitation. Tricuspid Valve Normal tricuspid valve structure. There is trace tricuspid valve regurgitation. Normal right atrial pressure. There is no evidence of pulmonary hypertension. Great Vessels All visible segments of the aorta are normal in size. Venous The inferior vena cava is normal in size and collapses greater than 50% with inspiration. Pericardium/Pleural There is no evidence of pericardial effusion. Prior Study Comparison No prior study available for comparison. Measurements 2D Linear Measurements IVSd: 1.22 0.6-0.9/0.6-1.0 cm LVIDd: 4.58 3.9-5.3/4.2-5.9 cm LVIDd Index: 2.63 2.4-3.2/2.2-3.1 cm/m2 LVIDs: 3.04 2.0-3.6 cm LVPWd: 1.22 0.7-1.1 cm Ao Root: 3.00 2.1-3.5 cm LA Diam: 4.30 2.7-3.8/3.0-4.0 cm LAIDs Index: 2.47 1.5-2.3 cm/m2 LV Mass: 259.87 67-162/88-224 g LV Mass Index: 149.35 43-95/49-115 g/m2 LVOT Diam: 1.90 3.0+(-)1.3 cm 2D Systolic Function EF 4C: 58.80 >55% EF 2C: 60.40 >55% EF BiP: 58.90 >55% Mitral Valve MV Pk E: 0.72 MV PK A: 1.14 MV Decel Time: 263.00 E/A: 0.60 E'Lateral: 5.98 E'Medial: 6.31 E/E' Med: 11.40 E/E' Lat: 12.00 PHT: 77.00 MVA PHT: 2.86 Decel Valencia: 2.73 Aortic Valve AoV Pk Juan C: 2.48 AoV Mn Juan C: 1.71 AoV VTI: 0.68 AoV Pk Grad: 25.00 Aov Mn Grad: 14.00 DOMENIC Cont.VTI: 1.48 LVOT LVOT Pk Juan C: 1.26 LVOT Mn Juan C: 0.86 LVOT VTI: 0.35 LVOT Pk Grad: 6.00 LVOT Mn Grad: 4.00 LVOT Diam: 1.90 LVOT Area: 2.84 Diastolic Function MV Pk E: 0.72 MV Pk A: 1.14 E/A: 0.60 E'Medial: 6.31 E/E' Med: 11.40 E' Laterial: 5.98 E/E' Lat: 12.00 Right Ventricle TAPSE (mm): 23.00 TVS' Juan C: 13.00 Tricuspid Valve TR Pk Juan C: 2.22 TR Pk Grad: 20.00 RA Press: 3.00 RVSP: 23.00 Great Vessels Aorta Ao Root-2D: 3.00 2.0-3.7 cm Ao Asc: 3.40 2.1-3.4 cm Pulmonary Valve PV Pk Juan C: 1.38 Peak PV Grad: 8.00 Updated in Other Vendor System with Status of Final Deng Gonzalez MD electronically signed on 03/10/2025 9:37:07 PM with status of Final
--- OUTSIDE RECORDS SUMMARY | 2025-03-08 14:08 | XMS_ITS | Encounter Summary ---
Author Organization [facility] Address [address] [facility] [address] [place] [address] Phone Care Team Providers Care Pigment Pusher Name Role Phone Cierra Rae PA-C Primary Care Provider [phone] Encounter Details Date Type Department Care Team (Late st Contact Info) Description 03/05/2025 Telephone [facility] [address] [facility] [address] [place] [address] Francheska Plaza [place] [address] [facility] [address] [place] [id number] Social History Tobacco Use Types Packs/Day Years [...] on file documented as of this encounter Miscellaneous Notes * Telephone Encounter - Francheska Plaza [place] - 03/05/2025 9:49 AM EDT Cierra Quintanilla from [facility] called . In regards of chari she's having worsening in her anemia . She is going to order a ct of abdomen and would like to know if you recommend anything ..Call back number is [phone] . There was a ultrasound done at [place] in getting the results now documented in this encounter Plan of Treatment Upcoming Encounters Date Type Department Care Team (Late st Contact Info) Description 08/05/2025 9:40 AM EDT Office Visit [facility] [address] [address] Edenilson Dyer MD [address] [address] documented as of this encounter Visit Diagnoses Not on filedocumented in this encounter Care Teams Pigment Pusher Relationship Specialty Start Date End Date Cierra Rae PA-C [address] [place] [address] PCP - General Internal Medicine 12/07/22 documented as of this encounter
--- OUTSIDE RECORDS SUMMARY | 2025-03-08 14:08 | XMS_ITS | Clinical Summary ---
Author Organization [facility] Address [address] [facility] [address] [place] [address] Phone Care Team Providers Care Petroleum Production Engineer Name Role Phone Cierra Rae PA-C Primary Care Provider [phone] Allergies Active Allergy Reactions Criticality Noted Date [...] Encounters Date Type Department Care Team Description 03/05/2025 Telephone [facility] [address] [facility] [facility] [address] [place] [phone] [address] [place] 01/31/2025 10:20 AM EST Office Visit [facility] [address] [facility] [address] [place] [phone] Edenilson Dyer MD Stage 3a chronic kidney disease (HCC) (Primary Dx); Hypokalemia; Hypertension; Hyperkalemia; Dyslipidemia; Atrophy of right kidney; Other acute kidney failure (HCC); Abdominal aortic aneurysm (HCC) 12/15/2024 Orders Only [facility] [place] [address] [place] [phone] Edenilson Dyer MD Stage 3a chronic kidney [...] Office Visit [facility] [address] [address] Edenilson Dyer MD [address] [address] Health Maintenance Due Date Last Done Comments Breast Cancer Screening 1954 Colorectal Cancer Screening: Annual FOBT 2003 Colorectal Cancer Screening: Colonoscopy 2003 Colorectal Cancer Screening: Sigmoidoscopy 2003 Pneumococcal Vaccine: 50+ Years (3 of 3 - PCV) 01/08/2021 01/08/2020, 05/15/2013 Influenza Vaccine (Season Ended) 2025 08/28/2017, 11/29/2016 Hepatitis B Vaccine Aged Out No longe [...] Creatinine, Ur 95.9 Not Estab. mg/dL [facility] Protein, Ur 23.2 Not Estab. mg/dL [facility] Urine Protein/Creati nine Ratio 242(H) 0 - 200 mg/g creat [facility] 12/11/2024 7:50 AM EST 12/11/2024 us Edenilson Dyer MD LAB URINE ORDERABLES Final Re sult [facility] [address] [place] [address] * Vitamin D 25 Hydroxy (12/11/2024 7:50 AM EST) Vitamin D, 25-OH, Total 34.8 30.0 - 100.0 ng/mL [facility] Comment: Vitamin D deficiency has been defined by the [place] of [employer] and an Endocrine Society practice guideline as a level of serum 25-OH vitamin D less than 20 ng/mL (1,2). The Endocrine Society went on to further define vitamin D insufficiency as a level between 21 and 29 ng/mL (2). 1. IOM ([place] of [employer]). 2010. Dietary reference ?? intakes for calcium and D. Kang [place]: The ?? National AcademAntVoice Press. 2. Tameka MF, Corazon NC, Jonathan OLSON, et al. ?? Evaluation, treatment, and prevention of vitamin D ?? deficiency: an Endocrine Society clinical practice ?? guideline. JCEM. 2010; 96(7):1911-30. 12/11/2024 7:50 AM EST 12/11/2024 us Edenilson Dyer MD LAB BLOOD ORDERABLES Final Re sult [facility] [address] [place] [address] * (ABNORMAL) CBC and Differential (12/11/2024 7:50 AM EST) WBC 6.8 3.4 - 10.8 x10E3/uL [facility] RBC 3.09(L) 3.77 - 5.28 x10E6/uL [facility] Hemoglobin 9.1(L) 11.1 - 15.9 g/dL [facility] Hematocrit 28.2(L) 34.0 - 46.6 % [facility] MCV 91 79 - 97 fL [facility] MCH 29.4 26.6 - 33.0 pg [facility] MCHC 32.3 31.5 - 35.7 g/dL [facility] RDW 13.5 11.7 - 15.4 % [facility] Platelets 324 150 - 450 x10E3/uL [facility] Neutrophils Relative 60 Not Estab. % [facility] Lymphocytes Relative 24 Not Estab. % [facility] Monocytes 9 Not Estab. % [facility] Eosinophils Relative 5 Not Estab. % [facility] Basophils Relative 2 Not Estab. % [facility] Neutrophils Absolute 4.1 1.4 - 7.0 x10E3/uL [facility] Lymphocytes Absolute 1.6 0.7 - 3.1 x10E3/uL [facility] Monocytes Absolute 0.6 0.1 - 0.9 x10E3/uL [facility] Eosinophils Absolute 0.4 0.0 - 0.4 x10E3/uL [facility] Basophils Absolute 0.1 0.0 - 0.2 x10E3/uL [facility] Immature Granulocytes 0 Not Estab. % [facility] Immature Grans (Absolute) 0.0 0.0 - 0.1 x10E3/uL [facility] 12/11/2024 7:50 AM EST 12/11/2024 Edenilson Dyer MD LAB BLOOD ORDERABLES [facility] [address] [place] [address] * (ABNORMAL) Uric Acid (12/11/2024 7:50 AM EST) Pathologist [facility] Uric Acid 7.8(H) 3.0 - 7.2 mg/dL [facility] Comment:Therapeutic target f or gout patients: <6.0 12/11/2024 7:50 AM EST 12/11/2024 Edenilson Dyer MD LAB BLOOD ORDERABLES Final Re sult [facility] [address] [place] [address] * Phosphorus (12/11/2024 7:50 AM EST) Pathologist [facility] Phosphorus 4.0 3.0 - 4.3 mg/dL [facility] 12/11/2024 7:50 AM EST 12/11/2024 Edenilson Dyer MD LAB BLOOD ORDERABLES Final Re sult Performing Organization Address City/[facility]/ZIP Co de Phone Number [facility] [address] [place] [address] * PTH, Intact (12/11/2024 7:50 AM EST) [facility] PTH 46 15 - 65 pg/mL [facility] 12/11/2024 7:50 AM EST 12/11/2024 Edenilson Dyer MD LAB BLOOD ORDERABLES Final Re sult Performing Organization Address [facility] Co de Phone Number [facility] [address] [place] [address] * Magnesium (12/11/2024 7:50 AM EST) Pathologist [facility] Magnesium 2.1 1.6 - 2.3 mg/dL [facility] 12/11/2024 7:50 AM EST 12/11/2024 Edenilson Dyer MD LAB BLOOD ORDERABLES Final Re sult Performing Organization Address City/[facility] Co de Phone Number [facility] [address] [place] [address] * (ABNORMAL) Lipid panel (12/11/2024 7:50 AM EST) [facility] Cholesterol 169 100 - 199 mg/dL [facility] Triglycerides 151(H) 0 - 149 mg/dL [facility] HDL 48 >39 mg/dL [facility] VLDL Cholesterol Audi 26 5 - 40 mg/dL [facility] LDL Calculated 95 0 - 99 mg/dL [facility] 12/11/2024 7:50 AM EST 12/11/2024 us Edenilson yDer MD LAB BLOOD ORDERABLES Final Re sult [facility] [address] [place] [address] * (ABNORMAL) Comprehensive Metabolic Panel (12/11/2024 7:50 AM EST) Glucose 92 70 - 99 mg/dL [facility] Bicarbonate (CO2) 21 20 - 29 mmol/L [facility] Calcium 9.7 8.7 - 10.3 mg/dL [facility] Total Bilirubin <0.2 0.0 - 1.2 mg/dL [facility] AST (SGOT) 19 0 - 40 IU/L [facility] BUN 25 8 - 27 mg/dL [facility] Creatinine 1.08(H) 0.57 - 1.00 mg/dL [facility] eGFR CKD-EPI CR 2020 55(L) >59 mL/min/1.7 3 [facility] BUN/Creatinine Ratio 23 12 - 28 [facility] Sodium 139 134 - 144 mmol/L [facility] Potassium 4.9 3.5 - 5.2 mmol/L [facility] Chloride 103 96 - 106 mmol/L [facility] Total Protein 7.2 6.0 - 8.5 g/dL [facility] Albumin 4.4 3.9 - 4.9 g/dL [facility] Globulin 2.8 1.5 - 4.5 g/dL [facility] Alkaline Phosphatase 80 44 - 121 IU/L [facility] ALT (SGPT) 18 0 - 32 IU/L [facility] 12/11/2024 7:50 AM EST 12/11/2024 us Edenilson Dyer MD LAB BLOOD ORDERABLES Final Re sult [facility] [address] [place] [address] from Last 3 Months Insurance Medicare [facility] Medicare [facility] Medicare Care Teams Petroleum Production Engineer Relationship Specialty Start Date End Date Cierra Rae PA-C [address] [place] [address] PCP - General Internal Medicine 12/07/22
--- OUTSIDE RECORDS SUMMARY | 2025-03-08 14:08 | XMS_ITS | Encounter Summary ---
Author Organization [facility], Address [address] [place] [address] Phone Care Team Providers Care Tree And Shrub Technician Name Role Phone Cierra Rae PA-C Primary Care Provider [phone] Encounter Details Date Type Department Care Team (Late st Contact Info) Description 12/07/2022 Documentation Only [facility], [address] [place] [address] Damion Dalton [place] [address] [place] [address] Social History Tobacco Use Types [...] Visit [facility] [address] [address] Edenilson Dyer MD [address] [address] documented as of this encounter Visit Diagnoses Not on filedocumented in this encounter Care Teams Tree And Shrub Technician Relationship Specialty Start Date End Date Cierra Rae PA-C [address] [place] [address] PCP - General Internal Medicine 12/07/22 documented as of this encounter
--- OUTSIDE RECORDS SUMMARY | 2025-03-08 14:08 | XMS_ITS | Clinical Summary ---
Author Organization [facility] Address [address] [place] [address] Care Team Providers Care Wound Specialist Name Role Phone Milagros Mcdonald MD Primary Care Provider [phone] Allergies Active Allergy Reactions Criticality Noted Date [...] DELIVERY; COMMENT: x 2 CHOLECYSTECTOMY 1982 PROCEDURE: [place] CHOLECYSTECTOMY APPENDECTOMY 1982 PROCEDURE: HISTORICAL APPENDECTOMY TONSILLECTOMY ? PROCEDURE: HISTORICAL TONSILLECTOMY OTHER SURGICAL HISTORY ? PROCEDURE: [place] SINUSOT SPHENOID W/MUCOSAL STRIPPING/RMVL POLYP Medical History [...] Maternal Grandfather Maternal Grandmother Mother Alive htn, [place], arthir itis Paternal Grandfather Paternal Grandmother Sister [...] Description 07/30/2025 8:00 AM EDT Ancillary Procedure [facility] [address] [place] [address] Health Maintenance Due Date Last [...] of Health Screening 10/27/2022 COVID-19 Vaccine ( season) 2024 Influenza Vaccine (Season Ended) 2025 09/19/2022, 09/07/2021, 08/25/2020, Additional history exists Hypertension/CHF/CAD Annual [...] Result * Hepatitis C Screening (02/12/2016) Pathologist [facility] Hepatitis C Screening Abstracted us Historical Provider HEALTH MAINTENANCE Final Result from Last 3 Months or Most Recently Relevant to Health Maintenance Insurance [facility] Care Teams Wound Specialist Relationship Specialty Start Date End Date Milagros Mcdonald MD PCP - General Internal Medicine 03/12/22
--- OUTSIDE RECORDS SUMMARY | 2025-03-08 14:08 | XMS_ITS | Encounter Summary ---
Author Organization [facility], Address [address] [place] [address] Phone Care Team Providers Care Restaurant Shift Leader Name Role Phone Cierra Rae PA-C Primary Care Provider [phone] Encounter Details Date Type Department Care Team (Late st Contact Info) Description 12/07/2022 Documentation Only [facility], [address] [place] [address] Damion Dalton [place] [address] [place] [address] Social History Tobacco Use Types [...] Visit [facility] [address] [address] Edenilson Dyer MD [address] [address] documented as of this encounter Visit Diagnoses Not on filedocumented in this encounter Care Teams Restaurant Shift Leader Relationship Specialty Start Date End Date Cierra Rae PA-C [address] [place] [address] PCP - General Internal Medicine 12/07/22 documented as of this encounter
--- OUTSIDE RECORDS SUMMARY | 2025-03-08 14:09 | XMS_ITS | Encounter Summary ---
Author Organization [facility], Address [address] [place] [address] Phone Care Team Providers Care Director Of Managed Care Name Role Phone Cierra Rae PA-C Primary Care Provider [phone] Encounter Details Date Type Department Care Team (Late st Contact Info) Description 12/07/2022 Documentation Only [facility], [address] [place] [address] Damion Dalton [place] [address] [place] [address] Social History Tobacco Use Types [...] Visit [facility] [address] [address] Edenilson Dyer [place] [address] [address] documented as of this encounter Visit Diagnoses Not on filedocumented in this encounter Care Teams Director Of Managed Care Relationship Specialty Start Date End Date Cierra Rae PA-C [address] [place] [address] PCP - General Internal Medicine 12/07/22 documented as of this encounter
== END ==
LOC: HO.CARD 13:47
PROVIDERS: PCP Physician Assistant Medical; Visit Provider Physician Assistant Medical
DX: I35.0 Nonrheumatic aortic (valve) stenosis (principal); R60.0 Localized edema
CPT/HCPCS: 93306

== ENCOUNTER → 2025-03-08 13:51 | Outpatient (BNV) | payer MEDICARE, SELFPAY | PROVIDERS: PCP Physician Assistant Medical; Visit Provider Internal Medicine Cardiovascular Disease | DX: I35.0 Nonrheumatic aortic (valve) stenosis (principal) | CPT/HCPCS: 93306 ==

== ENCOUNTER 2025-03-13 08:13 | Outpatient (REF) | payer MEDICARE, SELFPAY ==
--- OUTSIDE RECORDS SUMMARY | 2025-03-13 08:22 | XMS_ITS | Clinical Summary ---
Author Organization [facility] Address [address] [place] [address] Care Team Providers Care Recovery Analyst Name Role Phone Milagros Mcdonald MD Primary Care Provider [phone] Allergies Active Allergy Reactions Criticality Noted Date [...] DELIVERY; COMMENT: x 2 CHOLECYSTECTOMY 1982 PROCEDURE: [place] CHOLECYSTECTOMY APPENDECTOMY 1982 PROCEDURE: HISTORICAL APPENDECTOMY TONSILLECTOMY ? PROCEDURE: HISTORICAL TONSILLECTOMY OTHER SURGICAL HISTORY ? PROCEDURE: [place] SINUSOT SPHENOID W/MUCOSAL STRIPPING/RMVL POLYP Medical History [...] Maternal Grandfather Maternal Grandmother Mother Alive htn, [place], arthir itis Paternal Grandfather Paternal Grandmother Sister [...] Description 07/30/2025 8:00 AM EDT Ancillary Procedure [facility] [address] [place] [address] Health Maintenance Due Date Last [...] Recently Relevant to Health Maintenance Results * Annual BMP Blood Test (11/15/2019) [facility]ologist [facility] Annual BMP Blood Test Abstracted us Historical Provider MD HEALTH MAINTENANCE Final Result * (ABNORMAL) Lipid panel (10/15/2019) [facility] LDL/HDL Ratio 4 0 - 4 Triglycerides 193(A) 0 - 150 mg/dL Cholesterol 185 0 - 200 mg/dL HDL 44 >=40 mg/dL LDL Cholesterol 103(A) 0 - 100 mg/dL Blood Venous blood specimen / Unknown Historical Provider LAB BLOOD ORDERABLES Kanwal l Result * Hepatitis C Screening (02/12/2016) Hepatitis C Screening Abstracted Historical Provider HEALTH MAINTENANCE Final Result from Last 3 Months or Most Recently Relevant to Health Maintenance Insurance MEDICARE [facility] Care Teams Recovery Analyst Relationship Specialty Start Date End Date Milagros Mcdonald MD PCP - General Internal Medicine 03/12/22
--- OUTSIDE RECORDS SUMMARY | 2025-03-13 08:22 | XMS_ITS | Encounter Summary ---
Author Organization [facility], Address [address] [place] [address] Phone Care Team Providers Care Button Tacker Name Role Phone Cierra Rae PA-C Primary Care Provider [phone] Encounter Details Date Type Department Care Team (Late st Contact Info) Description 12/07/2022 Documentation Only [facility], [address] [place] [address] Damion Dalton [place] [address] [place] [address] Social History Tobacco Use Types [...] Visit [facility] [address] [address] Edenilson Dyer MD [address] [address] documented as of this encounter Visit Diagnoses Not on filedocumented in this encounter Care Teams Button Tacker Relationship Specialty Start Date End Date Cierra Rae PA-C [address] [place] [address] PCP - General Internal Medicine 12/07/22 documented as of this encounter
--- OUTSIDE RECORDS SUMMARY | 2025-03-13 08:22 | XMS_ITS | Encounter Summary ---
Author Organization [facility] [place], Address [address] [place] [address] Phone Care Team Providers Care Booker Name Role Phone Cierra Rae PA-C Primary Care Provider [phone] Encounter Details Date Type Department Care Team (Late st Contact Info) Description 12/07/2022 Documentation Only [facility] [place], [address] [place] [address] Damion Dalton [place] [address] [place] [address] Social History Tobacco Use [...] Visit [facility] [address] [address] Edenilson Dyer MD [address] [address] documented as of this encounter Visit Diagnoses Not on filedocumented in this encounter Care Teams Booker Relationship Specialty Start Date End Date Cierra Rae PA-C [address] [place] [address] PCP - General Internal Medicine 12/07/22 documented as of this encounter
--- OUTSIDE RECORDS SUMMARY | 2025-03-13 08:22 | XMS_ITS | Clinical Summary ---
Author Organization [facility] Address [address] [facility] [address] [place] [address] Phone Care Team Providers Care Funeral Service Manager Name Role Phone Cierra Rae PA-C Primary Care Provider [phone] Allergies Active Allergy Reactions Criticality Noted Date [...] 03/05/2025 Telephone [facility] [address] [facility] [address] [place] [phone] [address] [place] 01/31/2025 10:20 AM EST Office Visit [facility] [address] [facility] [address] [place] [address] Edenilson Dyer MD Stage 3a chronic kidney disease (HCC) (Primary Dx); Hypokalemia; Hypertension; Hyperkalemia; Dyslipidemia; Atrophy of right kidney; Other acute kidney failure (HCC); Abdominal aortic aneurysm (HCC) 12/15/2024 Orders Only [facility] [address] [place] [phone] Edenilson Dyer MD Stage 3a chronic kidney [...] Visit [facility] [address] [address] Edenilson Dyer MD [address] [address] Health Maintenance Due Date Last Done Comments Breast Cancer Screening 1955 Colorectal Cancer Screening: Annual FOBT 2003 Colorectal Cancer Screening: Colonoscopy 2003 Colorectal Cancer Screening: Sigmoidoscopy 2003 Pneumococcal Vaccine: 50+ Years (3 of 3 - PCV) 01/08/2021 01/08/2020, 05/15/2013 Influenza Vaccine (Season Ended) 2025 08/28/2017, 11/29/2016 Pneumococcal Vaccine: Peds ( 0 to 5 Years) and At-Risk Patients (6 to 49 Years) Discontinued 01/08/2020, 05/15/2013 Hepatitis B Vaccine Aged Out No longe r eligible based on patient's age to complete this topic Insurance Medicare [facility] Medicare [facility] Medicare Care Teams Funeral Service Manager Relationship Specialty Start Date End Date Cierra Rae PA-C [address] [place] [address] PCP - General Internal Medicine 12/07/22
--- OUTSIDE RECORDS SUMMARY | 2025-03-13 08:22 | XMS_ITS | Encounter Summary ---
Author Organization [facility], Address [address] [place] [address] Phone Care Team Providers Care Hospital Intern Name Role Phone Cierra Rae PA-C Primary Care Provider [phone] Encounter Details Date Type Department Care Team (Late st Contact Info) Description 12/07/2022 Documentation Only [facility], [address] [place] [address] Damion Dalton [place] [address] [place] [address] Social History Tobacco Use Types [...] Visit [facility] [address] [address] Edenilson Dyer MD [address] [address] documented as of this encounter Visit Diagnoses Not on filedocumented in this encounter Care Teams Hospital Intern Relationship Specialty Start Date End Date Cierra Rae PA-C [address] [place] [address] PCP - General Internal Medicine 12/07/22 documented as of this encounter
--- OUTSIDE RECORDS SUMMARY | 2025-03-13 08:22 | XMS_ITS | Data Portability ---
Author Organization [place] - [facility], [facility] Address [address] [place] [phone] Care Team Providers Care Veneer Clipper Name Role Phone SAMUEL MAGDALENO Primary Care Provider [phone] Assessment Encounter Date Assessment Date Assessment LastModified by Organization Details LastModified Time 12/17/2021 12/17/2021 In addition to MDM documentation, add relevant primary/secondary medical conditions and status of each condition as diagnoses using the '+' above SSMILE Score Risk Stratification Table (Risk Score from Social History) High Risk Area for Hospital Readmission Risk Level Plan S ymptoms? ? ? Does patient have ongoing symptoms? Low Risk ? ? ? S killed Needs? ? ? Does patient have unaddressed skilled needs? (PT/OT/medical receptionist assistant?) Low Risk If high risk, refer to Home Health. M edication (reconciliation and management) Low Risk ? ? ? I nformation (understanding of disease/treatment /red flags) Low Risk ? ? ? L inked up (access to healthcare, food, social support) Low Risk Resources available at [employer] E ngagement (patient or caregiver engaged in care plan) Low Risk ? ? ? FOR ANY HIGH RISK AREAS SCHEDULE PCP OR [facility] FOLLOW UP IN 24-72 HOURS TO PREVENT HOSPITAL READMISSION, IF APPROPRIATE Overview/History: COVID positive 11/23 with ongoing symptoms including fatigue, malaise and loss of appetite. Seen in ED yesterday NO YUNG and tolerating fluids at discharge. FU today for reassessment. Exam: Alert and oriented, IN NAD with steady gait. NO hypoxemia, NO increased WOB, BBS rales at bases. CARD with systolic murmur (history of same) 01/31. Tolerating PO fluids without difficulty DDx considered, but not limited to: YUNG, dehydration, COVID pneumonia with decompensation Work up/Results: Plan/Discussion: Pt has had improvement of symptoms slightly since ED visit yesterday. She continues to tolerate fluids and food After discussing this with patient, discussed options for care. Ptdefers labs at this time as she feels she is improving. She was advised to seek re-assessment for any worsening symptoms. Also discussed her concerns to want the vaccine after she recovers from this illness. Advised to seek PCP and review CDC guidelines once she has recovered from this. Pt left sitting on couch, resp easy, alert and speaking with her . In order to obtain further information and compare any laboratory results/values, I have accessed patient records on the [employer]. This information was pertinent in my medical decision making today. [email or web address] Not available 12/17/2021 17:24:02 Plan of Treatment Reminders Order Date Submit Date Provider Last Modified By Organization Details Last Modified Time Details Appointments None record ed. Lab None record ed. Referral None record ed. Procedures None record ed. Surgeries None record ed. Imaging None record ed. Medication Orders None record ed. Patient TargetsNo targets recorded. Patient Instructions Encounter Date Encounter Id Patient Instructions Last Modified By Organization Details Last Modified Time 12/17/2021 [id number] You have a follo w up appointment scheduled with your on . A Follow up appointment has been scheduled with [facility] on . In the morning of this appointment, the [facility] Care team will call you and let you know what window of time the team will arrive. If you are not feeling well and you feel you need to be evaluated urgently, please contact [facility] at the phone number printed on this paper to access care. Thank you for your visit with [facility] today. You were seen as a follow up after your visit to the Emergency Room for [ ]. You have a follow up appointment with . If you develop any new or worsening symptoms and need after hours care, please go to the nearest ER and/or call 911. If you have additional concerns or develop a change in your condition between 8am-10pm, please call [facility] at the number listed on the top of your paperwork to help navigate your care. [email or web address] Not available 12/17/2021 17:11:07 Reason for Referral None Reported. Procedures Surgical History Date Name Laterality Status Provider Name and Address Organization Details Recorded Time 022 Medication Review completed Monika MEGHA Khan, [place], [address], [place] [facility] 12/17/2021 17:11:08 Cholecystectomy completed Monika Khan NP [address] [place], [address], [place] [facility] 12/17/2021 17:02:55 Imaging Results None recorded. Procedure Notes None recorded. Medical Equipment None Reported. Allergies Allergen ID Allergen Name Allergen Category Reaction Reaction Severity Criticality Documentation Date Start Date Code Code System Note Provider Name and Address Organization Details Recorded Time 845084 Substance with sulfonami de structure and antibacte rial mechanism of action (substanc e) medicatio n Not available Not available Not available 12/17/2021 64146 8003 SNOMED Monika Khan NP [address] [place], [address], [place] [facility] 17:00:43 988336 iodine medicatio n Not available Not available Not available 12/17/2021 5933 RxNorm Monika Khan NP [address] [place], [address], [place] [facility] 2 17:00:53 Medications Name Sig Start Date Stop Date Status Note LastModified by Organization Details LastModified Time lisinopril 20 mg-hydrochloro thiazide 12.5 mg tablet active Not Available Not Available No t Available ondansetron HCl 4 mg tablet active Not Available Not Available Not Available amlodipine 2.5 mg tablet active Not Available Not Available No t Available amlodipine 5 mg tablet active Not Available Not Available No t Available simvastatin 40 mg tablet active Not Available Not Available No t Available Vitals None Recorded Social History None recorded. Functional Status None recorded. Mental Status None recorded. Family History Nothing Reported. Medical History Condition Response Coronary Artery Disease N COPD N Depression N Hypothyroidism N A-fib N Cancer N Stroke N High Cholesterol Y Rheumatoid Arthritis N Kidney Disease N Parkinson's Disease N Diabetes N CHF N Dementia N Asthma N Pulmonary Embolism N Hypertension Y Osteoporosis N Gynecological HistoryNo gynecological history recorded. Obstetrics History GPAL:G 0 P 0 0 0 0 Past Encounters Encounter ID Performer Location Encounter Start Date Encounter Closed Date Diagnosis/Indication Diagnosis SNOMED-CT Code Diagnosis ICD10 Code Diagnosis Note [id number] Monika Khan NP [facility] [address] [place] [address] 12/17/2021 16:59:34 12/19/2021 21:42:39 COVID-19 638444682 U07.1 Health Concerns Section Related Observation LastModified by Organization Detai ls LastModified Time None Recorded Concern Status LastModified by Organization Details LastModified Time None Recorded Advance Directives Directive None Recorded Payers Encounter Date Sequence Insurance Name Policy Number Policy Johnson Covered Member ID Johnson Member ID Guarantor Name 12/17/2021 1 [place] B-[place]: [employer] SERVICES Carmelina Gonzalez [id number] Carmelina Gonzalez Notes Date Note Type Note Provider Name and Address Organization Details Recorded Time 12/17/2021 text/html 66 year-old female with history of HTN, HLD who is being evaluated in her home for post ED follow up for COVID symptoms.Pt was diagnosed with COVID on 11/23. She has been having malaise, fatigue and cough for the past 3 weeks. She has had no appetite or desire to eat or drink. She had been having dizziness and lightheadedness. Seen about 2 weeks ago in ED, YUNG noted and given fluids with DC home. [place] worse again yesterday. Went to the ED and was given additional fluids. Her CR was 1.2 which was much better than her last ED visit at 2.1.She was tolerating PO food and fluids at discharge. She has continued with this and continues to drink water and fluids. She has not had any shortness of breath or increased work of breathing. She notes that her breathing only becomes hard when she walks and talks at the same time. Her pulse oximetry readings have not dropped below 94% at home.She continues to have fatigue though it seems just slightly better today.She denies nausea, vomiting. She has been having BMs and urinary patterns have been constant. Monika Khan NP [address], [place], [address], [place] [facility] 12/17/2021 17:24:22 OBGyn Episode No OBEpisode recorded.
[2025-03-13 11:23] LABS: MANUAL DIFF FLAG NO
[2025-03-13 11:31] LABS: B Type Natriuretic Peptide 75 pg/mL (<100)
[2025-03-13 11:32] LABS: Basophils Absolute Auto 0.1 X10*3/uL (0.0-0.2); Basophils Percent Auto 1.8 % (0-2); Eosinophils Absolute Auto 0.2 X10*3/uL (0.0-0.4); Eosinophils Percent Auto 4.6 % (0-4); Hematocrit 26.9 % (37.0-47.0); Hemoglobin 8.4 g/dl (12.0-16.0); Imm Gran Abs Auto 0.01 X10*3/uL (0.00-0.03); Imm Gran Pct Auto 0.2 % (0.0-0.4); Immature Retic Fraction 26.8 % (3.0-15.9); Lymphocytes Absolute Auto 1.3 X10*3/uL (1.2-4.9); Lymphocytes Percent Auto 25.3 % (20-40); Mean Corpuscular HGB Conc 31.2 g/dl (31.0-35.0); Mean Corpuscular Hemoglobin 27.9 pg (27.0-33.0); Mean Corpuscular Volume 89.4 fL (80.0-98.0); Mean Platelet Volume 9.7 fL (9.4-12.3); Monocytes Absolute Auto 0.5 X10*3/uL (0.1-1.2); Monocytes Percent Auto 9.4 % (2-11); Neutrophils Absolute Auto 2.9 x10*3/uL (2.0-8.3); Neutrophils Percent Auto 58.7 % (45-73); Platelet Count 309 X10*3/uL (160-400); Red Blood Count 3.01 X10*6/uL (4.20-5.50); Red Cell Distribution Width 14.4 % (11.0-16.0); Retic HGB Equivalent 28.1 pg (30.0-35.0); Reticulocyte Percent 3.1 % (0.5-1.8); Reticulocytes Absolute 0.095 X10*6/uL (0.026-0.095)
[2025-03-13 11:44] LABS: Anion Gap 14 (12-20); Blood Urea Nitrogen 23 mg/dL (9-16); Calcium 9.5 mg/dL (8.4-10.2); Carbon Dioxide 21 mmol/L (22-29); Chloride 109 mmol/L (96-108); Estimated Glomerular Filt Rate 55; Glucose Random 88 mg/dL (60-115); Iron 137 mcg/dL (30-160); Percent Iron Saturation 37 % (15-50); Potassium 4.3 mmol/L (3.3-5.1); Sodium 140 mmol/L (135-145); Total Iron Binding Capacity 366 mcg/dL (228-428); Unsaturated Iron Binding 229 ug/dL
[2025-03-13 12:00] LABS: Ferritin 61 ng/mL (10-250)
== END 2025-03-13 08:14 | disposition home or self-care (01) ==
LOC: HO.WFDLDS 08:13
PROVIDERS: Visit Provider Physician Assistant Medical
DX: E11.9 Type 2 diabetes mellitus without complications (principal); R60.0 Localized edema; D50.9 Iron deficiency anemia, unspecified
CPT/HCPCS: 36415; 80048; 82728; 83540; 83880; 85025; 85045

== ENCOUNTER 2025-03-19 13:52 | Outpatient (REF) | payer MEDICARE, SELFPAY ==
--- NOTE | ~2025-03-19 | CT_ITS ---
EXAMINATION: CT ABDOMEN AND PELVIS WITH CONTRAST CLINICAL INFORMATION: Unspecified hydronephrosis. COMPARISON: None available. TECHNIQUE: Multidetector volumetric images were obtained from the superior aspect of the liver through the pubic symphysis following administration 85 mL of Omnipaque 350 intravenous contrast. Sagittal and coronal reformatted images were obtained on the technologist's workstation. Oral contrast: Yes This CT examination was performed using dose optimization techniques as appropriate, variously including the following: *Automated exposure control *Adjustment of mA and/or kV according to patient size (this includes techniques or standardized protocols for targeted exams where dose is matched to indication/reason for exam; i.e. extremities or head) *Use of iterative reconstruction technique FINDINGS: LUNG BASES: Lung bases demonstrate subpleural reticular changes, possibly atelectasis although early interstitial lung disease is a consideration. There is mild cardiac enlargement. There are no effusions. The GE junction appears normal. LIVER, GALLBLADDER, AND BILIARY TREE: The liver is diffusely decreased in attenuation consistent with fatty infiltration. No suspicious lesion. There is been a cholecystectomy. No intra or extrahepatic biliary dilatation of significance. PANCREAS: Unremarkable. SPLEEN: There are 2 simple cystic foci in the spleen, the larger measuring 1.6 cm near the hilum, nonspecific but consistent with benign entities. Spleen otherwise normal. ADRENAL GLANDS: Unremarkable. KIDNEYS AND URETERS: Right kidney is diffusely atrophic cyst posteriorly. There is no hydronephrosis or mass. The left kidney is compensatorily hypertrophied. There is a 3 mm nonobstructing calculus in the midpole, and there is cortical scarring of the upper pole. There is mild fullness of the collecting system, with an abrupt change at the UPJ region suggestive of a chronic UPJ obstruction. The remainder of the ureter is normal in caliber into the bladder. There are no calculi in the ureters. No ureteral dilatation. BLADDER: Unremarkable. GASTROINTESTINAL TRACT: There is moderate diverticulosis of the descending and sigmoid colon. There is no acute inflammation identified. The remainder of the colon appears normal. The appendix is not seen and there is no evidence of appendicitis. The small bowel is normal in caliber and course. There is no small bowel abnormality identified. The stomach is somewhat decompressed. The duodenum has a normal course. ABDOMINAL WALL: There is a large left spigelian type hernia containing fat and loops of small bowel. This is a large neck without evidence of incarceration present. LYMPH NODES: Normal. VASCULAR: There has been a aortobiiliac bypass. The bypass graft appears widely patent. The [place] aorta is heavily calcified and appears occluded. There is no evidence of venous thrombosis. PELVIC VISCERA: The uterus and adnexa are unremarkable. OSSEOUS STRUCTURES: There is a moderate right convex thoracolumbar scoliosis with moderate degenerative spondylosis. No suspicious lytic or blastic bone lesions are detected. CT/CT abdomen pelvis w IV con IMPRESSION: 1. No acute findings in the abdomen or pelvis. No obstructive uropathy identified. 2. Atrophy of the right kidney. Scarring of the left kidney. Nonobstructing tiny calculi left kidney. 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 3. There has been prior aortobiiliac bypass. The graft is widely patent 4. Large left abdominal wall spigelian type hernia. 5. Mild diffuse fatty infiltration of the liver. There has been a cholecystectomy. 6. Subpleural reticular changes in the lung bases, possibly atelectasis although early interstitial disease is not excluded. 7. See the body the report for additional ancillary findings. Electronically signed by: Topher Keating MD 03/19/2025 04:22 PM EDT
[2025-03-19] MEDS: iohexoL 350 MG/ML 75 ML INFUS..BTL 85 ML IV (15:11)
--- OUTSIDE RECORDS SUMMARY | 2025-03-19 16:34 | XMS_ITS | Encounter Summary ---
Author Organization [facility], Address [address] [place] [address] Phone Care Team Providers Care Award Clerk Name Role Phone Cierra Rae PA-C Primary Care Provider Encounter Details Date Type Department Care Team (Late st Contact Info) Description 12/07/2022 Documentation Only [facility], [address] [place] [address] Damion Dalton [place] [address] [place] [address] Social History Tobacco Use Types [...] [facility] [address] [address] Edenilson Dyer MD [address] [address] documented as of this encounter Visit Diagnoses Not on filedocumented in this encounter Care Teams Award Clerk Relationship Specialty Start Date End Date Cierra Rae PA-C [address] [place] [phone] PCP - General Internal Medicine 12/07/22 documented as of this encounter
--- OUTSIDE RECORDS SUMMARY | 2025-03-19 16:34 | XMS_ITS | Encounter Summary ---
Author Organization [facility], Address [address] [place] [address] Phone Care Team Providers Care Side Stapler Name Role Phone Cierra Rae PA-C Primary Care Provider [phone] Encounter Details Date Type Department Care Team (Late st Contact Info) Description 12/07/2022 Documentation Only [facility], [address] [place] [address] Damion Dalton [place] [address] [place] [address] Social History Tobacco Use Types [...] [facility] [address] [address] Edenilson Dyer MD [address] [address] documented as of this encounter Visit Diagnoses Not on filedocumented in this encounter Care Teams Side Stapler Relationship Specialty Start Date End Date Cierra Rae PA-C [address] [place] [phone] PCP - General Internal Medicine 12/07/22 documented as of this encounter
--- OUTSIDE RECORDS SUMMARY | 2025-03-19 16:34 | XMS_ITS | Encounter Summary ---
Author Organization [facility], Address [address] [place] [address] Phone Care Team Providers Care Hadoop Admin Name Role Phone Cierra Rae PA-C Primary Care Provider [phone] Encounter Details Date Type Department Care Team (Late st Contact Info) Description 12/07/2022 Documentation Only [facility], [address] [place] [address] Damion Dalton [place] [address] [place] [address] Social History Tobacco Use Types [...] Visit [facility] [address] [address] Edenilson Dyer MD [address] [address] documented as of this encounter Visit Diagnoses Not on filedocumented in this encounter Care Teams Hadoop Admin Relationship Specialty Start Date End Date Cierra Rae PA-C [address] [place] [phone] PCP - General Internal Medicine 12/07/22 documented as of this encounter
--- OUTSIDE RECORDS SUMMARY | 2025-03-19 16:34 | XMS_ITS | Clinical Summary ---
Author Organization [facility] Address [address] [facility] [address] [place] [address] Phone Care Team Providers Care Manager Enterprise Content Management Name Role Phone Cierra Rae PA-C Primary Care Provider [phone] Allergies Active Allergy Reactions Criticality Noted Date [...] 03/05/2025 Telephone [facility] [address] [place] [phone] [address] [place] 01/31/2025 10:20 AM EST Office Visit [facility] [address] [address] Edenilson Dyer MD Stage 3a chronic kidney disease (HCC) (Primary Dx); Hypokalemia; Hypertension; Hyperkalemia; Dyslipidemia; Atrophy of right kidney; Other acute kidney failure (HCC); Abdominal aortic aneurysm (HCC) from Last 3 Months Family History [...] Visit [facility] [address] [phone] Edenilson Dyer MD [address] [address] Health Maintenance Due Date Last [...] age to complete this topic Insurance Medicare [facility] Medicare [facility] Medicare Care Teams Manager Enterprise Content Management Relationship Specialty Start Date End Date Cierra Rae PA-C [address] [place] [address] PCP - General Internal Medicine 12/07/22
--- OUTSIDE RECORDS SUMMARY | 2025-03-19 16:34 | XMS_ITS | Clinical Summary ---
Author Organization [facility] Address [address] [place] [address] Care Team Providers Care Supervisor Ordnance Truck Installation Name Role Phone Milagros Mcdonald MD Primary Care Provider [phone] Allergies Active Allergy Reactions Criticality Noted Date [...] DELIVERY; COMMENT: x 2 CHOLECYSTECTOMY 1982 PROCEDURE: TN CHOLECYSTECTOMY APPENDECTOMY 1982 PROCEDURE: HISTORICAL APPENDECTOMY TONSILLECTOMY ? PROCEDURE: HISTORICAL TONSILLECTOMY OTHER SURGICAL HISTORY ? PROCEDURE: TN SINUSOT SPHENOID W/MUCOSAL STRIPPING/RMVL POLYP Medical History [...] Maternal Grandfather Maternal Grandmother Mother Alive htn, [place], arthir itis Paternal Grandfather Paternal Grandmother Sister [...] Description 07/30/2025 8:00 AM EDT Ancillary Procedure [facility] [address] [place] [address] Health Maintenance Due Date Last [...] * Annual BMP Blood Test (11/15/2019) Pathologist [facility] Annual BMP Blood Test Abstracted us Historical Provider MD HEALTH MAINTENANCE Final Result * (ABNORMAL) Lipid panel (10/15/2019) [facility] LDL/HDL Ratio 4 0 - 4 [...] Recently Relevant to Health Maintenance Insurance MEDICARE [facility] Care Teams Supervisor Ordnance Truck Installation Relationship Specialty Start Date End Date Milagros Mcdonald MD PCP - General Internal Medicine 03/12/22
--- OUTSIDE RECORDS SUMMARY | 2025-03-19 16:35 | XMS_ITS | Data Portability ---
Author Organization [place] - [facility], [facility] Address [address] [place] [phone] Care Team Providers Care Premix Operator Concentrate Name Role Phone SAMUEL MAGDALENO Primary Care Provider Assessment Encounter Date Assessment Date Assessment LastModified [...] ? Does patient have unaddressed skilled needs? (PT/OT/doormaker?) Low Risk If high risk, refer to Home Health. M edication (reconciliation and management) Low Risk ? ? ? I nformation (understanding of disease/treatment /red flags) Low Risk ? ? ? L inked up (access to healthcare, food, social support) Low Risk Resources available at [employer] E ngagement (patient or caregiver engaged in [...] I have accessed patient records on the [employer]. This information was pertinent in my medical decision making today. [email or web address] Not available 12/17/2021 17:24:02 Plan of Treatment [...] By Organization Details Last Modified Time 12/17/2021 [id number] You have a follo w up appointment scheduled with your on . A Follow up appointment has been scheduled with [facility] on . In the morning of this appointment, the [facility] Care team will call you and let you know what window of time the team will arrive. If you are not feeling well and you feel you need to be evaluated urgently, please contact [facility] at the phone number printed on this paper to access care. Thank you for your visit with [facility] today. You were seen as a follow [...] in your condition between 8am-10pm, please call [facility] at the number listed on the top of your paperwork to help navigate your care. [email or web address] [id number] Not available 12/17/2021 17:11:07 Reason for Referral None Reported. Procedures Surgical History Date Name Laterality Status Provider Name and Address Organization Details Recorded Time 022 Medication Review completed Monika MEGHA Khan, [place], [address], [place] [facility] 12/17/2021 17:11:08 Cholecystectomy completed Monika Khan NP [address] [place], [address], [place] [facility] 12/17/2021 17:02:55 Imaging Results None recorded. Procedure Notes None recorded. Medical Equipment None Reported. Allergies Allergen ID Allergen Name Allergen Category Reaction Reaction Severity Criticality Documentation Date Start Date Code Code System Note Provider Name and Address Organization Details Recorded Time 944682 Substance with sulfonami de structure and antibacte rial mechanism of action (substanc e) medicatio n Not available Not available Not available 12/17/2021 26338 8003 SNOMED Monika Khan NP [address] [place], [address], [place] [facility] 17:00:43 411940 iodine medicatio n Not available Not available Not available 12/17/2021 5933 RxNorm Monika Khan NP [address] [place], [address], [place] [facility] 2 17:00:53 [...] History Nothing Reported. Medical History Condition Response Diabetes N Coronary Artery Disease N CHF N Parkinson's Disease N Cancer N Stroke N Dementia N Asthma N Hypothyroidism N Depression N COPD N High Cholesterol Y Rheumatoid Arthritis N Pulmonary Embolism N Hypertension Y A-fib N Osteoporosis N Kidney Disease N Gynecological HistoryNo gynecological history recorded. Obstetrics History GPAL:G 0 P 0 0 0 0 Past Encounters Encounter ID Performer Location Encounter Start Date Encounter Closed Date Diagnosis/Indication Diagnosis SNOMED-CT Code Diagnosis ICD10 Code Diagnosis Note [id number] Monika Khan NP [facility] [address] [place] [address] 12/17/2021 16:59:34 12/19/2021 21:42:39 COVID-19 [id number] U07.1 Health Concerns Section Related Observation LastModified by Organization Detai ls LastModified Time None Recorded Concern Status LastModified by Organization Details LastModified Time None Recorded Advance Directives Directive None Recorded Payers Encounter Date Sequence Insurance Name Policy Number Policy Johnson Covered Member ID Johnson Member ID Guarantor Name 12/17/2021 1 [place]IC[place] B-[place]: [employer] Carmelina Gonzalez [id number] Carmelina Gonzalez Notes Date Note Type [...] noted and given fluids with DC home. [place] worse again yesterday. Went to the ED [...] constant. Monika Khan NP [address], [place], [address], [place] [facility] 12/17/2021 17:24:22 OBGyn Episode No OBEpisode recorded.
== END 2025-03-19 13:53 | disposition home or self-care (01) ==
LOC: HO.CT 13:52
PROVIDERS: PCP Physician Assistant Medical; Visit Provider Physician Assistant Medical
DX: N13.30 Unspecified hydronephrosis (principal); R39.89 Other symptoms and signs involving the genitourinary system; D50.9 Iron deficiency anemia, unspecified
CPT/HCPCS: 74177; Q9967

== ENCOUNTER → 2025-03-19 13:54 | Outpatient (BNV) | payer MEDICARE, SELFPAY | PROVIDERS: PCP Physician Assistant Medical; Visit Provider Radiology Diagnostic Radiology | DX: N26.1 Atrophy of kidney (terminal) (principal); N20.0 Calculus of kidney; K43.9 Ventral hernia without obstruction or gangrene | CPT/HCPCS: 74177 ==

== ENCOUNTER 2025-04-15 09:53 | Outpatient (AMB) | payer MEDICARE, SELFPAY ==
--- NOTE | 2025-04-15 09:57 | MHC.OFFVIS ---
Intake Visit Reasons: Unspecified hydronephrosis Intake Note: Pt presents to the office today as a new patient for unspecified hydronephrosis. Urology Meds:None Allergies sulfadiazine Allergy (Intermediate, Verified 04/15/25 13:37) Rash rosuvastatin Adverse Reaction (Mild, Verified 04/15/25 13:37) Nausea betadine Allergy (Mild, Uncoded 04/15/25 13:37) Rash doxazosin Allergy (Unknown, Uncoded 04/15/25 13:37) Unknown zetia Allergy (Unknown, Uncoded 04/15/25 13:37) Unknown amlodipine Adverse Reaction (Mild, Uncoded 04/15/25 13:37) Abdominal Pain chlorthalidone Adverse Reaction (Mild, Uncoded 04/15/25 13:37) Abdominal Pain Medication List - Last Reconciled 04/15/25 by ANNIA Naqvi- aspirin 81 mg PO DAILY barium sulfate 2.1%(w/v),2.0%(w/w) Follow instructions per radiology. cetirizine (Zyrtec) 10 mg PO DAILY PRN cholecalciferol (vitamin D3) 50 mcg PO DAILY cyanocobalamin (vitamin B-12) 1,000 mcg PO DAILY esomeprazole magnesium (Nexium 24HR) 20 mg PO DAILY ferrous gluconate 324 mg PO DAILY 90 days fluticasone furoate 27.5 mcg/actuation (Flonase Sensimist) 2 sprays intranasal DAILY hydralazine 25 mg PO TID 90 days simvastatin 40 mg PO BEDTIME HPI Comments Details: Anna is a very pleasant 70-year-old female patient of Dr. Rae. She has a past medical history of aortic aneurysm, nephrolithiasis, abdominal wall hernia, bilateral hydronephrosis, lower extremity edema, IBS, aortic stenosis, iron deficiency anemia, H pylori, chronic kidney disease, GERD, coronary artery stenosis, and PAD. She presents to the office today as a new patient for atrophic of the right kidney and probable mild chronic left sided UPJ obstruction. In discussion with the patient today she discusses having followed up with a vascular surgeon at [facility] and underwent a 10 hour surgery 2 years ago for and underwent aortic endarterectomy and aortobifemoral bypass with reimplantation of her left renal artery 04/06/2023. Her postoperative course was complicated by an infected seroma of her thoracoabdominal incision which was evacuated on 04/29/2023. She is followed by Dr. Jenkins. She also discusses following up with Dr. Martinez for her chronic kidney disease. We discussed most recent CT results 03/22 noting no acute findings in the abdomen or pelvis. No obstructive uropathy identified. Atrophic of the right kidney. Scarring of the left kidney. Nonobstructing tiny calculi measuring 3 mm in the left kidney. 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 She reports upon findings on CT she followed up with Dr. Jenkins her vascular surgeon who did not believe any further intervention was needed. We did discuss potential causes of UPJ obstruction, nephrolithiasis, and atrophic kidney. We discussed further workup to include nuclear renal scan and labs however patient would like to continue with surveillance monitoring as she does not believe this is a new finding for her. She discusses her main concern at this time is following up with a general surgeon regarding Large left abdominal wall spigelian type hernia that was also noted on recent CT. She does report noting episodes of urinary urgency and frequency however feels these symptoms are intermittent in self resolving. In office urinalysis results reviewed with the patient today. She denies hematuria, dysuria, foul smelling urine, changes to urinary stream, flank pain, fever, and or chills. She is happy with her current voiding parameters. BUN: 02/15 21, 08/18 23, 08/21 26, 02/19 28, 03/22 21, 03/22 23 Creatinine: 02/15 1.19, 08/18 1.18, 08/21 1.26, 02/19 1.00, 03/22 0.98, 03/22 0.99 [facility] Medical History Nephrolithiasis Hepatic steatosis Abdominal wall hernia Bilateral hydronephrosis Lower extremity edema Sensation of pressure in bladder area Urinary urgency Obesity with serious comorbidity Bilateral knee pain Bilateral hand pain History of acute renal failure IBS (irritable bowel syndrome) Aortic stenosis IDALMIS (iron deficiency anemia) Hyperlipidemia LDL goal <70 History of Helicobacter pylori infection CKD stage 3a, GFR 45-59 ml/min GERD (gastroesophageal reflux disease) Carotid artery stenosis Renovascular hypertension PAD (peripheral artery disease) Acute blood loss anemia Abdominal aortic aneurysm (AAA) Surgical History H/O vascular surgery H/O section H/O sinus surgery History of appendectomy History of cholecystectomy Family History Mother Cancer Heart disease Hyperlipidemia Hypertension Father Hypertension TIA (transient ischemic attack) Sister Heart disease Hypertension Maternal Grandmother Diabetes mellitus Maternal Grandfather Diabetes mellitus Paternal Grandmother Diabetes mellitus Paternal Grandfather Diabetes mellitus Social History [facility] Alcohol intake: former Patient Tobacco Use Status: Former Tobacco user Tobacco use type: Cigarette Cigarette Packs Per Day: 0.5 Years Smoked: 30 e-Cigarette/Vaping Use: Never Used Second Hand Smoke Exposure: No service: No Current occupational status: retired Current occupational exposures/hazards: No Cognitive needs: No Hearing needs: No Vision needs: No Review of Systems Eyes Reports no additional complaints ENT Reports no additional complaints Card Reports as per HPI Resp Reports no additional complaints GI Reports as per HPI Reports as per HPI Musc Reports as per HPI Neuro Reports no additional complaints Psych Reports no additional complaints Endo Reports no additional complaints Lyle/Lymph Reports no additional complaints Aller/Immun Reports no additional complaints Physical Exam Const General: cooperative, comfortable, no acute distress, well developed, alert and awake Orientation/consciousness: patient oriented x3 Limitations: no limitations HEENT Head: Yes normal to inspection, Yes normocephalic and Yes atraumatic Ears: hearing grossly normal bilaterally Eyes General: appearance normal, both eyes and all related structures Neck Neck: Yes normal visual inspection and Yes trachea midline Chest Chest palpation & inspection: normal inspection of the chest Resp Effort & Inspection: normal respiratory effort and able to speak in complete sentences Cardio Rate: regular rate GI Inspection: Yes normal to inspection General: Yes no CVA tenderness Back/Spine/Pelvis Back: no CVA tenderness Skin General skin exam: no rashes or lesions noted Neuro General: patient oriented x3 Extrem General: Yes normal to inspection Psych Appearance: grossly normal and well kempt Mental Status: mental status grossly normal Speech and movement: Normal speech and movement present and Clear speech present Affect: normal affect Attitude: cooperative Thought process: Normal thought process present Thought content: Normal thought content present Insight: Fair insight present (Psych) Judgement: Fair judgement present (Psych) Results AMB Urinalysis, Automated UA Leukoctes 0 Alisha/uL Last Edit by Faby Shepard CMA on 04/15/25 10:06 UA Nitrite Negative Last Edit by Faby Shepard, JUNAID on 04/15/25 10:06 UA Urobilinogen 0.2 mg/dL Last Edit by Faby Shepard CMA on 04/15/25 10:06 UA Protein 15 mg/dL Last Edit by Faby Shepard, JUNAID on 04/15/25 10:06 UA pH 6.0 Last Edit by Faby Shepard, JUNAID on 04/15/25 10:06 UA Blood 0 Rusty/uL Last Edit by Faby Shepard, CUTTER GRIND TOOL TECHNICIAN on 04/15/25 10:06 UA Specific [place] 1.020 Last Edit by Faby Shepard, JUNAID on 04/15/25 10:06 UA Ketone Negative Last Edit by Faby Shepard, JUNAID on 04/15/25 10:06 UA Bilirubin 1 mg/dL Last Edit by Faby Shepard, JUNAID on 04/15/25 10:06 UA Glucose 0 mg/dL Last Edit by Faby Shepard CMA on 04/15/25 10:06 Results Reviewed Results Reviewed: Laboratory Last Values Urine pH (Auto) 6.0 04/15/25 10:05 Specific [place] (Auto) 1.020 04/15/25 10:05 Urine Protein (Auto) 15 mg/dL 04/15/25 10:05 Glucose (UA)(Auto) 0 mg/dL 04/15/25 10:05 Urine Ketones (Auto) Negative 04/15/25 10:05 Urine Blood (Auto) 0 Rusty/uL 04/15/25 10:05 Urine Nitrite (Auto) Negative 04/15/25 10:05 Urine Bilirubin (Auto) 1 mg/dL 04/15/25 10:05 Urine Urobilinogen (Auto) 0.2 mg/dL 04/15/25 10:05 Leukocyte Esterase (Auto) 0 Alisha/uL 04/15/25 10:05 Date of Service: 03/19/25 Procedure(s): CT abdomen pelvis w IV con FINDINGS: LUNG BASES: Lung bases demonstrate subpleural reticular changes, possibly atelectasis although early interstitial lung disease is a consideration. There is mild cardiac enlargement. There are no effusions. The GE junction appears normal. LIVER, GALLBLADDER, AND BILIARY TREE: The liver is diffusely decreased in attenuation consistent with fatty infiltration. No suspicious lesion. There is been a cholecystectomy. No intra or extrahepatic biliary dilatation of significance. PANCREAS: Unremarkable. SPLEEN: There are 2 simple cystic foci in the spleen, the larger measuring 1.6 cm near the hilum, nonspecific but consistent with benign entities. Spleen otherwise normal. ADRENAL GLANDS: Unremarkable. KIDNEYS AND URETERS: Right kidney is diffusely atrophic cyst posteriorly. There is no hydronephrosis or mass. The left kidney is compensatorily hypertrophied. There is a 3 mm nonobstructing calculus in the midpole, and there is cortical scarring of the upper pole. There is mild fullness of the collecting system, with an abrupt change at the UPJ region suggestive of a chronic UPJ obstruction. The remainder of the ureter is normal in caliber into the bladder. There are no calculi in the ureters. No ureteral dilatation. BLADDER: Unremarkable. GASTROINTESTINAL TRACT: There is moderate diverticulosis of the descending and sigmoid colon. There is no acute inflammation identified. The remainder of the colon appears normal. The appendix is not seen and there is no evidence of appendicitis. The small bowel is normal in caliber and course. There is no small bowel abnormality identified. The stomach is somewhat decompressed. The duodenum has a normal course. ABDOMINAL WALL: There is a large left spigelian type hernia containing fat and loops of small bowel. This is a large neck without evidence of incarceration present. LYMPH NODES: Normal. VASCULAR: There has been a aortobiiliac bypass. The bypass graft appears widely patent. The [place] aorta is heavily calcified and appears occluded. There is no evidence of venous thrombosis. PELVIC VISCERA: The uterus and adnexa are unremarkable. OSSEOUS STRUCTURES: There is a moderate right convex thoracolumbar scoliosis with moderate degenerative spondylosis. No suspicious lytic or blastic bone lesions are detected. IMPRESSION: 1. No acute findings in the abdomen or pelvis. No obstructive uropathy identified. 2. Atrophy of the right kidney. Scarring of the left kidney. Nonobstructing tiny calculi left kidney. 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 3. There has been prior aortobiiliac bypass. The graft is widely patent 4. Large left abdominal wall spigelian type hernia. 5. Mild diffuse fatty infiltration of the liver. There has been a cholecystectomy. 6. Subpleural reticular changes in the lung bases, possibly atelectasis although early interstitial disease is not excluded. 7. See the body the report for additional ancillary findings. Assessment & Plan Assessment & Plan (1) UPJ obstruction, acquired: Code(s): N13.5 - Crossing vessel and stricture of ureter without hydronephrosis Category: Medical (2) Atrophic kidney: Code(s): N26.1 - Atrophy of kidney (terminal) Category: Medical (3) Urinary urgency: Code(s): R39.15 - Urgency of urination Category: Medical (4) Urinary frequency: Code(s): R35.0 - Frequency of micturition Category: Medical (5) Nephrolithiasis: Code(s): N20.0 - Calculus of kidney Category: Medical Plan In office urinalysis results reviewed with the patient today; as noted above. Recent CT results reviewed with the patient today; as noted above. Will continue with surveillance monitoring at this time as patient reports atrophic kidney and chronic UPJ obstruction are not new findings We did discussed further workup to include nuclear renal scan; she will think about this We discussed at length potential causes of these urological conditions and further interventions and risks and benefits of these interventions. She does report episodes of urinary urgency and frequency however feel they are self-limiting and will continue with surveillance monitoring at this time. Previous BUN and creatinine labs were reviewed with the patient today Continue to follow-up with providers as planned. We discussed importance of adequate hydration relation to nephrolithiasis as well as overall health and well-being. We discussed adding 1 oz of lemon juice to water daily. Will obtain renal ultrasound in 3 months. Follow-up in 3 months with imaging and labs; or sooner with any issues, concerns, and or questions. Orders: Orders AMB Urinalysis Automated Today R39.15 - Urgency of urination Blood Urea Nitrogen 3 Months R39.15 - Urgency of urination US renal BI 3 Months N13.5 - Crossing vessel and stricture of ureter without hydronephrosis, N20.0 - Calculus of kidney Creatinine 3 Months R39.15 - Urgency of urination Blood Urea Nitrogen Today N13.5 - Crossing vessel and stricture of ureter without hydronephrosis Creatinine Today N13.5 - Crossing vessel and stricture of ureter without hydronephrosis Patient Instructions: The patient had an opportunity to ask questions regarding the treatment plan. All questions were answered. Physical exam, labs, and imaging were discussed and reviewed in detail. As well as risks, benefits, and discussion of treatment choices. No major barriers to understanding were identified. The patient expressed understanding and agreement with the above treatment plan. The patient was made aware they should contact our office by phone for worsening of their current condition, the appearance of new symptoms, or with any questions or concerns. Compliance is encouraged with any medications and follow up testing that is ordered. It is a privilege to be allowed the opportunity to participate in? your urological care.? Again, if you have any questions or concerns If you have any questions or concerns please do not hesitate to contact me. The office is [phone]. This note is constructed using voice recognition software. While every effort has been made to ensure accuracy power equipment mechanics instructor errors may have been included. Yours sincerely, NARESH Naqvi Coding Level of Care Code New Pt Level 3 (24563) Diagnoses UPJ obstruction, acquired N13.5 Atrophic kidney N26.1 Urinary urgency R39.15 Urinary frequency R35.0 Nephrolithiasis N20.0
--- OUTSIDE RECORDS SUMMARY | 2025-04-15 10:13 | XMS_ITS | Encounter Summary ---
Author Organization [facility], Address [address] [place] [address] Phone Care Team Providers Care Electric Motor Control Assembler Name Role Phone Cierra Rae PA-C Primary Care Provider [phone] Encounter Details Date Type Department Care Team (Late st Contact Info) Description 12/07/2022 Documentation Only [facility], [address] [place] [address] Damion [place] [address] [place] [address] Social History Tobacco Use Types [...] [facility] [address] [address] Edenilson Dyer MD [address] [address] documented as of this encounter Visit Diagnoses Not on filedocumented in this encounter Care Teams Electric Motor Control Assembler Relationship Specialty Start Date End Date Cierra Rae PA-C [address] [place] [id number] PCP - General Internal Medicine 12/07/22 documented as of this encounter
--- OUTSIDE RECORDS SUMMARY | 2025-04-15 10:13 | XMS_ITS | Data Portability ---
Author Organization [place] - [facility], [facility] Address [address] [place] [phone] Care Team Providers Care Pin Setter Name Role Phone SAMUEL MAGDALENO Primary Care Provider [phone] Assessment Encounter Date Assessment Date Assessment LastModified [...] ? Does patient have unaddressed skilled needs? (PT/OT/personal care worker?) Low Risk If high risk, refer to Home Health. M edication (reconciliation and management) Low Risk ? ? ? I nformation (understanding of disease/treatment /red flags) Low Risk ? ? ? L inked up (access to healthcare, food, social support) Low Risk Resources available at [employer] ngagement (patient or caregiver engaged in [...] I have accessed patient records on the [employer]. This information was pertinent in my medical decision making today. [email or web address] Not available 12/17/2021 17:24:02 Plan of Treatment [...] By Organization Details Last Modified Time 12/17/2021 [id number] You have a follo w up appointment scheduled with your on . A Follow up appointment has been scheduled with [facility] on . In the morning of this appointment, the [facility] Care team will call you and let you know what window of time the team will arrive. If you are not feeling well and you feel you need to be evaluated urgently, please contact [facility] at the phone number printed on this paper to access care. Thank you for your visit with [facility] today. You were seen as a follow [...] in your condition between 8am-10pm, please call [facility] at the number listed on the top of your paperwork to help navigate your care. [email or web address] Not available 12/17/2021 17:11:07 Reason for Referral None Reported. Procedures Surgical History Date Name Laterality Status Provider Name and Address Organization Details Recorded Time 022 Medication Review completed Monika MEGHA Khan, [place], [address], [place] - [facility] 12/17/2021 17:11:08 Cholecystectomy completed Monika Khan NP [address] [place], [address], [place] [facility] 12/17/2021 17:02:55 Imaging Results None recorded. Procedure Notes None recorded. Medical Equipment None Reported. Allergies Allergen ID Allergen Name Allergen Category Reaction Reaction Severity Criticality Documentation Date Start Date Code Code System Note Provider Name and Address Organization Details Recorded Time [id number] Substance with sulfonami de structure and antibacte rial mechanism of action (substanc e) medicatio n Not available Not available Not available 12/17/2021 13690 8003 SNOMED Monika Khan NP [address] [place], [id number], [place] [facility] 17:00:43 [id number] iodine medicatio n Not available Not available Not available 12/17/2021 5933 RxNorm Monika Khan NP [address] [place], [id number], [place] [facility] 2 17:00:53 [...] N Cancer N Stroke N Dementia N Hypothyroidism N COPD N Asthma N Depression N High Cholesterol Y Rheumatoid Arthritis N Pulmonary Embolism N Hypertension Y A-fib N Osteoporosis N Kidney Disease N Gynecological HistoryNo gynecological history recorded. Obstetrics History GPAL:G 0 P 0 0 0 0 Past Encounters Encounter ID Performer Location Encounter Start Date Encounter Closed Date Diagnosis/Indication Diagnosis SNOMED-CT Code Diagnosis ICD10 Code Diagnosis Note [id number] Monika Khan NP [facility] [address] [place] [address] 12/17/2021 16:59:34 12/19/2021 21:42:39 COVID-19 [id number] U07.1 Health Concerns Section Related Observation LastModified by Organization Detai ls LastModified Time None Recorded Concern Status LastModified by Organization Details LastModified Time None Recorded Advance Directives Directive None Recorded Payers Insurance Date Sequence Insurance Name Policy Number Policy Johnson Covered Member ID Johnson Member ID Guarantor Name 02/18/2022 1 [place] [employer] Cindylou Carlos [id number] Cindylou Carlos 12/16/2021 1 [place] Cindylou Carlos [id number] Cindylou Carlos 02/18/2022 2 [place] Cindylou Carlos Cindylou Carlos Notes Date Note Type Note Provider Name [...] noted and given fluids with DC home. Ronan worse again yesterday. Went to the ED [...] constant. Monika Khan NP [address], [place], [address], [place] [facility] 12/17/2021 17:24:22 OBGyn Episode No OBEpisode recorded.
--- OUTSIDE RECORDS SUMMARY | 2025-04-15 10:13 | XMS_ITS | Clinical Summary ---
Author Organization [facility] Address [address] [place] [address] Phone Care Team Providers Care Shop Technician Name Role Phone Cierra Rae PA-C Primary Care Provider [phone] Allergies Active Allergy Reactions Criticality Noted Date [...] 03/05/2025 Telephone [facility] [address] [place] [phone] [address] [place] 01/31/2025 10:20 AM EST Office Visit [facility] [address] [address] Edenilson Dyer MD Stage 3a chronic kidney [...] Office Visit [facility] [address] [phone] Edenilson Dyer MD [address] [address] Health Maintenance Due Date Last [...] age to complete this topic Insurance Medicare [facility] Medicare [facility] Medicare Care Teams Shop Technician Relationship Specialty Start Date End Date Cierra Rae PA-C [address] [place] [address] PCP - General Internal Medicine 12/07/22
--- OUTSIDE RECORDS SUMMARY | 2025-04-15 10:13 | XMS_ITS | Clinical Summary ---
Author Organization [facility] Address [address] [place] [address] Care Team Providers Care Ventilating Expert Name Role Phone Milagros Mcdonald MD Primary Care Provider [phone] Allergies Active Allergy Reactions Criticality Noted Date [...] DELIVERY; COMMENT: x 2 CHOLECYSTECTOMY 1982 PROCEDURE: [place] CHOLECYSTECTOMY APPENDECTOMY 1982 PROCEDURE: HISTORICAL APPENDECTOMY TONSILLECTOMY ? PROCEDURE: HISTORICAL TONSILLECTOMY OTHER SURGICAL HISTORY ? PROCEDURE: [place] SINUSOT SPHENOID W/MUCOSAL STRIPPING/RMVL POLYP Medical History [...] Maternal Grandfather Maternal Grandmother Mother Alive htn, [place], arthir itis Paternal Grandfather Paternal Grandmother Sister [...] Description 07/30/2025 8:00 AM EDT Ancillary Procedure [facility] [address] [place] [address] Health Maintenance Due Date Last [...] * Annual BMP Blood Test (11/15/2019) Pathologist [facility] Annual BMP Blood Test Abstracted us Historical Provider MD HEALTH MAINTENANCE Final Result * (ABNORMAL) Lipid panel (10/15/2019) [facility] LDL/HDL Ratio 4 0 - 4 [...] Recently Relevant to Health Maintenance Insurance MEDICARE [facility] Care Teams Ventilating Expert Relationship Specialty Start Date End Date Milagros Mcdonald MD PCP - General Internal Medicine 03/12/22
--- OUTSIDE RECORDS SUMMARY | 2025-04-15 10:13 | XMS_ITS | Encounter Summary ---
Author Organization [facility], Address [address] [place] [address] Phone Care Team Providers Care Forensic Scientist Name Role Phone Cierra Rae PA-C Primary Care Provider [phone] Encounter Details Date Type Department Care Team (Late st Contact Info) Description 12/07/2022 Documentation Only [facility], [address] [place] [address] Damion Dalton [place] [address] [place] [address] Social History Tobacco Use Types [...] Visit [facility] [address] [address] Edenilson Dyer MD [address] [address] documented as of this encounter Visit Diagnoses Not on filedocumented in this encounter Care Teams Forensic Scientist Relationship Specialty Start Date End Date Cierra Rae PA-C [address] [place] [address] PCP - General Internal Medicine 12/07/22 documented as of this encounter
--- OUTSIDE RECORDS SUMMARY | 2025-04-15 10:13 | XMS_ITS | Encounter Summary ---
Author Organization [facility], Address [address] [place] [address] Phone Care Team Providers Care Receiving Operator Name Role Phone Cierra Rae PA-C Primary Care Provider [phone] Encounter Details Date Type Department Care Team (Late st Contact Info) Description 12/07/2022 Documentation Only [facility], [address] [place] [address] Damion Dalton [place] [address] [place] [address] Social History Tobacco Use Types [...] [facility] [address] [address] Edenilson Dyer MD [address] [address] documented as of this encounter Visit Diagnoses Not on filedocumented in this encounter Care Teams Receiving Operator Relationship Specialty Start Date End Date Cierra Rae PA-C [address] [place] [id number] PCP - General Internal Medicine 12/07/22 documented as of this encounter
== END 2025-04-15 10:28 | disposition home or self-care (01) ==
LOC: HO.HUSH 09:54
PROVIDERS: PCP Physician Assistant Medical; Visit Provider Nurse Practitioner Family
DX: N13.5 Crossing vessel and stricture of ureter without hydronephrosis (principal); N26.1 Atrophy of kidney (terminal); R39.15 Urgency of urination; R35.0 Frequency of micturition; N20.0 Calculus of kidney
CPT/HCPCS: 99203

== ENCOUNTER → 2025-04-15 09:53 | Outpatient (BNVA) | payer MEDICARE, SELFPAY | PROVIDERS: PCP Physician Assistant Medical; Visit Provider Nurse Practitioner Family | DX: N13.5 Crossing vessel and stricture of ureter without hydronephrosis (principal); N26.1 Atrophy of kidney (terminal); R39.15 Urgency of urination; R35.0 Frequency of micturition; N20.0 Calculus of kidney | CPT/HCPCS: 81003; 99202 ==

== ENCOUNTER 2025-05-23 08:39 | Outpatient (AMB) | payer MEDICARE, SELFPAY ==
[2025-05-23 08:40] VITALS: BP 172/72; PULSE 67; BMI 35.2
--- NOTE | 2025-05-23 08:40 | A.OFFVIS_ITS ---
Vital Signs 05/23/25 08:40 Height 4 ft 11 in Weight 174 lb 2.643 oz BMI 35.2 BP 172/72 H Blood Pressure Location Lt brachial Position Sitting Pulse 67 Intake Visit Reasons: anemia Intake Note: Anna presents in the office as a new patient for anemia. CC: She states that she feels like nexium is no longer working for her. She will get the burps but nothing will come out. She was brought today due to her anemia. 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 Required: No Allergies sulfadiazine Allergy (Intermediate, Verified 05/23/25 08:43) Rash rosuvastatin Adverse Reaction (Mild, Verified 05/23/25 08:43) Nausea betadine Allergy (Mild, Uncoded 05/23/25 08:43) Rash doxazosin Allergy (Unknown, Uncoded 05/23/25 08:43) Unknown zetia Allergy (Unknown, Uncoded 05/23/25 08:43) Unknown amlodipine Adverse Reaction (Mild, Uncoded 05/23/25 08:43) Abdominal Pain chlorthalidone Adverse Reaction (Mild, Uncoded 05/23/25 08:43) Abdominal Pain Medication List - Last Reconciled 05/23/25 by Liliana Hdz CNP aspirin 81 mg PO DAILY cetirizine (Zyrtec) 10 mg PO DAILY PRN cholecalciferol (vitamin D3) 50 mcg PO DAILY cyanocobalamin (vitamin B-12) 1,000 mcg PO DAILY esomeprazole magnesium (Nexium 24HR) 40 mg PO DAILY ferrous gluconate 324 mg PO DAILY 90 days fluticasone furoate 27.5 mcg/actuation (Flonase Sensimist) 2 sprays intranasal DAILY hydralazine 25 mg PO TID 90 days simvastatin 40 mg PO BEDTIME HPI HPI anemia: Details: Patient is a 70-year-old female with PMH of obesity, IBS, IDALMIS, hyperlipidemia, GERD, PAD. Referred by PCP for further evaluation of IDALMIS. Anna reports chronic iron deficiency anemia and recent diagnosis of a hernia. She reports being anemic since her teenage years. Two years ago, she had major abdominal surgery including vascular surgery with reimplantation of the left renal artery and bilateral and femoral endarterectomies. Recently, she experienced weight gain post-surgery and has noticed increased acid reflux that is poorly controlled by esomeprazole. Her reflux symptoms include a sensation of needing to belch but being unable to. Additionally, Anna notes feeling a sense of incomplete bowel evacuation, despite having a typical morning bowel movement and no pain or blood in stools. A hernia diagnosis was made following a recent CT scan. She will likely need hernia surgery soon and is connected with [facility]. Patient denies: fever/chills, n/v, appetite changes, pyrosis, regurgitation,dysphasia, unintentional wt loss, ab pain or melena/hematochezia. Social hx: Diet: Oatmeal with nuts for breakfast, half chicken or turkey sandwich, fish or occasional cheeseburgers for dinner, low junk food intake, good water intake. 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 - family hx as below -tolerated anesthesia in the past without difficulty. [facility] Medical History (Updated 05/26/25 @ 11:28 by Liliana Hdz CNP) Colon cancer screening Nephrolithiasis Hepatic steatosis Abdominal wall hernia Bilateral hydronephrosis Lower extremity edema Sensation of pressure in bladder area Urinary urgency Obesity with serious comorbidity Bilateral knee pain Bilateral hand pain History of acute renal failure IBS (irritable bowel syndrome) Aortic stenosis IDALMIS (iron deficiency anemia) Hyperlipidemia LDL goal <70 History of Helicobacter pylori infection CKD stage 3a, GFR 45-59 ml/min GERD (gastroesophageal reflux disease) Carotid artery stenosis Renovascular hypertension PAD (peripheral artery disease) Acute blood loss anemia Abdominal aortic aneurysm (AAA) Surgical History (Updated 05/23/25 @ 08:42 by TAMMY Escoto) Hx of colonoscopy History of esophagogastroduodenoscopy (EGD) H/O vascular surgery H/O section H/O sinus surgery History of appendectomy History of cholecystectomy Family History Mother Cancer Heart disease Hyperlipidemia Hypertension Father Hypertension TIA (transient ischemic attack) Sister Heart disease Hypertension Maternal Grandmother Diabetes mellitus Maternal Grandfather Diabetes mellitus Paternal Grandmother Diabetes mellitus Paternal Grandfather Diabetes mellitus Social History Housing: Condominium Alcohol intake: former Patient Tobacco Use Status: Former Tobacco user Tobacco use type: Cigarette Cigarette Packs Per Day: 0.5 Years Smoked: 30 e-Cigarette/Vaping Use: Never Used Second Hand Smoke Exposure: No service: No Current occupational status: retired Current occupational exposures/hazards: No Cognitive needs: No Hearing needs: No Vision needs: No Review of Systems Const Reports as per [facility] ENT Reports as per [facility] Card Reports as per [facility] Resp Reports as per [facility] GI Reports as per [facility] Reports as per [facility] Physical Exam Vital Signs: Last Vital Signs Pulse 67 05/23/25 08:40 BP 172/72 H 05/23/25 08:40 BMI result Body Mass Index 35.2 Const General: healthy appearing, no acute distress and well developed Nutritional Appearance: well nourished Orientation/consciousness: patient oriented x3 HEENT Head: Yes normal to inspection, Yes normocephalic and Yes atraumatic Face and sinus: Yes normal facial exam Eyes General: appearance normal, both eyes and all related structures Neck Neck: Yes normal visual inspection Resp Effort & Inspection: normal respiratory effort, able to speak in complete sentences, no tracheal deviation and symmetric chest movement Auscultation: clear to auscultation bilaterally Cardio Jugular venous distension: no JVD Rate: regular rate Rhythm: regular rhythm Heart sounds: S1 normal heart sound present, S2 normal heart sound present, no gallops and no murmurs GI Inspection: No distended, Yes obesity and Yes scar (large surgical scar extending from mid ab to LUQ ) Palpation (GI): Soft to palpation, not firm, nontender and No hepatosplenomegaly present Auscultation: normal bowel sounds Neuro General: patient oriented x3 Gait exam (Neuro): Normal gait present Psych Appearance: grossly normal Mental Status: mental status grossly normal Speech and movement: Normal speech and movement present Affect: normal affect Attitude: cooperative Thought process: Normal thought process present Thought content: Normal thought content present Insight: Good insight present (Psych) Judgement: Good judgement present (Psych) Assessment & Plan Assessment & Plan (1) GERD (gastroesophageal reflux disease): Code(s): K21.9 - Gastro-esophageal reflux disease without esophagitis Category: Medical Qualifiers: Esophagitis presence: esophagitis presence not specified Qualified Code(s): K21.9 - Gastro-esophageal reflux disease without esophagitis Plan: Chronic reflux symptoms refractory to current PPI dose, worsened post-surgery, with dyspepsia and belching. No alarm symptoms. Additional Tests: EGD scheduled to evaluate for esophagitis, Elizalde?s, or other pathology. Medications: Increase esomeprazole to 40mg PO daily (2 x 20mg). Encouraged to take esomeprazole as prescribed, taken at least 30-60 minutes before a meal. Education on GERD prevention : -Advised against heavy meals; encouraged small, frequent meals instead of large ones. - Instructed to remain upright for 2?3 hours after eating. - Advised to avoid late-night meals, spicy foods, caffeine, alcohol, known dietary triggers, and tight-fitting clothing. - Emphasis placed on gradual implementation of lifestyle changes to improve adherence and symptom control. (2) IBS (irritable bowel syndrome): Code(s): K58.9 - Irritable bowel syndrome, unspecified Category: Medical Qualifiers: Irritable bowel syndrome type: with constipation Qualified Code(s): K58.1 - Irritable bowel syndrome with constipation Plan: Intermittent incomplete evacuation without pain, blood, or significant constipation/diarrhea; history of IBS, symptoms mild and non-disruptive. Additional Tests: screening colonoscopy as below Medications: Consider stool softener if symptoms worsen; not indicated currently. Reinforced lifestyle modifications to promote regularity: -higher fiber diet, examples provided -adequate hydration with water -150 minutes of moderate intensity exercise per week (3) IDALMIS (iron deficiency anemia): Code(s): D50.9 - Iron deficiency anemia, unspecified Category: Medical Qualifiers: Iron deficiency anemia type: unspecified iron deficiency Qualified Code(s): D50.9 - Iron deficiency anemia, unspecified Plan: Chronic anemia with fluctuating iron levels, history of transfusions, and no overt GI bleeding. Etiology unclear; possible chronic GI blood loss, malabsorption, or post-surgical changes. H&H stable with normal iron studies. Additional Tests: Monitor CBC, iron studies; colonoscopy and EGD scheduled to rule out GI source. Medications: Continue iron supplementation; monitor for need of transfusion. Lifestyle Modifications: Maintain iron-rich diet, adequate hydration. Follow-Up: Monitor labs; refer to hematology if anemia worsens or transfusion required. (4) Colon cancer screening: Code(s): Z12.11 - Encounter for screening for malignant neoplasm of colon Category: Medical Plan: Last colonoscopy ~15 years ago (performed by Dr. Gomez at [facility]); no interval colonoscopies since. Medications: -prescriptions for laxative tablets and MiraLax sent to pharmacy; instructions for Gatorade purchase and clear liquid diet given. - understands ASA will need to be held days prior to procedure. Nurse to review med holds per protocol. Patient educated on scheduling process, procedure preparation, including avoiding certain foods and ensuring clear liquid intake Advised on necessity for ride post-procedure due to sedation. Plan Follow-up after endoscopy or sooner as needed Time: I spent a total of 45 minutes on the date of encounter which includes: Preparing to see the patient (reviewed previous documentation, test results and medical history) Performing a medically appropriate exam and/or evaluation Ordering medications, tests, and procedures Documenting clinical iformation in the health record Medications: New polyethylene glycol 3350 (Miralax) per colonoscopy prep instructions 238 grams PO ONCE 238 grams 0RF bisacodyl Take four tablets once for 1 day per colonoscopy instructions 5 mg PO ONCE 4 tabs 0RF 1 day Coding Level of Care Code New Pt New Pt Level 4 (77691) Patient Type New Diagnoses Gastroesophageal reflux disease, unspecified whether esophagitis present K21.9 Esophagitis presence: esophagitis presence not specified Irritable bowel syndrome with constipation K58.1 Irritable bowel syndrome type: with constipation Iron deficiency anemia, unspecified iron deficiency anemia type D50.9 Iron deficiency anemia type: unspecified iron deficiency Colon cancer screening Z12.11
--- OUTSIDE RECORDS SUMMARY | 2025-05-23 09:07 | XMS_ITS | Clinical Summary ---
Author Organization [facility] Address [address] [place] [address] Care Team Providers Care First Grade Teacher Name Role Phone Milagros Mcdonald MD Primary Care Provider [phone] Allergies Active Allergy Reactions Criticality Noted Date [...] Maternal Grandfather Maternal Grandmother Mother Alive htn, [place], arthir itis Paternal Grandfather Paternal Grandmother Sister [...] 8:00 AM EDT Ancillary Procedure [facility] [address] [place] [address] Health Maintenance Due Date Last [...] BMP Blood Test (11/15/2019) Pathologist [facility] Annual BMP Blood Test Abstracted us Historical Provider MD HEALTH MAINTENANCE Final Result * (ABNORMAL) Lipid panel (10/15/2019) [facility] LDL/HDL Ratio 4 0 - 4 Triglycerides [...] [facility] Care Teams First Grade Teacher Relationship Specialty Start Date End Date Milagros Mcdonald MD PCP - General Internal Medicine 03/12/22
== END 2025-05-23 09:38 | disposition home or self-care (01) ==
LOC: HO.HGI 08:39
PROVIDERS: PCP Physician Assistant Medical; Visit Provider Nurse Practitioner Family
DX: D50.9 Iron deficiency anemia, unspecified (principal); K21.9 Gastro-esophageal reflux disease without esophagitis; K58.1 Irritable bowel syndrome with constipation
CPT/HCPCS: 99204

== ENCOUNTER → 2025-05-23 08:39 | Outpatient (BNVA) | payer MEDICARE, SELFPAY | PROVIDERS: PCP Physician Assistant Medical; Visit Provider Nurse Practitioner Family | DX: Z12.11 Encounter for screening for malignant neoplasm of colon (principal); K21.9 Gastro-esophageal reflux disease without esophagitis; K58.1 Irritable bowel syndrome with constipation; D50.9 Iron deficiency anemia, unspecified | CPT/HCPCS: 99202 ==

== ENCOUNTER 2025-08-22 08:49 | Outpatient (AMB) | payer MEDICARE, SELFPAY ==
--- NOTE | 2025-08-22 08:52 | A.OFFPC_ITS ---
Vital Signs 08/22/25 08:55 Height 4 ft 11 in Weight 177 lb 2 oz BMI 35.8 BP 142/62 H Blood Pressure Location Lt brachial Position Sitting Respiration 14 Pulse 68 Pulse Source Pulse Oximeter Temp 97.9 F Temp Source Temporal Artery Scan Pulse Oximetry (%) 97 Oxygen Delivery Method Room Air Intake Visit Reasons: follow up/med review Intake Note: Anna presents in the office today for a follow up and medication review. Allergies sulfadiazine Allergy (Intermediate, Verified 08/22/25 08:53) Rash rosuvastatin Adverse Reaction (Mild, Verified 08/22/25 08:53) Nausea betadine Allergy (Mild, Uncoded 08/22/25 08:53) Rash doxazosin Allergy (Unknown, Uncoded 08/22/25 08:53) Unknown zetia Allergy (Unknown, Uncoded 08/22/25 08:53) Unknown amlodipine Adverse Reaction (Mild, Uncoded 08/22/25 08:53) Abdominal Pain chlorthalidone Adverse Reaction (Mild, Uncoded 08/22/25 08:53) Abdominal Pain Medication List - Last Reconciled 08/23/25 by JACOB Alex aspirin 81 mg PO DAILY bisacodyl 5 mg PO ONCE 1 day cetirizine (Zyrtec) 10 mg PO DAILY PRN cholecalciferol (vitamin D3) 50 mcg PO DAILY cyanocobalamin (vitamin B-12) 1,000 mcg PO DAILY esomeprazole magnesium (Nexium 24HR) 40 mg PO DAILY ferrous gluconate 324 mg PO DAILY 90 days fluticasone furoate 27.5 mcg/actuation (Flonase Sensimist) 2 sprays intranasal DAILY hydralazine 25 mg PO TID 90 days polyethylene glycol 3350 (Miralax) 238 grams PO ONCE simvastatin 40 mg PO BEDTIME Tobacco use date assessed: 08/22/25 Dental Screening Dental Screen Date: 08/22/25 Did you have a dental visit in the last 12 months?: No Did you have a dental problem in the last 6 months where you did not have access to dental care?: No Was dental information given to patient?: Patient has dentist HPI HPI Comments History of Present Illness Details This is a 70-year-old female with a past medical history of severe aortoiliac occlusive disease, renovascular hypertension, iron deficiency anemia, aortic stenosis, coronary artery stenosis, IBS and GERD presenting for follow up. Hydronpehrosis-Follow up u/s scheduled. 10/04/25. Sees urology 10/07/2025. She underwent aortic endarterectomy and aortobifemoral bypass with reimplantation of her left renal artery 04/06/2023. Her postoperative course was complicated by an infected seroma of her thoracoabdominal incision which was evacuated on 04/29/2023. She is followed by Dr. Jenkins. They are monitoring left JUNG. She is followed by Dr. Lund. She had a negative nuclear stress test prior to her surgery. She did not tolerate rosuvastatin and atorvastatin. She takes 40 mg of simvastatin. We discussed starting a PCSK9 inhibitor, but she deferred it due to the cost. It was 400 dollars despite insurance coverage. Patient saw a dietitian. LDL is 84 with a goal of less than 70. She has an upcoming consult for Dr. Garcia for evaluation of the abdominal wall hernia. Anemia-she is taking her iron. I reviewed external labs, and this is stable. Denies shortness of breath, dizziness, unexplained bruising or blood loss. Patient was referred to Heme-Onc at [facility], and they told us she does not need to be seen unless she is not tolerating oral iron or it is ineffective. I reviewed her chart, and I referred her to [facility], and it says that an appointment was scheduled with the patient, but she said she was never informed about it. She is on Nexium daily which can decrease iron absorption. She was evaluated by [facility] Gastro[facility], and EGD and colonoscopy were ordered, but she does not want to have the testing done there. Her last colonoscopy was probably about 15 years ago per patient. She would like a referral to Dr. Daniel Shepard. She denies abdominal pain, blood in stools, nausea, vomiting or unexplained weight loss. She is followed by Dr. Martinez for hypertension and CKD stage IIIA. She takes hydralazine to 25 mg 3 times a day her blood pressure is much better. She has a component of office hypertension. This is well documented. She brought a list of home readings of which the majority are at target. Patient is completing PT at [facility] in [place] and right lower back pain resolved. ROS: Constitutional: No unexplained weight loss, fever, chills, fatigue or night sweats. Respiratory: No shortness of breath, cough or sputum production. Cardiovascular: No chest pain or palpitations. Gastrointestinal: No anorexia, nausea, vomiting or diarrhea. No abdominal pain or blood in stool. Genitourinary: No burning with urination or hematuria. No vaginal discharge or vaginal bleeding. Neurologic: No headache, dizziness, syncope Hematologic/Lymphatics: No bleeding or bruising. No painful lymph nodes. Skin: No rash Constitutional: Alert, in no distress. Head: Normocephalic. Neck: Supple, Full range of motion. No lymphadenopathy Respiratory: Clear to auscultation in all ro[place]hal Cardiovascular: S1 S2 regular. III/ systolic murmur. Abdomen: Soft, nontender. Bowel sounds normoactive in 4 quadrants. Large abdominal hernia on the left side. Neurologic: No focal neurological deficits. Extremities: Warm and well perfused. 1+ bilateral edema of lower legs and feet. No erythema or tenderness. Psychiatric: Normal mood and affect [facility] Medical History (Updated 08/23/25 @ 12:56 by JACOB Alex) Right hip pain Right low back pain Colon cancer screening Nephrolithiasis Hepatic steatosis Abdominal wall hernia Bilateral hydronephrosis Lower extremity edema Sensation of pressure in bladder area Urinary urgency Obesity with serious comorbidity Bilateral knee pain Bilateral hand pain History of acute renal failure IBS (irritable bowel syndrome) Aortic stenosis IDALMIS (iron deficiency anemia) Hyperlipidemia LDL goal <70 History of Helicobacter pylori infection CKD stage 3a, GFR 45-59 ml/min GERD (gastroesophageal reflux disease) Carotid artery stenosis Renovascular hypertension PAD (peripheral artery disease) Acute blood loss anemia Abdominal aortic aneurysm (AAA) Surgical History (Updated 05/23/25 @ 08:42 by TAMMY Escoto) Hx of colonoscopy History of esophagogastroduodenoscopy (EGD) H/O vascular surgery H/O section H/O sinus surgery History of appendectomy History of cholecystectomy Family History Mother Cancer Heart disease Hyperlipidemia Hypertension Father Hypertension TIA (transient ischemic attack) Sister Heart disease Hypertension Maternal Grandmother Diabetes mellitus Maternal Grandfather Diabetes mellitus Paternal Grandmother Diabetes mellitus Paternal Grandfather Diabetes mellitus Social History (Updated 08/22/25 @ 08:55 by Dania Cihld CMA) Housing: Condominium Alcohol intake: former Patient Tobacco Use Status: Former Tobacco user Tobacco use type: Cigarette Cigarette Packs Per Day: 0.5 Years Smoked: 30 e-Cigarette/Vaping Use: Never Used Second Hand Smoke Exposure: No service: No Current occupational status: retired Current occupational exposures/hazards: No Cognitive needs: No Hearing needs: No Vision needs: No Questionnaire Thrive Questionnaire Date Thrive assessed: 02/15/25 I am a: Patient What is your living situation today?: I have a steady place to live Within the past 12 months, did the food you bought not last and you didn't have the money to get more?: Never true Within the past 12 months, did you worry whether your food would run out before you got money to buy more?: Never true Do you have trouble paying for medicines?: No Do you have trouble getting transportation to medical appointments?: No Do you have trouble paying your heating and electricity bill?: No Do you have trouble taking care of your child, family member or friend?: No Do you have trouble with day-to-day activities such as bathing, preparing meals, shopping, managing finances, etc.?: No Are you currently unemployed and looking for a job?: No Are you interested in more education?: No Please select the resources that you would like help with: None Currently or been in a relationship where the following occur: No concerns reported THRIVE Score: 0 SAPPHIRE-7 AMB Questionnaire SAPPHIRE-7 Date SAPPHIRE - 7 assessed: 03/04/25 Source: Developed by Drs. Kane Carreon, Stephanie hSea, Jarrett Glover and colleagues, with an educational laurel from [employer]. Physical exam (Primary Care) Vital Signs: Last Vital Signs Temp 97.9 F 08/22/25 08:55 Pulse 68 08/22/25 08:55 Resp 14 08/22/25 08:55 BP 142/62 H 08/22/25 08:55 Pulse Ox 97 08/22/25 08:55 Oxygen Delivery Method Room Air 08/22/25 08:55 BMI result Body Mass Index 35.8 Tobacco/Smoking Status: Tobacco use Status Tobacco use date assessed 08/22/25 08/22/25 09:00 Patient Tobacco Use Status Former Tobacco user 08/22/25 08:55 Tobacco use type Cigarette 08/22/25 08:55 e-Cigarette/Vaping Use Never Used 08/22/25 08:55 Thrive Assessment: Date of Thrive Assessment Date Thrive assessed 02/15/25 08/22/25 08:53 Currently or been in a relationship where the following occur: No concerns reported Coding Level of Care Code Est Pt Level 4 (39705) Complex EM visit Add On G2211 Diagnoses PAD (peripheral artery disease) I73.9 Renovascular hypertension I15.0 Gastroesophageal reflux disease, unspecified whether esophagitis present K21.9 Esophagitis presence: esophagitis presence not specified CKD stage 3a, GFR 45-59 ml/min N18.31 Hyperlipidemia LDL goal <70 E78.5 Iron deficiency anemia, unspecified iron deficiency anemia type D50.9 Iron deficiency anemia type: unspecified iron deficiency Aortic valve stenosis, etiology of cardiac valve disease unspecified I35.0 Cardiac valve disease etiology: etiology unspecified Abdominal wall hernia K43.9 Bilateral hydronephrosis N13.30 Assessment & Plan Assessment & Plan (1) PAD (peripheral artery disease): Code(s): I73.9 - Peripheral vascular disease, unspecified Category: Medical (2) Renovascular hypertension: Code(s): I15.0 - Renovascular hypertension Category: Medical (3) GERD (gastroesophageal reflux disease): Code(s): K21.9 - Gastro-esophageal reflux disease without esophagitis Category: Medical Qualifiers: Esophagitis presence: esophagitis presence not specified Qualified Code(s): K21.9 - Gastro-esophageal reflux disease without esophagitis (4) CKD stage 3a, GFR 45-59 ml/min: Code(s): N18.31 - Chronic kidney disease, stage 3a Category: Medical (5) Hyperlipidemia LDL goal <70: Code(s): E78.5 - Hyperlipidemia, unspecified Category: Medical (6) IDALMIS (iron deficiency anemia): Code(s): D50.9 - Iron deficiency anemia, unspecified Category: Medical Qualifiers: Iron deficiency anemia type: unspecified iron deficiency Qualified Code(s): D50.9 - Iron deficiency anemia, unspecified (7) Aortic stenosis: Code(s): I35.0 - Nonrheumatic aortic (valve) stenosis Category: Medical Qualifiers: Cardiac valve disease etiology: etiology unspecified Qualified Code(s): I35.0 - Nonrheumatic aortic (valve) stenosis (8) Abdominal wall hernia: Code(s): K43.9 - Ventral hernia without obstruction or gangrene Category: Medical (9) Bilateral hydronephrosis: Code(s): N13.30 - Unspecified hydronephrosis Category: Medical Plan The patient will continue her current medications. She has blood pressure that has been difficult to manage, but recently it has been controlled. Office hypertension is well documented. She is followed by Nephrology. Recent renal function tests are stable. She is followed by Urology for hydronephrosis, and she has a repeat ultrasound scheduled. She will continue routine follow up with vascular surgery and Cardiology. She has echocardiogram with Cardiology for surveillance of aortic stenosis. She denies symptoms associated with this. Her LDL cholesterol remains above goal given peripheral arterial disease. See above notes regarding medications. At this time patient is electing to continue simvastatin 40 mg. I would like her to consider addition of Zetia. Recommended low-cholesterol diet. She has seen the dietitian. She denies symptoms associated with the anemia which is stable. Patient and I reviewed symptoms warranting ER evaluation. Continue ferrous gluconate 324 mg to 1 pill daily. She is on Nexium 20 mg a day which could impair iron absorption. She does have to stay on this however due to GERD. Refer to Dr. Taylor. She is overdue for colonoscopy, and she saw Gastroenterology at [facility] and EGD/colonoscopy was ordered, but she wants to transfer care to [facility]. Advised the patient this will likely cause a delay of care and diagnostic procedures, but she is okay with this, I referred her to Dr. Shepard at her request. She has an appointment scheduled with Dr. Garcia for evaluation of the abdominal wall hernia. Follow up in 4 months. Orders: Orders Lipid Panel 3 Months E78.5 - Hyperlipidemia, unspecified, I15.0 - Renovascular hypertension, I73.9 - Peripheral vascular disease, unspecified, K21.9 - Gastro- esophageal reflux disease without esophagitis, K76.0 - Fatty (change of) liver, not elsewhere classified Vitamin B12 and Folate 3 Months D64.9 - Anemia, unspecified, I15.0 - Renovascular hypertension, I73.9 - Peripheral vascular disease, unspecified, K21.9 - Gastro-esophageal reflux disease without esophagitis, K76.0 - Fatty (change of) liver, not elsewhere classified IRON PROFILE 3 Months D64.9 - Anemia, unspecified, I15.0 - Renovascular hypertension, I73.9 - Peripheral vascular disease, unspecified, K21.9 - Gastro- esophageal reflux disease without esophagitis, K76.0 - Fatty (change of) liver, not elsewhere classified Complete Blood Count Auto Diff 3 Months I15.0 - Renovascular hypertension, I73.9 - Peripheral vascular disease, unspecified, K21.9 - Gastro-esophageal reflux disease without esophagitis, K76.0 - Fatty (change of) liver, not elsewhere classified TSH reflex Free T4 3 Months I15.0 - Renovascular hypertension, I73.9 - Peripheral vascular disease, unspecified, K21.9 - Gastro-esophageal reflux disease without esophagitis, K76.0 - Fatty (change of) liver, not elsewhere classified Ferritin 3 Months D64.9 - Anemia, unspecified, I15.0 - Renovascular hypertension, I73.9 - Peripheral vascular disease, unspecified, K21.9 - Gastro- esophageal reflux disease without esophagitis, K76.0 - Fatty (change of) liver, not elsewhere classified Comprehensive Met. Panel 3 Months I15.0 - Renovascular hypertension, I73.9 - Peripheral vascular disease, unspecified, K21.9 - Gastro-esophageal reflux disease without esophagitis, K76.0 - Fatty (change of) liver, not elsewhere classified Referrals Gastroenterology Referral D50.9 - Iron deficiency anemia, unspecified, Z12.11 - Encounter for screening for malignant neoplasm of colon Hematology & Oncology Referral D50.9 - Iron deficiency anemia, unspecified
[2025-08-22 08:55] VITALS: BP 142/62; PULSE 68; RESP 14; TEMP 36.6; O2SAT 97; BMI 35.8
--- OUTSIDE RECORDS SUMMARY | 2025-08-22 09:26 | XMS_ITS | Encounter Summary ---
Author Organization [facility], Address [address] [place] [address] Phone Care Team Providers Care Sealer Dry Cell Name Role Phone Cierra Rae PA-C Primary Care Provider [phone] Encounter Details Date Type Department Care Team (Late st Contact Info) Description 12/07/2022 Documentation Only [facility], [address] [place] [address] Damion [place] [address] [place] [address] Social History Tobacco Use Types [...] Care Team (Late st Contact Info) Description 02/03/2026 9:40 AM EDT Office Visit [facility] [address] [address] Edenilson Dyer MD [address] [address] documented as of this encounter Visit Diagnoses Not on filedocumented in this encounter Care Teams Sealer Dry Cell Relationship Specialty Start Date End Date Cierra Rae PA-C [address] [place] [address] PCP - General Internal Medicine 08/05/25 documented as of this encounter
--- OUTSIDE RECORDS SUMMARY | 2025-08-22 09:26 | XMS_ITS | Clinical Summary ---
Author Organization [facility] Address [address] [facility] [address] [place] [address] Phone Care Team Providers Care Digital Solution Architect Name Role Phone Cierra Rae PA-C Primary Care Provider [phone] Allergies Active Allergy Reactions Criticality Noted Date [...] mg by mouth every other day Active aspirin (ST EVERARDO) 81 MG EC tablet Take 81 mg by mouth 1 (one) time each day Active cetirizine (ZyrTEC) 10 MG chewable tablet Chew 10 mg 1 (one) time each day Active hydrALAZINE 25 MG tablet Take 1 tablet (25 mg total) by mouth in the morning and 1 tablet (25 mg total) in the evening and 1 tablet (25 mg total) before bedtime. 270 tablet 3 5 08/05/20 26 Active hydrALAZINE 25 MG tablet Take 1 tablet (25 mg total) by mouth in the morning and 1 tablet (25 mg total) in the evening. 180 tablet 3 4 08/05/20 25 Discontinu ed(Reorder (does not appear on AVS)) Active Problems Problem Noted Date Diagnosed Date Hyperkalemia 06/14/2023 Abdominal aortic aneurysm 05/10/2023 Atrophy of right kidney 05/10/2023 Carotid artery stenosis 05/10/2023 Mild aortic valve stenosis 05/10/2023 Hypertension 01/09/2023 Dyslipidemia 01/09/2023 Hypokalemia 01/09/2023 Acute nontraumatic kidney injury 01/09/2023 Stage 3a chronic kidney disease 01/09/2023 Left ventricular hypertrophy 11/13/2019 Overview (08/04/2025): Last Assessment & Plan: Significant LV hypertrophy due to poorly controlled blood pressure Encounters Date Type Department Care Team Description 08/05/2025 9:40 AM EDT Office Visit [facility] [address] [address] Edenilson Dyer MD Stage 3a chronic kidney disease (HCC) (Primary Dx); Mild aortic valve stenosis; Hypokalemia; Hypertension; Hyperkalemia; Dyslipidemia; Carotid artery stenosis <Unspecified side>; Atrophy of right kidney; Other acute kidney failure (HCC); Abdominal aortic aneurysm (HCC) 08/05/2025 Documentation Only [facility] [address] [address] Edenilson Dyer MD 08/05/2025 Documentation Only [facility] [address] [address] Edenilson Dyer MD 08/05/2025 Office Communication [facility] [address] [address] Edenilson Dyer MD 08/05/2025 Refill [facility] [address] [phone] Austin Souza 08/03/2025 Orders Only [facility] [address] [address] Edenilson Dyer MD Stage 3a chronic kidney disease (HCC); Hypokalemia; Hypertension; Hyperkalemia; Dyslipidemia; Atrophy of right kidney; Other acute kidney failure (HCC); Abdominal aortic aneurysm (HCC) 07/31/2025 Orders Only [facility] [address] [address] Edenilson Dyer MD from Last 3 Months Family History Medical [...] Sign Reading Time Taken Comments Blood Pressure 180/84 08/05/2025 9:33 AM EDT Pulse 64 08/05/2025 9:33 AM EDT Temperature - - Respiratory Rate - - Oxygen Saturation 98% 08/05/2025 9:33 AM EDT Inhaled Oxygen Concentration - - Weight 80.3 kg (177 lb) 08/05/2025 9:33 AM EDT Height 154.9 cm (5' 1 ) 06/14/2024 10:10 AM EDT Body Mass Index 33.44 06/14/2024 10:10 AM EDT Plan of Treatment Upcoming Encounters Date Type Department Care Team (Late st Contact Info) Description 02/03/2026 9:40 AM EDT Office Visit [facility] [address] [place] [phone] Edenilson Dyer MD [address] [address] Health Maintenance Due Date Last Done Comments Breast Cancer Screening 1955 Colorectal Cancer Screening: Annual FOBT 2003 Colorectal Cancer Screening: Colonoscopy 2003 Colorectal Cancer Screening: Sigmoidoscopy 2003 Pneumococcal Vaccine: 50+ Years (3 of 3 - PCV) 01/08/2021 01/08/2020, 05/15/2013 Influenza Vaccine (#1) 2025 7, 11/29/2016 Pneumococcal Vaccine: Peds ( 0 to 5 Years) and At-Risk Patients (6 to 49 Years) Discontinued 01/08/2020, 05/15/2013 Hepatitis B Vaccine Aged Out No longe r eligible based on patient's age to complete this topic Procedures Procedure Name Priority Date/Time Associated Diagnosis Comments PTH, INTACT Routine 07/31/2025 6:53 AM EDT MAGNESIUM Routine 07/31/2025 6:53 AM EDT PHOSPHATE ( PHOSPHORUS) Routine 07/31/2025 6:53 AM EDT URIC ACID Routine 07/31/2025 6:53 AM EDT VITAMIN D 25 HYDROXY Routine 07/31/2025 6:53 AM EDT PROTEIN / CREATININE RATIO, URINE Routine 07/31/2025 6:53 AM EDT COMPREHENSIVE METABOLIC PANEL Routine 07/31/2025 6:53 AM EDT CBC AND DIFFERENTIAL Routine 07/31/2025 6:53 AM EDT from Last 3 Months Results * Protein, Total, Random Urine w/Creatinine (Protein/Creat Ratio) (07/31/2025 6:53 AM EDT) Creatinine, Ur 105.4 Not Estab. mg/dL [facility] Protein, Ur 19.7 Not Estab. mg/dL [facility] Urine Protein/Creatin ine Ratio 187 0 - 200 mg/g [facility] 07/31/2025 6:53 AM EDT 07/31/2025 Edenilson Dyer MD LAB URINE ORDERABLES Final Re sult [facility] [address] [place] [address] * Vitamin D 25 Hydroxy (07/31/2025 6:53 AM EDT) Vitamin D, 25-OH, Total 38.0 30.0 - 100.0 ng/mL [facility] Comment: Vitamin D deficiency has been defined by the [employer] and an Endocrine Society practice guideline as a level of serum 25-OH vitamin D less than 20 ng/mL (1,2). The Endocrine Society went on to further define vitamin D insufficiency as a level between 21 and 29 ng/mL (2). 1. IOM ([place] of [employer]). 2010. Dietary reference intakes for calcium and D. [place]: The National Academies Press. 2. Taemka MF, Corazon SEE, Jonathan OLSON, et al. Evaluation, treatment, and prevention of vitamin D deficiency: an Endocrine Society clinical practice guideline. JCEM. 2010; 96(7):1911-30. 07/31/2025 6:53 AM EDT 07/31/2025 Edenilson Dyer MD LAB BLOOD ORDERABLES Final Re sult [facility] [address] [place] [address] * (ABNORMAL) CBC and Differential (07/31/2025 6:53 AM EDT) WBC 4.5 3.4 - 10.8 x10E3/uL [facility] RBC 3.43(L) 3.77 - 5.28 x10E6/uL [facility] Hemoglobin 10.3(L) 11.1 - 15.9 g/dL [facility] Hematocrit 31.5(L) 34.0 - 46.6 % [facility] MCV 92 79 - 97 fL [facility] MCH 30.0 26.6 - 33.0 pg [facility] MCHC 32.7 31.5 - 35.7 g/dL [facility] RDW 14.9 11.7 - 15.4 % [facility] Platelets 244 150 - 450 x10E3/uL [facility] Neutrophils Relative 51 Not Estab. % [facility] Lymphocytes Relative 32 Not Estab. % [facility] Monocytes 9 Not Estab. % [facility] Eosinophils Relative 6 Not Estab. % [facility] Basophils Relative 2 Not Estab. % [facility] Neutrophils Absolute 2.3 1.4 - 7.0 x10E3/uL [facility] Lymphocytes Absolute 1.5 0.7 - 3.1 x10E3/uL [facility] Monocytes Absolute 0.4 0.1 - 0.9 x10E3/uL [facility] Eosinophils Absolute 0.3 0.0 - 0.4 x10E3/uL [facility] Basophils Absolute 0.1 0.0 - 0.2 x10E3/uL [facility] Immature Granulocytes 0 Not Estab. % [facility] Immature Grans (Absolute) 0.0 0.0 - 0.1 x10E3/uL [facility] 07/31/2025 6:53 AM EDT 07/31/2025 Edenilson Dyer MD LAB BLOOD ORDERABLES Final Re sult Performing Organization Address [facility]/ZIP Co de Phone Number [facility] [address] [place] [address] * Uric Acid (07/31/2025 6:53 AM EDT) Uric Acid 7.9 3.1 - 7.9 mg/dL [facility] Comment:Therapeutic target f or gout patients: <6.0 07/31/2025 6:53 AM EDT 07/31/2025 Edenilson Dyer MD LAB BLOOD ORDERABLES Final Re sult Performing Organization Address [facility] Co de Phone Number [facility] [address] [place] [address] * Phosphorus (07/31/2025 6:53 AM EDT) Phosphorus 3.9 3.0 - 4.3 mg/dL [facility] 07/31/2025 6:53 AM EDT 07/31/2025 Edenilson Dyer MD LAB BLOOD ORDERABLES Final Re sult Performing Organization Address City/[facility] Co de Phone Number [facility] [address] [place] [address] * PTH, Intact (07/31/2025 6:53 AM EDT) PTH 48 15 - 65 pg/mL [facility] 07/31/2025 6:53 AM EDT 07/31/2025 us Edenilson Dyer MD LAB BLOOD ORDERABLES Final Re sult [facility] [address] [place] [address] * Magnesium (07/31/2025 6:53 AM EDT) Pathologist [facility] Magnesium 2.2 1.6 - 2.3 mg/dL [facility] 07/31/2025 6:53 AM EDT 07/31/2025 Edenilson Dyer MD LAB BLOOD ORDERABLES Final Re sult Performing Organization Address City/[facility]/ZIP Co de Phone Number [facility] [address] [place] [address] * (ABNORMAL) Comprehensive Metabolic Panel (07/31/2025 6:53 AM EDT) Pathologist [facility] Glucose 102(H) 70 - 99 mg/dL [facility] BUN 24 8 - 27 mg/dL [facility] Creatinine 1.07(H) 0.57 - 1.00 mg/dL [facility] eGFR CKD-EPI CR 2020 56(L) >59 mL/min/1.7 3 [facility] BUN/Creatinine Ratio 22 12 - 28 [facility] Sodium 138 134 - 144 mmol/L [facility] Potassium 5.0 3.5 - 5.2 mmol/L [facility] Chloride 103 96 - 106 mmol/L [facility] Bicarbonate (CO2) 19(L) 20 - 29 mmol/L [facility] Calcium 9.5 8.7 - 10.3 mg/dL [facility] Total Protein 7.0 6.0 - 8.5 g/dL [facility] Albumin 4.5 3.8 - 4.8 g/dL [facility] Globulin 2.5 1.5 - 4.5 g/dL [facility] Total Bilirubin 0.3 0.0 - 1.2 mg/dL [facility] Alkaline Phosphatase 60 44 - 121 IU/L [facility] Comment: Effective August 12, 2025 Alkaline Phosphatase reference interval will be changing to: Age Male Female 0 - 5 days 47 - 127 47 - 127 6 - 10 days 29 - 242 29 - 242 11 - 20 days 109 - 357 109 - 357 21 - 30 days 94 - 494 94 - 494 1 - 2 months 149 - 539 149 - 539 3 - 6 months 131 - 452 131 - 452 7 - 11 months 117 - 401 117 - 401 12 months - 6 years 158 - 369 158 - 369 7 - 12 years 150 - 409 150 - 409 13 years 156 - 435 78 - 227 14 years 114 - 375 64 - 161 15 years 88 - 279 56 - 134 16 years 74 - 207 51 - 121 17 years 63 - 161 47 - 113 18 - 20 years 51 - 125 42 - 106 21 - 50 years 47 - 123 41 - 116 51 - 80 years 49 - 135 51 - 125 >80 years 48 - 129 48 - 129 AST (SGOT) 15 0 - 40 IU/L [facility] ALT (SGPT) 12 0 - 32 IU/L [facility] 07/31/2025 6:53 AM EDT 07/31/2025 us Edenilson Dyer MD LAB BLOOD ORDERABLES Final Re sult [facility] [address] [place] [phone] from Last 3 Months Insurance Medicare [facility] Medicare [facility] Medicare Care Teams Digital Solution Architect Relationship Specialty Start Date End Date Cierra Rae PA-C [address] [place] [id number] PCP - General Internal Medicine 08/05/25
--- OUTSIDE RECORDS SUMMARY | 2025-08-22 09:26 | XMS_ITS | Clinical Summary ---
Author Organization [address] [place] [address] [place] [phone] Phone Care Team Providers Care Open Soaper Tender Name Role Phone Milagros Mcdonald MD Primary Care Provider [phone] Allergies Active Allergy Reactions Criticality Noted Date [...] deficiency 02/26/2016 IFG (impaired fasting glucose) 02/13/2016 Encounters Date Type Department Care Team Description 07/22/2025 Telephone [facility] Cardiology [facility] [address] [facility] [address] [place] [address] Tuan Lund MD from Last 3 Months Immunizations Name Administration Dates Next Due Influenza trivalent, 0.5mL, preservative free (Fluarix; FluLaval; Fluzone) ages 6mo and older (Afluria) 3 years and older 08/28/2017,11/29/2016 Pneumococcal polysaccharide 23 valent (Pneumovax 23) 2yo and older 05/15/2013 Tdap Tetanus diptheria acell ular pertussis (Boostrix; Adacel) 7yo and older 03/22/2012 Surgical History Surgery Date Site/Laterality Comments SECTION [id number] PROCEDURE: HISTORICAL DELIVERY; COMMENT: x 2 CHOLECYSTECTOMY 1982 PROCEDURE: MO CHOLECYSTECTOMY APPENDECTOMY 1982 PROCEDURE: HISTORICAL APPENDECTOMY TONSILLECTOMY ? PROCEDURE: HISTORICAL TONSILLECTOMY OTHER SURGICAL HISTORY ? PROCEDURE: MO SINUSOT SPHENOID W/MUCOSAL STRIPPING/RMVL POLYP Medical History [...] 08/07/2024 10:49 AM EDT Plan of Treatment Health Maintenance Due Date Last Done Comments Breast Cancer Screening 1955 Zoster Vaccines (1 of 2) 2004 Pneumococcal Vaccine: 50+ Years (2 of 2 - PCV) 05/15/2014 05/15/2013 DTaP,Tdap,and Td Vaccines (2 - Td or Tdap) 03/22/2022 03/22/2012 Colorectal Cancer Screening: Colonoscopy 10/27/2022 Falls Risk Assessment 10/27/2022 Medicare Annual Wellness Visit 10/27/2022 Osteoporosis Screening (Bone Density Screening) 10/27/2022 Social Influencers of Health Screening 10/27/2022 Depression Screening 11/28/2024 COVID-19 Vaccine (1 - season) 2025 Influenza Vaccine (#1) 2025 2, 09/07/2021, 08/25/2020, Additional history exists Hypertension/CHF/CAD Annual BMP Blood Test 07/31/2026 07/31/2025, 07/31/2025, 12/11/2024, Additional history exists RSV Immunization Adult Patients (1 - 1-dose [...] Recently Relevant to Health Maintenance Insurance MEDICARE [facility] Care Teams Open Soaper Tender Relationship Specialty Start Date End Date Milagros Mcdonald MD PCP - General Internal Medicine 03/12/22
--- OUTSIDE RECORDS SUMMARY | 2025-08-22 09:26 | XMS_ITS | Encounter Summary ---
Author Organization [facility], Address [address] [place] [address] Phone Care Team Providers Care Project Analyst Name Role Phone Cierra Rae PA-C Primary Care Provider [phone] Encounter Details Date Type Department Care Team (Late st Contact Info) Description 12/07/2022 Documentation Only [facility], [address] [place] [address] Damion Dalton PA [address] [place] [address] Social History Tobacco Use Types [...] Visit [facility] [address] [address] Edenilson Dyer MD [address] [address] documented as of this encounter Visit Diagnoses Not on filedocumented in this encounter Care Teams Project Analyst Relationship Specialty Start Date End Date Cierra Rae PA-C [address] [place] [address] PCP - General Internal Medicine 08/05/25 documented as of this encounter
--- OUTSIDE RECORDS SUMMARY | 2025-08-22 09:26 | XMS_ITS | Encounter Summary ---
Author Organization [facility], Address [address] [place] [address] Phone Care Team Providers Care Knot Borer Name Role Phone Cierra Rae PA-C Primary Care Provider [phone] Encounter Details Date Type Department Care Team (Late st Contact Info) Description 12/07/2022 Documentation Only [facility], [address] [place] [address] Damion Dalton PA [address] [place] [address] Social History Tobacco Use Types [...] Visit [facility] [address] [address] Edenilson Dyer MD [address] [address] documented as of this encounter Visit Diagnoses Not on filedocumented in this encounter Care Teams Knot Borer Relationship Specialty Start Date End Date Cierra Rae PA-C [address] [place] [address] PCP - General Internal Medicine 08/05/25 documented as of this encounter
== END 2025-08-22 09:43 | disposition home or self-care (01) ==
LOC: HO.HMCFM 08:49
PROVIDERS: PCP Physician Assistant Medical; Visit Provider Physician Assistant Medical
DX: I12.9 Hypertensive chronic kidney disease with stage 1 through stage 4 chronic kidney disease, or unspecified chronic kidney disease (principal); N18.31 Chronic kidney disease, stage 3a; I73.9 Peripheral vascular disease, unspecified; K21.9 Gastro-esophageal reflux disease without esophagitis; E78.5 Hyperlipidemia, unspecified; D50.9 Iron deficiency anemia, unspecified; I35.0 Nonrheumatic aortic (valve) stenosis; K43.9 Ventral hernia without obstruction or gangrene; N13.30 Unspecified hydronephrosis

== ENCOUNTER → 2025-08-22 08:49 | Outpatient (BNVA) | payer MEDICARE, SELFPAY | PROVIDERS: PCP Physician Assistant Medical; Visit Provider Physician Assistant Medical | DX: I73.9 Peripheral vascular disease, unspecified (principal); I15.0 Renovascular hypertension; K21.9 Gastro-esophageal reflux disease without esophagitis; N18.31 Chronic kidney disease, stage 3a; E78.5 Hyperlipidemia, unspecified; D50.9 Iron deficiency anemia, unspecified; I35.0 Nonrheumatic aortic (valve) stenosis; K43.9 Ventral hernia without obstruction or gangrene; N13.30 Unspecified hydronephrosis; Z79.899 Other long term (current) drug therapy | CPT/HCPCS: 99212 ==

== ENCOUNTER → 2025-09-30 13:05 | Outpatient (BNV) | payer MEDICARE, SELFPAY | PROVIDERS: PCP Physician Assistant Medical; Referring Provider Physician Assistant Medical; Visit Provider Internal Medicine Medical Oncology | DX: D64.9 Anemia, unspecified (principal); N18.31 Chronic kidney disease, stage 3a | CPT/HCPCS: 99204 ==

== ENCOUNTER 2025-10-04 10:10 | Outpatient (REF) | payer MEDICARE, SELFPAY ==
--- OUTSIDE RECORDS SUMMARY | 2025-09-28 22:59 | XMS_ITS | Continuity of Care Document ---
Author Organization [facility] Address [address] [place] [address]- Care Team Providers Care Airframe And Power Plant Mechanic Name Role Phone Cierra Allan Primary Care Physician Encounter [facility] Date(s): 08/29/25 - 09/28/25 [facility] [address] [place] [phone] Encounter Type: Triage Allergies, Adverse Reactions, Alerts Substance Criticality Severity Reaction Reaction Severity Status sulfADIAZINE rash Active chlorthalidone 1 gi distress A ctive doxazosin Other Active Zetia Active rosuvastatin Nausea Other Active iodine rash Active amLODIPine 2 gi distress Activ e 1diarrhea, bloating 2swelling-face, legs Immunizations Given and Recorded Vaccine Date Status Refusal Reason SARS-CoV-2 mRNA (fgwmknc-xoef-jyjvo) vax 03/19/22 Recorded SARS-CoV-2 mRNA (ygufvji-foim-hawoa) vax 02/25/22 Recorded influenza virus vaccine, inactivated 09/07/21 King rded influenza virus vaccine, inactivated 08/25/20 King rded influenza virus vaccine, inactivated 10/09/19 King rded influenza virus vaccine, inactivated 08/28/17 King rded influenza virus vaccine, inactivated 11/29/16 King rded influenza virus vaccine, inactivated 09/14/15 King rded pneumococcal 23-valent vaccine 01/08/20 Recorded tetanus/diphtheria/pertussis, acel(Tdap) 01/08/20 Recorded Medications Allergy (Loratadine) = 10 mg, By Mouth, Daily at bedtime, 0 Refills, Maintenance, 11/09/19 7:36:13 AM EST Start Date: 11/09/19 Status: Ordered Medication Dispense Status: Completed Total Allowed Fills: 1 Fills Dispensed: 0 aspirin 81 mg oral tablet, chewable = 81 mg, By Mouth, Daily, # 30 tablet, 11 Refills, Maintenance, 04/12/23 12:52:00 PM EDT, Chew Tablet, [facility] #[id number], Partial fill upon patient request if the prescription is for a schedule II opioid drug., 154.94, cm, 04/12/23 11:37:00 EDT, Height, 72.8, kg, 04/06/23 6:28:00 EDT, Dry Weight Start Date: 04/12/23 Stop Date: 04/06/24 Status: Ordered Medication Dispense Status: Completed Quantity: 30.0 Unit: tablet Total Allowed Fills: 12 Fills Dispensed: 0 gabapentin 100 mg oral capsule See Instructions, Take 1 cap By Mouth Daily at Bedtime for 1 Week, then 1 cap By Mouth Twice Daily for 1 Week, then 1 cap By Mouth Three Times Daily thereafter, # 30 capsule, Refills 0, Tot. Refills 0, Maintenance, 07/13/25 11:29:00 AM EDT, Instructions Replace Required Details, Route to Pharmacy Electronically, [facility] #[id number], Partial fill upon patient request if the prescription is for a schedule II opioid drug., 150, cm, 07/13/25 11:15:00 EDT, Height, 75, kg, 01/26/24 18:58:00 EST, Dry Weight Start Date: 07/13/25 Status: Ordered Medication Dispense Status: Completed Quantity: 30.0 Unit: capsule Total Allowed Fills: 1 Fills Dispensed: 0 hydrALAZINE 25 mg oral tablet See Instructions, 1 tablet By Mouth 3 times a day 90 days, # 270 tablet, Refills 1, Tot. Refills 1,Maintenance, 02/28/24 9:55:00 AM EDT, Instructions Replace Required Details, Route to Pharmacy Electronically, [facility] #[id number], Partial fill upon patient request if the prescription is for aschedule II opioid drug., 150, cm, 02/28/24 9:15:00 EDT, Height, 75, kg, 01/26/24 18:58:00 EST, Dry Weight Start Date: 02/28/24 Status: Ordered Medication Dispense Status: Completed Quantity: 270.0 Unit: tablet Total Allowed Fills: 2 Fills Dispensed: 0 Nexium 20 mg oral enteric coated capsule 1 capsule = 20 mg, By Mouth, Daily, # 30 capsule, 0 Refills, Maintenance, 12/07/21 11:37:00 AM EST, EC Capsule, Partial fill upon patient request if the prescription is for a schedule II opioid drug. Start Date: 12/07/21 Status: Ordered Medication Dispense Status: Completed Quantity: 30.0 Unit: capsule Total Allowed Fills: 1 Fills Dispensed: 0 Repatha Prefilled Syringe 140 mg/mL subcutaneous solution = 140 mg, Subcutaneous Infusion, Every 14 days, # 2 mL, 5 Refills, Maintenance, 02/28/24 11:31:00 AM EDT, [facility] #[id number], Partial fill upon patient request if the prescription is for a schedule II opioid drug., 150, cm, 02/28/24 9:15:00 EDT, Height, 75, kg, 01/26/24 18:58:00 EST, Dry Weight Start Date: 02/28/24 Status: Ordered Medication Dispense Status: Completed Quantity: 2.0 Unit: mL Total Allowed Fills: 6 Fills Dispensed: 0 simvastatin 40 mg oral tablet 1, tablet, By Mouth, Daily at bedtime, # 90 tablet, Refills 1, Tot. Refills 1, Maintenance, :47:00 PM EDT, Route to Pharmacy Electronically, [facility] #[id number], 150, cm, 02/28/24 9:15:00 EDT, Height, 75, kg, 01/26/24 18:58:00 EST, Dry Weight Start Date: 05/18/24 Status: Ordered Medication Dispense Status: Completed Quantity: 90.0 Unit: tablet Total Allowed Fills: 2 Fills Dispensed: 0 Tylenol 325 mg oral tablet 975 mg, 3, tablet, By Mouth, Every 6 hours, PRN, Refills 0, Maintenance, Pain , Mild, 04/12/23 12:52:00 PM EDT, Partial fill upon patient request if the prescription is for a schedule II opioid drug. Start Date: 04/12/23 Status: Ordered Medication Dispense Status: Completed Total Allowed Fills: 1 Fills Dispensed: 0 Vitamin B-12 100 mcg oral tablet 100 mcg, 1, tablet, By Mouth, Daily, Refills 0, Maintenance, 05/17/25 10:24:00 AM EDT, Partial fill upon patient request if the prescription is for a schedule II opioid drug. Start Date: 05/17/25 Status: Ordered Medication Dispense Status: Completed Total Allowed Fills: 1 Fills Dispensed: 0 Vitamin D3 1000 intl units oral tablet 1 tablet = 1,000 International_Units, By Mouth, Daily, 0 Refills, Maintenance, 11/09/19 7:36:58 AM EST Start Date: 11/09/19 Status: Ordered Medication Dispense Status: Completed Total Allowed Fills: 1 Fills Dispensed: 0 Voltaren Arthritis Pain 1% topical gel = 2 Gm, Topically, 4 times a day, PRN Pain , Moderate, not to exceed 8 grams/day/single joint of upper extremities, # 100 Gm, 0 Refills, Maintenance, 11/16/23 3:46:00 PM EST, [facility] #[id number], Partial fill upon patient request if the prescription is for a schedule II opioid drug., 2 Gm Topically 4 times a day,PRN:Pain , Moderate,Instr:not to exceed 8 grams/day/single joint of upper extremities, 150.5, cm, 11/16/23 15:15:00 EST, Height, 74, kg, 06/27/23 9:57:00 EDT, Dry Weight Start Date: 11/16/23 Status: Ordered Medication Dispense Status: Completed Quantity: 100.0 Unit: g Total Allowed Fills: 1 Fills Dispensed: 0 ZyrTEC 10 mg oral tablet 1 tablet = 10 mg, By Mouth, Daily, 0 Refills, Maintenance, 01/31/24 2:43:00 PM EST, Partial fill uponpatient request if the prescription is for a schedule II opioid drug. Start Date: 01/31/24 Status: Ordered Medication Dispense Status: Completed Total Allowed Fills: 1 Fills Dispensed: 0 Problem List Condition Confirmation Course Effective Dates Status H ealth Status Informant AAA (abdominal aortic aneurysm) Confirmed Active Acute blood loss anemia Confirmed Active Arthritis Confirmed Active Atherosclerosis of arteries Confirmed Active Atrophy of right kidney Confirmed Active Carotid artery stenosis Confirmed Active Carotid bruit Confirmed Active CKD (chronic kidney disease) Confirmed Active COVID-19 Confirmed 11/23/21 Active Chronic GERD Confirmed Active Ventral hernia Confirmed Active History of Helicobacter pylori infection Confirmed Active Hyperlipidemia Confirmed Active Hypertension 1 Confirmed Active Dyspepsia Confirmed Active Iron deficiency anemia Confirmed Active IBS (irritable bowel syndrome) Confirmed Active Mild aortic stenosis Confirmed Active RUQ abdominal pain Confirmed Active Severe obesity (BMI 35.0-39.9) with comorbidity Confirmed Active 1Pt has digital home BP cuff Social History Social History Type Response Sexual Sexually involved in last 6 months: No. Tobacco Use: Former Smoker. Started at age: 15 Years. Stopped at age: 66 Years. Sex Sex Representation Female (finding) Patient Care team information Care Team Personnel Name: Jenn Aaron RN Position: S RN Member Role: Primary Care Nurse Name: Milagros Corcoran RN Position: S RN Supv Member Role: Primary Care Nurse Name: Pallavi Almeida RN Position: S RN Member Role: Primary Care Nurse Name: Edenilson Martinez MD Position: [facility] Renal MD Member Role: Lifetime Consulting Physician Address: [address] [facility] [place], [place] [address] Telecom: Name: Cierra Allan Position: Reference Physician Member Role: PCP Address: [address] [place] [address] [place], [place] [address] Telecom: Name: Katlyn Larsen RN Position: S RN Member Role: Primary Care Nurse Name: Osbaldo Carvajal MD Position: [facility] Outreach Member Role: Lifetime Consulting Physician Address: [address] [facility] [place] [address] [facility] Telecom: Name: Katelyn Saunders RN Position: [facility] RN Member Role: Primary Care Nurse Care Team Related Persons Name: GIO BENNETT Name: BROOKLYNN VAZQUEZ Insurance Providers Guarantor name: RAJAT VAZQUEZ Health Plan Information #: 1 Payer: MEDICARE B Payer Identifier: NA Member Number: [id number] Group Number: NA Subscriber Identifier: NA Relationship to Subscriber: self Coverage Type: NA Coverage Verification Date: NA Telecom: NA Address: NA Health Plan Information #: 2 Payer: MEDEX SECONDARY ONLY Payer Identifier: NA Member Number: [id number] Group Number: NA Subscriber Identifier: NA Relationship to Subscriber: self Coverage Type: Medicare Other Coverage Verification Date: NA Telecom: NA Address: NA
--- NOTE | ~2025-10-04 | US_ITS ---
CLINICAL HISTORY: N20.0 - Calculus of kidney,crossing vessel stricture of ureter --- Additional Notes or Special Instructions: wo hydronephrosis US Renal Comparison: None provided Findings: Right kidney normal size and echotexture, 7.5 cm length. Left kidney normal size and echotexture, 10.8 cm length. No hydronephrosis of either kidney. Normal color Doppler IMPRESSION: 1. Normal kidneys. This document has been electronically signed by: Cesar Arteaga MD on 10/06/2025 09:08:20
--- OUTSIDE RECORDS SUMMARY | 2025-10-04 11:59 | XMS_ITS | Encounter Summary ---
Author Organization [facility], Address [address] [place] [address] Phone Care Team Providers Care Concrete Pourer Name Role Phone Cierra Rae PA-C Primary Care Provider [phone] Encounter Details Date Type Department Care Team (Late st Contact Info) Description 12/07/2022 Documentation Only [facility], [address] [place] [address] Damion Dalton [place] [address] [place] [address] Social History Tobacco Use Types [...] Visit [facility] [address] [address] Edenilson Dyer MD [address] [address] documented as of this encounter Visit Diagnoses Not on filedocumented in this encounter Care Teams Concrete Pourer Relationship Specialty Start Date End Date Cierra Rae PA-C [address] [place] [address] PCP - General Internal Medicine 08/05/25 documented as of this encounter
--- OUTSIDE RECORDS SUMMARY | 2025-10-04 11:59 | XMS_ITS | Clinical Summary ---
Author Organization [facility] Address [address] [facility] [address] [place] [address] Phone Care Team Providers Care Adjunct Physical Education Instructor Name Role Phone Cierra Rae PA-C Primary Care Provider [phone] Allergies Active Allergy Reactions Criticality Noted Date [...] mg total) before bedtime. 270 tablet 3 08/05/2025 Active Active Problems Problem Noted Date Diagnosed [...] Office Visit [facility] [address] [phone] Edenilson Dyer MD Stage 3a chronic kidney disease (HCC) (Primary Dx); Mild aortic valve stenosis; Hypokalemia; Hypertension; Hyperkalemia; Dyslipidemia; Carotid artery stenosis <Unspecified side>; Atrophy of right kidney; Other acute kidney failure (HCC); Abdominal aortic aneurysm (HCC) 08/05/2025 Documentation Only [facility] [address] [phone] Edenilson Dyer MD 08/05/2025 Documentation Only [facility] [address] [phone] Edenilson Dyer MD 08/05/2025 Refill [facility] [address] [phone] Austin Souza 08/03/2025 Orders Only [facility] [address] [phone] Edenilson Dyer MD Stage 3a chronic kidney disease (HCC); Hypokalemia; Hypertension; Hyperkalemia; Dyslipidemia; Atrophy of right kidney; Other acute kidney failure (HCC); Abdominal aortic aneurysm (HCC) 07/31/2025 Orders Only [facility] [address] [address] Edenilson Dyer MD from Last 3 Months [...] Office Visit [facility] [address] [address] Edenilson Dyer MD [address] [address] Health Maintenance Due Date Last Done Comments [...] Creatinine, Ur 105.4 Not Estab. mg/dL [facility] Protein, Ur 19.7 Not Estab. mg/dL [facility] Urine Protein/Creatin ine Ratio 187 0 - 200 mg/g creat [facility] 07/31/2025 6:53 AM EDT 07/31/2025 us Edenilson Dyer MD LAB URINE ORDERABLES Final Re sult [facility] [address] [place] [address] * Vitamin D 25 Hydroxy (07/31/2025 6:53 AM EDT) Vitamin D, 25-OH, Total 38.0 30.0 - 100.0 ng/mL [facility] Comment: Vitamin D deficiency has been defined by the [place]ell of Medicine and an Endocrine Society practice guideline as a level of serum 25-OH vitamin D less than 20 ng/mL (1,2). The Endocrine Society went on to further define vitamin D insufficiency as a level between 21 and 29 ng/mL (2). 1. IOM ([place] of Medicine). 2010. Dietary reference intakes for calcium and D. [place]: The National Academies Press. 2. Tameka MF, Corazon SEE, Jonathan OLSON, et al. Evaluation, treatment, and prevention of vitamin D deficiency: an Endocrine Society clinical practice guideline. JCEM. 2010; 96(7):1911-30. 07/31/2025 6:53 AM EDT 07/31/2025 us Edenilson Dyer MD LAB BLOOD ORDERABLES Final Re sult Performing Organization Address City/[facility]/ZIP Co de Phone Number [employer] [facility] [address] [place] [address] * (ABNORMAL) CBC and Differential (07/31/2025 6:53 AM EDT) WBC 4.5 3.4 - 10.8 x10E3/uL [facility] RBC 3.43(L) 3.77 - 5.28 x10E6/uL [facility] Hemoglobin 10.3(L) 11.1 - 15.9 g/dL [facility] Hematocrit 31.5(L) 34.0 - 46.6 % [facility] MCV 92 79 - 97 fL [facility] MCH 30.0 26.6 - 33.0 pg [facility] MCHC 32.7 31.5 - 35.7 g/dL [facility] RDW 14.9 11.7 - 15.4 % [facility] Platelets 244 150 - 450 x10E3/uL [facility] Neutrophils Relative 51 Not Estab. % [facility] Lymphocytes Relative 32 Not Estab. % [facility] Monocytes 9 Not Estab. % [facility] Eosinophils Relative 6 Not Estab. % [facility] Basophils Relative 2 Not Estab. % [facility] Neutrophils Absolute 2.3 1.4 - 7.0 x10E3/uL [facility] Lymphocytes Absolute 1.5 0.7 - 3.1 x10E3/uL [facility] Monocytes Absolute 0.4 0.1 - 0.9 x10E3/uL [facility] Eosinophils Absolute 0.3 0.0 - 0.4 x10E3/uL [facility] Basophils Absolute 0.1 0.0 - 0.2 x10E3/uL [facility] Immature Granulocytes 0 Not Estab. % [facility] Immature Grans (Absolute) 0.0 0.0 - 0.1 x10E3/uL [facility] 07/31/2025 6:53 AM EDT 07/31/2025 us Edenilson Dyer MD LAB BLOOD ORDERABLES Final Re sult [facility] [address] [place] [address] * Uric Acid (07/31/2025 6:53 AM EDT) Uric Acid 7.9 3.1 - 7.9 mg/dL [facility] Comment:Therapeutic target f or gout patients: <6.0 07/31/2025 6:53 AM EDT 07/31/2025 Edenilson Dyer MD LAB BLOOD ORDERABLES Final Re sult [facility] [address] [place] [address] * Phosphorus (07/31/2025 6:53 AM EDT) Phosphorus 3.9 3.0 - 4.3 mg/dL [facility] 07/31/2025 6:53 AM EDT 07/31/2025 Edenilson Dyer MD LAB BLOOD ORDERABLES Final Re sult [facility] [place] [address] [place] [address] * PTH, Intact (07/31/2025 6:53 AM EDT) PTH 48 15 - 65 pg/mL [facility] 07/31/2025 6:53 AM EDT 07/31/2025 Edenilson Dyer MD LAB BLOOD ORDERABLES Final Re sult [facility] [place] [address] [place] [address] * Magnesium (07/31/2025 6:53 AM EDT) Magnesium 2.2 1.6 - 2.3 mg/dL [facility] 07/31/2025 6:53 AM EDT 07/31/2025 us Edenilson Dyer MD LAB BLOOD ORDERABLES Final [facility] [address] [place] [address] * (ABNORMAL) Comprehensive Metabolic Panel (07/31/2025 6:53 AM EDT) Glucose 102(H) 70 - 99 mg/dL [facility] BUN 24 8 - 27 mg/dL [facility] Creatinine 1.07(H) 0.57 - 1.00 mg/dL [facility] eGFR CKD-EPI CR 2020 56(L) >59 mL/min/1.7 3 [facility] BUN/Creatinine Ratio 22 12 - 28 [facility] Sodium 138 134 - 144 mmol/L [facility] Potassium 5.0 3.5 - 5.2 mmol/L [facility] Chloride 103 96 - 106 mmol/L [facility] Bicarbonate (CO2) 19(L) 20 - 29 mmol/L [facility] Calcium 9.5 8.7 - 10.3 mg/dL [facility] Total Protein 7.0 6.0 - 8.5 g/dL [facility] Albumin 4.5 3.8 - 4.8 g/dL [facility] Globulin 2.5 1.5 - 4.5 g/dL [facility] Total Bilirubin 0.3 0.0 - 1.2 mg/dL [facility] Alkaline Phosphatase 60 44 - 121 IU/L [facility] Comment: Effective August 12, 2025 Alkaline Phosphatase [...] (SGOT) 15 0 - 40 IU/L [facility] ALT (SGPT) 12 0 - 32 IU/L [facility] 07/31/2025 6:53 AM EDT 07/31/2025 us Edenilson Dyer MD LAB BLOOD ORDERABLES Final Re sult [facility] [address] [place] [address] from Last 3 Months Insurance Medicare [facility] Medicare [facility] Medicare Care Teams Adjunct Physical Education Instructor Relationship Specialty Start Date End Date Cierra Rae PA-C [address] [place] [id number] PCP - General Internal Medicine 08/05/25
--- OUTSIDE RECORDS SUMMARY | 2025-10-04 11:59 | XMS_ITS | Encounter Summary ---
Author Organization [facility], Address [address] [place] [address] Phone Care Team Providers Care Pressure Steamer Tender Name Role Phone Cierra Rae PA-C Primary Care Provider [phone] Encounter Details Date Type Department Care Team (Late st Contact Info) Description 12/07/2022 Documentation Only [facility], [address] [place] [address] Damion Dalton [place] [address] [place] [address] Social History Tobacco Use [...] Visit [facility] [address] [address] Edenilson Dyer MD [address] [address] documented as of this encounter Visit Diagnoses Not on filedocumented in this encounter Care Teams Pressure Steamer Tender Relationship Specialty Start Date End Date Cierra Rae PA-C [address] [place] [address] PCP - General Internal Medicine 08/05/25 documented as of this encounter
--- OUTSIDE RECORDS SUMMARY | 2025-10-04 11:59 | XMS_ITS | Encounter Summary ---
Author Organization [facility], Address [address] [place] [address] Phone Care Team Providers Care Clerk Travel Reservations Name Role Phone Cierra Rae PA-C Primary Care Provider [phone] Encounter Details Date Type Department Care Team (Late st Contact Info) Description 12/07/2022 Documentation Only [facility], [address] [place] [address] Damion Dalton [place] [address] [place] [address] Social History Tobacco Use Types [...] the [facility] [address] [address] Edenilson Dyer MD [address] [address] documented as of this encounter Visit Diagnoses Not on filedocumented in this encounter Care Teams Clerk Travel Reservations Relationship Specialty Start Date End Date Cierra Rae PA-C [address] [place] [address] PCP - General Internal Medicine 08/05/25 documented as of this encounter
--- OUTSIDE RECORDS SUMMARY | 2025-10-04 11:59 | XMS_ITS | Clinical Summary ---
Author Organization [address] [place] [address] [place] [address] Phone Care Team Providers Care Contract Recruiter Name Role Phone Milagros Mcdonald MD Primary Care Provider [phone] Allergies Active Allergy Reactions Criticality Noted Date [...] Encounters Date Type Department Care Team Description 09/27/2025 Telephone [facility] [address] [place] [address] Tuan Lund MD 07/22/2025 Telephone [facility] [address] [place] [address] Tuan Lund MD from Last 3 Months Immunizations Immunization Administration Dates Next Due Influenza trivalent, 0.5mL, preservative free (Fluarix; FluLaval; Fluzone) ages 6mo and older (Afluria) 3 years and older 08/28/2017,11/29/2016 Pneumococcal polysaccharide 23 valent (Pneumovax 23) 2yo and older 05/15/2013 Tdap Tetanus diptheria acell ular pertussis (Boostrix; Adacel) 7yo and older 03/22/2012 Surgical History Surgery Date Site/Laterality Comments SECTION 1975,1977 PROCEDURE: HISTORICAL DELIVERY; COMMENT: x 2 CHOLECYSTECTOMY 1982 PROCEDURE: DE CHOLECYSTECTOMY APPENDECTOMY 1982 PROCEDURE: HISTORICAL APPENDECTOMY TONSILLECTOMY ? PROCEDURE: HISTORICAL TONSILLECTOMY OTHER SURGICAL HISTORY ? PROCEDURE: DE SINUSOT SPHENOID W/MUCOSAL STRIPPING/RMVL POLYP Medical History [...] Maternal Grandfather Maternal Grandmother Mother Alive htn, [place], arthir itis Paternal Grandfather Paternal Grandmother Sister [...] Breast Cancer Screening 1955 Colorectal Cancer Screening: Colonoscopy 1954 Zoster Vaccines (1 of 2) 2004 Pneumococcal Vaccine: 50+ Years (2 of 2 - PCV) 05/15/2014 05/15/2013 DTaP,Tdap,and Td Vaccines (2 - Td or Tdap) 03/22/2022 03/22/2012 Falls Risk Assessment 10/27/2022 Medicare Annual Wellness Visit 10/27/2022 Osteoporosis Screening (Bone Density Screening) 10/27/2022 Social Influencers of Health Screening 10/27/2022 Depression Screening 11/28/2024 COVID-19 Vaccine ( season) 2025 Influenza Vaccine (#1) 2025 2, [...] Recently Relevant to Health Maintenance Insurance MEDICARE [facility] Care Teams Contract Recruiter Relationship Specialty Start Date End Date Milagros Mcdonald MD PCP - General Internal Medicine 03/12/22
--- OUTSIDE RECORDS SUMMARY | 2025-10-04 11:59 | XMS_ITS | Data Portability ---
Author Organization [place] - [facility], [facility] Address [address] [place] [address] Care Team Providers Care Separator Tender Name Role Phone SAMUEL MAGDALENO Primary Care Provider Assessment Encounter Date Assessment Date Assessment LastModified by Organization Details LastModified Time 12/17/2021 12/17/2021 In addition to MDM documentation, add relevant primary/secondary medical conditions and status of each condition as diagnoses using the '+' above SSMILE Score Risk Stratification Table (Risk Score from Social History) High Risk Area for Hospital Readmission Risk Level Plan S ymptoms Does patient have ongoing symptoms? Low Risk S killed Needs Does patient have unaddressed skilled needs? (PT/OT/gas manager?) Low Risk If high risk, refer to Home Health. M edication (reconciliation and management) Low Risk I nformation (understanding of disease/treatment /red flags) Low Risk L inked up (access to healthcare, food, social support) Low Risk Resources available at [facility] E ngagement (patient or caregiver engaged in care plan) Low Risk FOR ANY HIGH RISK AREAS SCHEDULE PCP [...] I have accessed patient records on the [employer]. This information was pertinent in my medical decision making today. [email or web address] Not available 12/17/2021 17:24:02 Plan of Treatment [...] By Organization Details Last Modified Time 12/17/2021 [id number] You have a follo w up appointment [...] your paperwork to help navigate your care. [email or web address] [id number] Not available 12/17/2021 17:11:07 Reason for Referral None Reported. Procedures Surgical History Date Name Laterality Status Provider Name and Address Organization Details Recorded Time 022 Medication Review completed May MEGHA Khan [address], [place], [address], [place] [facility] 12/17/2021 17:11:08 Cholecystectomy completed Monika Khan NP [address], [place], [address], [place] [facility] 12/17/2021 17:02:55 Imaging Results None recorded. Procedure Notes None recorded. Medical Equipment None Reported. Allergies Allergen ID Allergen Name Allergen Category Reaction Reaction Severity Criticality Documentation Date Start Date Code Code System Note Provider Name and Address Organization Details Recorded Time 364954 Substance with sulfonami de structure and antibacte rial mechanism of action (substanc e) medicatio n Not available Not available Not available 12/17/2021 44193 8003 SNOMED Monika Khan NP [address] [place], [address], [place] [facility] 17:00:43 057864 iodine medicatio n Not available Not available Not available 12/17/2021 5933 RxNorm Monika Khan NP [address], [place], [address], [place] [facility] 17:00:53 Medications Name Sig Start Date Stop [...] CHF N Parkinson's Disease N Cancer N Dementia N Stroke N COPD N Depression N Hypothyroidism N Asthma N High Cholesterol Y Rheumatoid Arthritis N Pulmonary Embolism N Hypertension Y A-fib N Osteoporosis N Kidney Disease N Gynecological HistoryNo gynecological history recorded. Obstetrics History GPAL:G 0 P 0 0 0 0 Past Encounters Encounter ID Performer Location Encounter Start Date Encounter Closed Date Diagnosis/Indication Diagnosis SNOMED-CT Code Diagnosis ICD10 Code Diagnosis IMO Codes Diagnosis Note [id number] Monika Khan NP [facility] [address] [place] [address] 12/17/2021 16:59:34 12/19/2021 21:42:39 COVID-19 257567109 U07.1 Health Concerns Section Related Observation LastModified by Organization Detai ls LastModified Time None Recorded Concern Status LastModified by Organization Details LastModified Time None Recorded Advance Directives Directive None Recorded Payers Insurance Date Sequence Insurance Name Policy Number Policy Johnson Covered Member ID Johnson Member ID Guarantor Name 02/18/2022 1 [place] Cindylou Carlos [id number] 8 Cindylou Carlos 12/16/2021 1 [place] Cindylou Carlos [id number] 8 Cindylou Carlos 02/18/2022 2 [place] [...] noted and given fluids with DC home. [place] worse again yesterday. Went to the ED [...] BMs and urinary patterns have been constant. May MEGHA Khan [address], [place], [address], [place] [facility] 12/17/2021 17:24:22 OBGyn Episode No OBEpisode recorded.
== END 2025-10-04 10:11 | disposition home or self-care (01) ==
LOC: HO.US 10:10
PROVIDERS: PCP Physician Assistant Medical; Visit Provider Nurse Practitioner Family
DX: N20.0 Calculus of kidney (principal); N13.5 Crossing vessel and stricture of ureter without hydronephrosis
CPT/HCPCS: 76775

== ENCOUNTER → 2025-10-04 10:13 | Outpatient (BNV) | payer MEDICARE, SELFPAY | PROVIDERS: PCP Physician Assistant Medical; Visit Provider Specialist | DX: N20.0 Calculus of kidney (principal) | CPT/HCPCS: 76775 ==

== ENCOUNTER 2025-10-07 11:18 | Outpatient (AMB) | payer MEDICARE, SELFPAY ==
--- NOTE | 2025-10-07 11:19 | A.OFFVIS_ITS ---
Intake Visit Reasons: follow up/US/labs Intake Note: Pt presents to the office today as a follow up for unspecified hydronephrosis. Urology Meds:None Blood Thinners : Aspirin Labs done 09/30/25 BUN 24, Creatine 1.08 Imaging : Renal Ultrasound 10/06/25 Hedis Nurse Required: No Accompanied by: Self / Same As Patient Allergies sulfadiazine Allergy (Intermediate, Verified 10/07/25 11:48) Rash rosuvastatin Adverse Reaction (Mild, Verified 10/07/25 11:48) Nausea betadine Allergy (Mild, Uncoded 10/07/25 11:48) Rash doxazosin Allergy (Unknown, Uncoded 10/07/25 11:48) Unknown zetia Allergy (Unknown, Uncoded 10/07/25 11:48) Unknown amlodipine Adverse Reaction (Mild, Uncoded 10/07/25 11:48) Abdominal Pain chlorthalidone Adverse Reaction (Mild, Uncoded 10/07/25 11:48) Abdominal Pain Medication List - Last Reconciled 10/07/25 by ANNIA Naqvi- aspirin 81 mg PO DAILY bisacodyl 5 mg PO ONCE 1 day cetirizine (Zyrtec) 10 mg PO DAILY PRN cholecalciferol (vitamin D3) 50 mcg PO DAILY cyanocobalamin (vitamin B-12) 1,000 mcg PO DAILY esomeprazole magnesium (Nexium 24HR) 40 mg PO DAILY ferrous gluconate 324 mg PO DAILY 90 days fluticasone furoate 27.5 mcg/actuation (Flonase Sensimist) 2 sprays intranasal DAILY hydralazine 25 mg PO TID 90 days polyethylene glycol 3350 (Miralax) 238 grams PO ONCE simvastatin 40 mg PO BEDTIME HPI Comments Details: Anna is a very pleasant 70-year-old female patient of Dr. Rae. She has a past medical history of aortic aneurysm, nephrolithiasis, abdominal wall hernia, bilateral hydronephrosis, lower extremity edema, IBS, aortic stenosis, iron deficiency anemia, H pylori, chronic kidney disease, GERD, coronary artery stenosis, and PAD. 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 Of note, patient was seen approximately 6 months ago as a new patient at which time we discussed further interventions of these urological conditions. Plan was to undergo surveillance monitoring. Most recent renal imaging results reviewed with the patient today. 10/22 bilateral kidneys are normal in size and echotexture. No hydronephrosis of either kidney. Normal kidneys per radiology report. However in review of sonographic worksheet it does appear there is a known atrophic right kidney and question of left-sided pelvic fullness. She does discuss her frustration regarding variability and imaging. We did discuss obtaining repeat imaging and or obtaining nuclear renal scan for further assessment evaluation. However, she does find it difficult to maintain her appointments here at [facility] and is looking to establish urological care through [facility] as many of her providers are establish there. Most recent BUN and creatinine results reviewed with the patient today. BUN: 02/15 21, 08/18 23, 08/21 26, 02/19 28, 03/22 21, 03/22 23, 10/22 24 Creatinine: 02/15 1.19, 08/18 1.18, 08/21 1.26, 02/19 1.00, 03/22 0.98, 03/22 0.99, 1125 1.08 She does have a history of following up with a vascular surgeon at [facility] and underwent a 10 hour surgery 2 years ago at which time she underwent aortic endarterectomy and aortobifemoral bypass with reimplantation of her left renal artery 04/06/2023. Her postoperative course was complicated by an infected seroma of her thoracoabdominal incision which was evacuated on 04/29/2023. She is followed by Dr. Jenkins. She also discusses following up with Dr. Martinez for her chronic kidney disease. She reports many of her providers are through [facility] and feels for continuity of care she would like to establish care there. Previous urological records were printed and given to the patient for continuity of care. She currently denies any bothersome urinary issues or concerns. In office urinalysis results reviewed with the patient today. She denies hematuria, dysuria, foul smelling urine, changes to urinary stream, flank pain, fever, and or chills. She is happy with her current voiding parameters. All questions were answered. She otherwise offers no other issues or concerns at this time. [facility] Medical History Right hip pain Right low back pain Colon cancer screening Nephrolithiasis Hepatic steatosis Abdominal wall hernia Bilateral hydronephrosis Lower extremity edema Sensation of pressure in bladder area Urinary urgency Obesity with serious comorbidity Bilateral knee pain Bilateral hand pain History of acute renal failure IBS (irritable bowel syndrome) Aortic stenosis IDALMIS (iron deficiency anemia) Hyperlipidemia LDL goal <70 History of Helicobacter pylori infection CKD stage 3a, GFR 45-59 ml/min GERD (gastroesophageal reflux disease) Carotid artery stenosis Renovascular hypertension PAD (peripheral artery disease) Acute blood loss anemia Abdominal aortic aneurysm (AAA) Surgical History (Updated 09/30/25 @ 14:40 by Gerber Taylor MD) Hx of colonoscopy History of esophagogastroduodenoscopy (EGD) H/O vascular surgery H/O section H/O sinus surgery History of appendectomy History of cholecystectomy Family History Mother Cancer Heart disease Hyperlipidemia Hypertension Father Hypertension TIA (transient ischemic attack) Sister Heart disease Hypertension Maternal Grandmother Diabetes mellitus Maternal Grandfather Diabetes mellitus Paternal Grandmother Diabetes mellitus Paternal Grandfather Diabetes mellitus Social History (Updated 09/30/25 @ 13:41 by Nury Stockton) Household Members: Spouse Housing: [facility] Are you a primary technical healthcare consultant to a significant other at home: Yes Do you presently have visiting nurse or other home services: No Alcohol intake: former Patient Tobacco Use Status: Former Tobacco user Tobacco use type: Cigarette Cigarette Packs Per Day: 0.5 Years Smoked: 30 e-Cigarette/Vaping Use: Never Used Second Hand Smoke Exposure: No service: No Current occupational status: retired Current occupational exposures/hazards: No Cognitive needs: No Hearing needs: No Vision needs: No Review of Systems Eyes Reports no additional complaints ENT Reports no additional complaints Card Reports as per HPI Resp Reports no additional complaints GI Reports as per HPI Reports as per HPI Musc Reports as per HPI Neuro Reports no additional complaints Psych Reports no additional complaints Endo Reports no additional complaints Lyle/Lymph Reports no additional complaints Aller/Immun Reports no additional complaints Physical Exam Const General: cooperative, healthy appearing, comfortable, no acute distress, well developed, alert and awake Orientation/consciousness: patient oriented x3 Limitations: no limitations HEENT Head: Yes normal to inspection, Yes normocephalic and Yes atraumatic Ears: hearing grossly normal bilaterally Eyes General: appearance normal, both eyes and all related structures Neck Neck: Yes normal visual inspection and Yes trachea midline Chest Chest palpation & inspection: normal inspection of the chest Resp Effort & Inspection: normal respiratory effort and able to speak in complete sentences Cardio Rate: regular rate GI Inspection: Yes normal to inspection General: Yes no CVA tenderness Back/Spine/Pelvis Back: no CVA tenderness Skin General skin exam: no rashes or lesions noted Neuro General: patient oriented x3 Extrem General: Yes normal to inspection Psych Appearance: grossly normal and well kempt Mental Status: mental status grossly normal Speech and movement: Normal speech and movement present and Clear speech present Affect: normal affect Attitude: cooperative Thought process: Normal thought process present Thought content: Normal thought content present Insight: Fair insight present (Psych) Judgement: Fair judgement present (Psych) Results AMB Urinalysis, Automated UA Leukoctes 0 Alisha/uL Last Edit by Aarti Carmona [facility] on 10/07/25 11:31 UA Nitrite Negative Last Edit by Aarti Carmona [facility] on 10/07/25 11:31 UA Urobilinogen 0.2 mg/dL Last Edit by Aarti Carmona [facility] on 10/07/25 11:31 UA Protein 15 mg/dL Last Edit by [facility] Mathew [facility] on 10/07/25 11:31 UA pH 6.0 Last Edit by Aarti Carmona [facility] on 10/07/25 11:31 UA Blood 0 Rusty/uL Last Edit by Aarti Carmona [facility] on 10/07/25 11:31 UA Specific [place] 1.015 Last Edit by Aarti Carmona [facility] on 10/07/25 11:3 1 UA Ketone Negative Last Edit by Aarti Carmona [facility] on 10/07/25 11:31 UA Bilirubin 1 mg/dL Last Edit by [facility] Mathew [facility] on 10/07/25 11:31 UA Glucose 0 mg/dL Last Edit by Aarti Camrona [facility] on 10/07/25 11:31 Results Reviewed Results Reviewed: Laboratory Last Values Urine pH (Auto) 6.0 10/07/25 11:30 Specific [place] (Auto) 1.015 10/07/25 11:30 Urine Protein (Auto) 15 mg/dL 10/07/25 11:30 Glucose (UA)(Auto) 0 mg/dL 10/07/25 11:30 Urine Ketones (Auto) Negative 10/07/25 11:30 Urine Blood (Auto) 0 Rusty/uL 10/07/25 11:30 Urine Nitrite (Auto) Negative 10/07/25 11:30 Urine Bilirubin (Auto) 1 mg/dL 10/07/25 11:30 Urine Urobilinogen (Auto) 0.2 mg/dL 10/07/25 11:30 Leukocyte Esterase (Auto) 0 Alisha/uL 10/07/25 11:30 Date of Service: 10/04/25 Procedure(s): US renal BI Findings: Right kidney normal size and echotexture, 7.5 cm length. Left kidney normal size and echotexture, 10.8 cm length. No hydronephrosis of either kidney. Normal color Doppler IMPRESSION: 1. Normal kidneys. Assessment & Plan Assessment & Plan (1) UPJ obstruction, acquired: Code(s): N13.5 - Crossing vessel and stricture of ureter without hydronephrosis Category: Medical (2) Atrophic kidney: Code(s): N26.1 - Atrophy of kidney (terminal) Category: Medical (3) Urinary urgency: Code(s): R39.15 - Urgency of urination Category: Medical (4) Urinary frequency: Code(s): R35.0 - Frequency of micturition Category: Medical (5) Nephrolithiasis: Code(s): N20.0 - Calculus of kidney Category: Medical Plan In office urinalysis results reviewed with the patient today; as noted above. Recent renal imaging results reviewed with the patient today. We did discussed further workup to include nuclear renal scan and or repeat imaging. We discussed at length potential causes of these urological conditions and further interventions and risks and benefits of these interventions. Previous and current BUN and creatinine labs were reviewed with the patient today Continue to follow-up with providers as planned. Urological records were printed as requested and provided to the patient today. Follow-up PRN Patient Instructions: The patient had an opportunity to ask questions regarding the treatment plan. All questions were answered. Physical exam, labs, and imaging were discussed and reviewed in detail. As well as risks, benefits, and discussion of treatment ch oices. No major barriers to understanding were identified. The patient expressed understanding and agreement with the above treatment plan. The patient was made aware they should contact our office by phone for worsening of their current condition, the appearance of new symptoms, or with any questions or concerns. Compliance is encouraged with any medications and follow up testing that is ordered. It is a privilege to be allowed the opportunity to participate in? your urological care.? Again, if you have any questions or concerns If you have any questions or concerns please do not hesitate to contact me. The office is [phone]. This note is constructed using voice recognition software. While every effort has been made to ensure accuracy respiratory therapy assistant errors may have been included. Yours sincerely, NARESH Naqvi Coding Level of Care Code Est Pt Level 3 (93211) Complex EM visit Add On G2211 Diagnoses UPJ obstruction, acquired N13.5 Atrophic kidney N26.1 Urinary urgency R39.15 Urinary frequency R35.0 Nephrolithiasis N20.0
--- OUTSIDE RECORDS SUMMARY | 2025-10-07 13:38 | XMS_ITS | Encounter Summary ---
Author Organization [facility], Address [address] [place] [address] Phone Care Team Providers Care Fire Department Battalion Chief Name Role Phone Cierra Rae PA-C Primary Care Provider [phone] Encounter Details Date Type Department Care Team (Late st Contact Info) Description 12/07/2022 Documentation Only [facility], [address] [place] [address] Damion [place] [address] [place] [address] Social History Tobacco Use Types [...] Visit [facility] [address] [address] Edenilson Dyer MD [address] [address] documented as of this encounter Visit Diagnoses Not on filedocumented in this encounter Care Teams Fire Department Battalion Chief Relationship Specialty Start Date End Date Cierra Rae PA-C [address] [place] [address] PCP - General Internal Medicine 08/05/25 documented as of this encounter
--- OUTSIDE RECORDS SUMMARY | 2025-10-07 13:38 | XMS_ITS | Data Portability ---
Author Organization [place] - [facility], [facility] Address [address] [place] [address] Care Team Providers Care Fleet Sales Manager Name Role Phone SAMUEL MAGDALENO Primary Care Provider [phone] Assessment Encounter Date Assessment Date Assessment LastModified [...] Needs Does patient have unaddressed skilled needs? 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 M edication (reconciliation and management) Low Risk I nformation (understanding of disease/treatment /red flags) Low Risk L inked up (access to healthcare, food, social support) Low Risk Resources available at [employer] E ngagement (patient or caregiver engaged in [...] I have accessed patient records on the [employer]. This information was pertinent in my medical decision making today. [email or web address] Not available 12/17/2021 17:24:02 Plan of Treatment [...] By Organization Details Last Modified Time 12/17/2021 [id number] You have a follo w up appointment scheduled with your on . A Follow up appointment has been scheduled with [facility] on . In the morning of this appointment, the [facility] Care team will call you and let you know what window of time the team will arrive. If you are not feeling well and you feel you need to be evaluated urgently, please contact [facility] at the phone number printed on this paper to access care. Thank you for your visit with [facility] today. You were seen as a follow [...] in your condition between 8am-10pm, please call [facility] at the number listed on the top of your paperwork to help navigate your care. [email or web address] [id number] Not available 12/17/2021 17:11:07 Reason for Referral None Reported. Procedures Surgical History Date Name Laterality Status Provider Name and Address Organization Details Recorded Time 022 Medication Review completed May MEGHA Khan [address], [place], [address], [place] [facility] 12/17/2021 17:11:08 Cholecystectomy completed Monika Khan NP [address], [place], [address], [place] [facility] 12/17/2021 17:02:55 Imaging Results None recorded. Procedure Notes None recorded. Medical Equipment None Reported. Allergies Allergen ID Allergen Name Allergen Category Reaction Reaction Severity Criticality Documentation Date Start Date Code Code System Note Provider Name and Address Organization Details Recorded Time 571242 Substance with sulfonami de structure and antibacte rial mechanism of action (substanc e) medicatio n Not available Not available Not available 12/17/2021 19599 8003 SNOMED Monika Khan NP [address] [place], [address], [place] [facility] 17:00:43 147594 iodine medicatio n Not available Not available Not available 12/17/2021 5933 RxNorm Monika Khan NP [address], [place], [address], [place] [facility] 17:00:53 Medications [...] N Stroke N Dementia N Hypothyroidism N Asthma N COPD N Depression N High Cholesterol Y Rheumatoid Arthritis N Pulmonary Embolism N Hypertension Y Osteoporosis N A-fib N Kidney Disease N Gynecological HistoryNo gynecological history recorded. Obstetrics History GPAL:G 0 P 0 0 0 0 Past Encounters Encounter ID Performer Location Encounter Start Date Encounter Closed Date Diagnosis/Indication Diagnosis SNOMED-CT Code Diagnosis ICD10 Code Diagnosis IMO Codes Diagnosis Note [id number] Monika Khan NP [facility] [address] [place] [address] 12/17/2021 16:59:34 12/19/2021 21:42:39 COVID-19 [id number] U07.1 Health Concerns Section Related Observation LastModified by Organization Detai ls LastModified Time None Recorded Concern Status LastModified by Organization Details LastModified Time None Recorded Advance Directives Directive None Recorded Payers Insurance Date Sequence Insurance Name Policy Number Policy Johnson Covered Member ID Johnson Member ID Guarantor Name 02/18/2022 1 [place] Cindylou Carlos [id number] Cindylou Carlos 12/16/2021 1 [place] Cindylou Carlos [id number] 8 Cindylou Carlos 02/18/2022 2 [place] [...] noted and given fluids with DC home. [place] worse again yesterday. Went to the ED [...] constant. May MEGHA Khan [address], [place], [address], [place] [facility] 12/17/2021 17:24:22 OBGyn Episode No OBEpisode recorded.
--- OUTSIDE RECORDS SUMMARY | 2025-10-07 13:38 | XMS_ITS | Encounter Summary ---
Author Organization [facility] Address [address] [place] [address] Care Team Providers Care Casino Enforcement Agent Name Role Phone Milagros Mcdonald MD Primary Care Provider [phone] Reason for Visit * Reason Onset Date Comments Scheduling 09/27/2025 Encounter Details Date Type Department Care Team (Late st Contact Info) Description 09/27/2025 Telephone [facility] [place] [address] [place] [address] Tuan Lund MD [address] [place] [address] [address] [place] [address] Social History Tobacco Use Types Packs/Day Years Used Date Smoking Tobacco: Former Cigarettes 0.5 Q uit: 10/30/2019 Smokeless Tobacco: Never Alcohol Use Standard Drinks/Week Comments Not Currently 0 (1 standard drink = 0.6 oz pur e alcohol) Comments Unknown Sex and Gender Information Value Date Recorded Sex Assigned at Not on file Legal Sex Female 2:44 PM EST Gender Identity Not on file Sexual Orientation Not on file documented as of this encounter Progress Notes * Nicol Burch - 10/07/2025 10:26 AM EST Patient called back, declined appointment offer with Emilie. Patient added to cancellation list. * Lacie Cody - 09/27/2025 9:45 AM EDT Left message for patient to schedule followup from recall. BETTYE has openings Sunday 09/30 at this time. documented in this encounter Plan of Treatment Not on file documented as of this encounter Visit Diagnoses Not on filedocumented in this encounter Care Teams Casino Enforcement Agent Relationship Specialty Start Date End Date Milagros Mcdonald MD PCP - General Internal Medicine 03/12/22 documented as of this encounter
--- OUTSIDE RECORDS SUMMARY | 2025-10-07 13:38 | XMS_ITS | Clinical Summary ---
Author Organization [facility] Address [address] [facility] [address] [place] [address] Phone Care Team Providers Care Strap Cutting Machine Operator Name Role Phone Cierra Rae PA-C Primary Care Provider [phone] Allergies Active Allergy Reactions Criticality Noted Date [...] Office Visit [facility] [address] [phone] Edenilson Dyer MD Stage 3a chronic kidney disease (HCC) (Primary Dx); Mild aortic valve stenosis; Hypokalemia; Hypertension; Hyperkalemia; Dyslipidemia; Carotid artery stenosis <Unspecified side>; Atrophy of right kidney; Other acute kidney failure (HCC); Abdominal aortic aneurysm (HCC) 08/05/2025 Documentation Only [facility] [address] [phone] Edenilson Dyer MD 08/05/2025 Documentation Only [facility] [address] [phone] Edenilson Dyer MD 08/05/2025 Refill [facility] [address] [phone] Austin Souza 08/03/2025 Orders Only [facility] [address] [phone] Edenilson Dyer MD Stage 3a chronic kidney disease (HCC); Hypokalemia; Hypertension; Hyperkalemia; Dyslipidemia; Atrophy of right kidney; Other acute kidney failure (HCC); Abdominal aortic aneurysm (HCC) 07/31/2025 Orders Only [facility] [address] [address] Edenilson Dyer MD from Last 3 Months [...] Office Visit [facility] [address] [address] Edenilson Dyer MD [address] [address] Health Maintenance Due Date Last Done Comments [...] Creatinine, Ur 105.4 Not Estab. mg/dL [facility] Protein, Ur 19.7 Not Estab. mg/dL [facility] Urine Protein/Creatin ine Ratio 187 0 - 200 mg/g creat [facility] 07/31/2025 6:53 AM EDT 07/31/2025 us Edenilson Dyer MD LAB URINE ORDERABLES Final Re sult [facility] [address] [place] [address] * Vitamin D 25 Hydroxy (07/31/2025 6:53 AM EDT) Vitamin D, 25-OH, Total 38.0 30.0 - 100.0 ng/mL [facility] Comment: Vitamin D deficiency has been defined by the [place] of Medicine and an Endocrine Society practice guideline as a level of serum 25-OH vitamin D less than 20 ng/mL (1,2). The Endocrine Society went on to further define vitamin D insufficiency as a level between 21 and 29 ng/mL (2). 1. IOM ([place] of Medicine). 2010. Dietary reference intakes for calcium and D. [place]: The National Academies Press. 2. Tameka MF, Corazon SEE, Jonathan OLSON, et al. Evaluation, treatment, and prevention of vitamin D deficiency: an Endocrine Society clinical practice guideline. JCEM. 2010; 96(7):1911-30. 07/31/2025 6:53 AM EDT 07/31/2025 us Edenilson Dyer MD LAB BLOOD ORDERABLES Final Re sult Performing Organization Address City/[facility]/ZIP Co de Phone Number [facility] [address] [place] [address] * (ABNORMAL) CBC and Differential (07/31/2025 6:53 AM EDT) WBC 4.5 3.4 - 10.8 x10E3/uL [facility] RBC 3.43(L) 3.77 - 5.28 x10E6/uL [facility] Hemoglobin 10.3(L) 11.1 - 15.9 g/dL [facility] Hematocrit 31.5(L) 34.0 - 46.6 % [facility] MCV 92 79 - 97 fL [facility] MCH 30.0 26.6 - 33.0 pg [facility] MCHC 32.7 31.5 - 35.7 g/dL [facility] RDW 14.9 11.7 - 15.4 % [facility] Platelets 244 150 - 450 x10E3/uL [facility] Neutrophils Relative 51 Not Estab. % [facility] Lymphocytes Relative 32 Not Estab. % [facility] Monocytes 9 Not Estab. % [facility] Eosinophils Relative 6 Not Estab. % [facility] Basophils Relative 2 Not Estab. % [facility] Neutrophils Absolute 2.3 1.4 - 7.0 x10E3/uL [facility] Lymphocytes Absolute 1.5 0.7 - 3.1 x10E3/uL [facility] Monocytes Absolute 0.4 0.1 - 0.9 x10E3/uL [facility] Eosinophils Absolute 0.3 0.0 - 0.4 x10E3/uL [facility] Basophils Absolute 0.1 0.0 - 0.2 x10E3/uL [facility] Immature Granulocytes 0 Not Estab. % [facility] Immature Grans (Absolute) 0.0 0.0 - 0.1 x10E3/uL [facility] 07/31/2025 6:53 AM EDT 07/31/2025 us Edenilson Dyer MD LAB BLOOD ORDERABLES Final Re sult [facility] [address] [place] [address] * Uric Acid (07/31/2025 6:53 AM EDT) Uric Acid 7.9 3.1 - 7.9 mg/dL [facility] Comment:Therapeutic target f or gout patients: <6.0 07/31/2025 6:53 AM EDT 07/31/2025 Edenilson Dyer MD LAB BLOOD ORDERABLES Final Re sult [facility] [address] [place] [address] * Phosphorus (07/31/2025 6:53 AM EDT) Phosphorus 3.9 3.0 - 4.3 mg/dL [facility] 07/31/2025 6:53 AM EDT 07/31/2025 Edenilson Dyer MD LAB BLOOD ORDERABLES Final Re sult [facility] [address] [place] [address] * PTH, Intact (07/31/2025 6:53 AM EDT) PTH 48 15 - 65 pg/mL [facility] 07/31/2025 6:53 AM EDT 07/31/2025 Edenilson Dyer MD LAB BLOOD ORDERABLES Final Re sult [facility] [address] [place] [address] * Magnesium (07/31/2025 6:53 AM EDT) Magnesium 2.2 1.6 - 2.3 mg/dL [facility] 07/31/2025 6:53 AM EDT 07/31/2025 us Edenilson Dyer MD LAB BLOOD ORDERABLES Final [facility] [address] [place] [address] * (ABNORMAL) Comprehensive Metabolic Panel (07/31/2025 6:53 AM EDT) Glucose 102(H) 70 - 99 mg/dL [facility] BUN 24 8 - 27 mg/dL [facility] Creatinine 1.07(H) 0.57 - 1.00 mg/dL [facility] eGFR CKD-EPI CR 2020 56(L) >59 mL/min/1.7 3 [facility] BUN/Creatinine Ratio 22 12 - 28 [facility] Sodium 138 134 - 144 mmol/L [facility] Potassium 5.0 3.5 - 5.2 mmol/L [facility] Chloride 103 96 - 106 mmol/L [facility] Bicarbonate (CO2) 19(L) 20 - 29 mmol/L [facility] Calcium 9.5 8.7 - 10.3 mg/dL [facility] Total Protein 7.0 6.0 - 8.5 g/dL [facility] Albumin 4.5 3.8 - 4.8 g/dL [facility] Globulin 2.5 1.5 - 4.5 g/dL [facility] Total Bilirubin 0.3 0.0 - 1.2 mg/dL [facility] Alkaline Phosphatase 60 44 - 121 IU/L [facility] Comment: Effective August 12, 2025 Alkaline Phosphatase [...] (SGOT) 15 0 - 40 IU/L [facility] ALT (SGPT) 12 0 - 32 IU/L [facility] 07/31/2025 6:53 AM EDT 07/31/2025 us Edenilson Dyer MD LAB BLOOD ORDERABLES Final Re sult [facility] [address] [place] [address] from Last 3 Months Insurance Medicare [facility] Medicare [facility] Medicare Care Teams Strap Cutting Machine Operator Relationship Specialty Start Date End Date Cierra Rae PA-C [address] [place] [address] [phone] PCP - General Internal Medicine 08/05/25
--- OUTSIDE RECORDS SUMMARY | 2025-10-07 13:38 | XMS_ITS | Encounter Summary ---
Author Organization [facility], Address [address] [place] [address] Phone Care Team Providers Care Delivery Professional Name Role Phone Cierra Rae PA-C Primary Care Provider [phone] Encounter Details Date Type Department Care Team (Late st Contact Info) Description 12/07/2022 Documentation Only [facility], [address] [place] [address] Damion Dalton [place] [address] [place] [address] Social History Tobacco Use Types [...] [facility] [address] [address] Edenilson Dyer MD [address] [address] documented as of this encounter Visit Diagnoses Not on filedocumented in this encounter Care Teams Delivery Professional Relationship Specialty Start Date End Date Cierra Rae PA-C [address] [place] [address] PCP - General Internal Medicine 08/05/25 documented as of this encounter
--- OUTSIDE RECORDS SUMMARY | 2025-10-07 13:38 | XMS_ITS | Clinical Summary ---
Author Organization [address] [facility] Address [address] [place] [address] Phone Care Team Providers Care Road Inspector Name Role Phone Milagros Mcdonald MD Primary Care Provider [phone] Allergies Active Allergy Reactions Criticality Noted Date [...] Type Department Care Team Description 09/27/2025 Telephone [facility] [address] [place] [address] Tuan Lund MD 07/22/[address] [facility] [address] [place] [address] Tuan Lund MD from Last [...] Maternal Grandfather Maternal Grandmother Mother Alive htn, [place], arthir itis Paternal Grandfather Paternal Grandmother Sister [...] Recently Relevant to Health Maintenance Insurance MEDICARE [facility] Care Teams Road Inspector Relationship Specialty Start Date End Date Milagros Mcdonald MD PCP - General Internal Medicine 03/12/22
--- OUTSIDE RECORDS SUMMARY | 2025-10-07 13:38 | XMS_ITS | Encounter Summary ---
Author Organization [facility], Address [address] [place] [address] Phone Care Team Providers Care Label Paster Name Role Phone Cierra Rae PA-C Primary Care Provider [phone] Encounter Details Date Type Department Care Team (Late st Contact Info) Description 12/07/2022 Documentation Only [facility], [address] [place] [address] Damion Dalton [place] [address] [place] [address] Social History Tobacco Use Types [...] [facility] [address] [address] [place]son Dyer [place] [address] [address] documented as of this encounter Visit Diagnoses Not on filedocumented in this encounter Care Teams Label Paster Relationship Specialty Start Date End Date Cierra Rae PA-C [address] [place] [address] PCP - General Internal Medicine 08/05/25 documented as of this encounter
== END 2025-10-07 11:46 | disposition home or self-care (01) ==
LOC: HO.HUSH 11:19
PROVIDERS: PCP Physician Assistant Medical; Visit Provider Nurse Practitioner Family
DX: N13.5 Crossing vessel and stricture of ureter without hydronephrosis (principal); N26.1 Atrophy of kidney (terminal); R39.15 Urgency of urination; R35.0 Frequency of micturition; N20.0 Calculus of kidney
CPT/HCPCS: 99213; G2211

== ENCOUNTER → 2025-10-07 11:18 | Outpatient (BNVA) | payer MEDICARE, SELFPAY | PROVIDERS: PCP Physician Assistant Medical; Visit Provider Nurse Practitioner Family | DX: Z71.2 Person consulting for explanation of examination or test findings (principal); N26.1 Atrophy of kidney (terminal); R39.15 Urgency of urination; R35.0 Frequency of micturition; N20.0 Calculus of kidney | CPT/HCPCS: 99212 ==